=== PATIENT | female | born 1945 | race Caucasian/White ===

== ENCOUNTER 2019-12-21 13:35 | Outpatient (CLI) | payer MEDICARE, OTHER, SELFPAY ==
--- NOTE | 2019-12-21 13:47 | XR_ITS ---
WS: [id number] ANKLE LEFT TECHNIQUE: 3 views of the left ankle CLINICAL INFORMATION: LEFT ANKLE INJURY COMPARISON: None. FINDINGS: Diffuse soft tissue edema lower leg and ankle. Normal medial and lateral malleolus. Normal ankle mort ise. Normal talar dome. Plantar calcaneal spurring. XR/XR ankle LT min 3V* [id number] IMPRESSION: Marked diffuse soft tissue edema. No acute fractures.
== END 2019-12-21 13:36 | disposition home or self-care (01) ==
PROVIDERS: Family Provider Family Medicine; PCP Family Medicine; Visit Provider Nurse Practitioner Family
DX: S99.912A Unspecified injury of left ankle, initial encounter (principal); X58.XXXA Exposure to other specified factors, initial encounter; R60.9 Edema, unspecified
CPT/HCPCS: 73610

== ENCOUNTER 2020-03-09 14:23 | Outpatient (CLI) | payer MEDICARE, OTHER, SELFPAY ==
--- NOTE | 2020-03-09 | XR_ITS ---
WS: [id number] Bone mineral density performed on a [place], 03/09/2020 Clinical data: POST MENOPAUSAL Findings: The first 4 lumbar vertebral bodies demonstrated the bone mineral density of 1.198 g/cm2 for a young adult T score of 0.1. Measurement of the left hip reveals a bone mineral density of 0.929 g/cm2 with a young adult T score of -0.6. Measurement of the right hip reveals the bone mineral density of 0.919 g/cm2 for young adult T score of -0.7. XR/XR DEXA axial skeleton* [id number] Impression: Normal bone mineral density of the lumbar spine and both hips.
== END 2020-03-09 14:24 | disposition home or self-care (01) ==
LOC: RADWPI 14:27
PROVIDERS: Family Provider Family Medicine; PCP Family Medicine; Visit Provider Family Medicine
DX: Z78.0 Asymptomatic menopausal state (principal)
CPT/HCPCS: 77080

== ENCOUNTER 2020-07-23 11:39 | Emergency (ER) | payer MEDICARE, OTHER, SELFPAY ==
[2020-07-23 11:40] VITALS: BMI 25.0
[2020-07-23 11:51] VITALS: BP 168/112; PULSE 60; RESP 18; TEMP 36.4; O2SAT 97
--- NOTE | 2020-07-23 12:01 | XRR_ITS ---
PROCEDURE INFORMATION: Exam: XR Chest, 1 View Exam date and time: 07/23/2020 12:09 PM Age: 74 years old Clinical indication: Other: Weakness; Additional info: Stroke symptoms TECHNIQUE: Imaging protocol: XR of the chest Views: 1 view. COMPARISON: CR Chest 1 [place] [id number] 07/12/2015 11:44 AM FINDINGS: Lungs: Two granulomas are present in the lower left lung. There is a rounded retrocardiac opacity projecting over the right heart. This could represent a hiatal hernia, pleural mass, or paraspinous mass. Pleural space: Unremarkable. No pleural effusion. No pneumothorax. Heart/Mediastinum: No cardiomegaly. Bones/joints: Unremarkable. XR/XR chest 1V portable [id number] IMPRESSION: Rounded retrocardiac opacity projecting over the right heart. This could represent a hiatal hernia, pleural mass, or paraspinous mass. PA and lateral radiographs are recommended.
--- NOTE | 2020-07-23 12:01 | CTR_ITS ---
PROCEDURE INFORMATION: Exam: CT Head Without Contrast Exam date and time: 07/23/2020 12:09 PM Age: 74 years old Clinical indication: Other: Weakness; Additional info: Symptoms of acute stroke TECHNIQUE: Imaging protocol: Computed tomography of the head without contrast. Radiation optimization: All CT scans at this facility use at least one of these dose optimization techniques: automated exposure control; mA and/or kV adjustment per patient size (includes targeted exams where dose is matched to clinical indication); or iterative reconstruction. Other technique: STROKE PROTOCOL was implemented. COMPARISON: CT head wo con* [id number] 07/12/2015 11:49 AM RADIATION DOSE METRICS: Total DLP (mGy-cm): 788.95 FINDINGS: Brain: There is no acute intracranial hemorrhage, cerebral edema, or midline shift. Chronic microvascular ischemic changes are seen in the periventricular white matter. Age-related cerebral and cerebellar volume loss is present. Cerebral ventricles: No hydrocephalus. Bones/joints: No acute fracture. Paranasal sinuses: There is no acute sinusitis. Mastoid air cells: The mastoid air cells are clear. Orbital cavity: The included orbital structures are unremarkable. Vasculature: Atherosclerotic calcifications are seen involving the cavernous carotid arteries. Soft tissues: Unremarkable. CT/CT head wo con* [id number] IMPRESSION: 1. No acute intracranial abnormality. 2. Atrophy and chronic deep white matter ischemic changes. 3. [place] Stroke Program Early CT Score (ASPECTS) = 10 Radiation Dose CTDIVOL = (mGy): DLP = 788.95 (mGy-cm)
--- NOTE | 2020-07-23 12:01 | ECG_ITS ---
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1945 Requested By: Alyssa Luque I Order Number: [id number] Reading MD: ANISA MAHONEY Measurements Intervals [place] Rate: 61 P: 48 CO: 173 QRS: 19 QRSD: 97 T: 7 QT: 464 QTc: 469 Interpretive Statements SINUS RHYTHM NONSPECIFIC ST & T-WAVE ABNORMALITY PROLONGED QT INTERVAL Compared to ECG 07/12/2015 09:59:58 Prolonged QT interval now present Sinus bradycardia no longer present Sinus arrhythmia no longer present T-wave abnormality still present Electronically Signed On 07-23-2020 19:14:53 ETL 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
--- NOTE | 2020-07-23 12:04 | ED_ITS ---
HPI - Weakness General: Chief complaint: Neuro Symptoms/Deficit Stated complaint: WEAKNESS Time Seen by Provider: 07/23/20 11:40 Source: patient and EMS Mode of arrival: EMS Limitations: no limitations History of Present Illness: HPI Narrative: This is a 74-year-old female with a history of hypertension who presents to the emergency department with a 2-hour history of left-sided weakness. She originally said she has generalized weakness but on evaluation she is weak on the left side. She has significant difficulty walking. Because of all this she was brought in for evaluation. MD Complaint: focal weakness and difficulty walking Onset (ago): hour(s) (2) Duration: constant Location: E and [facility] Migration: none Severity: mild Exacerbating factors: none Associated symptoms: Denies chest pain, chills, confusion, melena, decreased appetite, diaphoresis, dysuria, easy bruising, fever(s), headache(s), myalgias, nausea, rash, short of breath, syncope or vomiting Review of Systems General: Reports: 10 or more systems reviewed and unremarkable except in HPI and below Const: Denies: fever(s), chills or diaphoresis Eyes: Denies: change in vision or blurry vision ENMT: Denies: throat pain, enlarged tonsils, odynophagia, hoarseness, mouth pain or swelling of lips/tongue Card: Denies: chest pain or syncope Resp: Denies: dyspnea, productive cough or non-productive cough GI: Denies: nausea, vomiting or melena : Denies: dysuria Musc: Denies: neck pain, back pain or extremity swelling Skin/Breast: Denies: rash, pruritus or erythema Neuro: Reports: weakness in extremities and difficulty walking; Denies: headache(s) or confusion Endo: Denies: polyuria, polydipsia or tired all the time Petey/Lymph: Denies: easy bruising Physical Exam Const: COMMON NORMALS: no acute distress, average body habitus, patient oriented x3, no limitations, healthy appearing, alert and well nourished HENMT: COMMON NORMALS: normocephalic, atraumatic and moist oral mucous membranes HEAD & SCALP: normocephalic and atraumatic Eye: COMMON NORMALS: Equal, round and reactive pupils present, EOMs intact bilaterally, conjunctivae normal and no scleral icterus CONJUNCTIVA: Yes conjunctivae normal PUPIL: Yes Equal, round and reactive pupils present Neck/C-Spine: COMMON NORMALS: no meningeal signs and no JVD Resp: COMMON NORMALS: normal respiratory effort, No retractions, No use of accessory muscles, clear to auscultation bilaterally and percussion normal AUSCULTATION: clear to auscultation bilaterally PERCUSSION: percussion normal Cardio: COMMON NORMALS: no JVD, regular rate, regular rhythm, S1 normal heart sound present, S2 normal heart sound present, No gallops present (Cardio), No clicks present (Cardio), No murmurs present (Cardio), No rub (Cardio) and Peripheral pulses 2+ throughout RATE: regular rate RHYTHM: regular rhythm HEART SOUNDS: S1 normal heart sound present and S2 normal heart sound present PERIPHERAL PULSES: Peripheral pulses 2+ throughout GI: COMMON NORMALS: Normal to inspection, nondistended, normoactive bowel soun ds present, Soft to palpation, non-tender, No hepatosplenomegaly present, no masses and no bruits PALPATION: Yes Soft to palpation and Yes No hepatosplenomegaly present Extremity: COMMON NORMALS: normal to inspection, full ROM, capillary refill normal, no calf tenderness and no pedal edema Neuro: COMMON NORMALS: patient oriented x3 SENSORIUM/ORIENTATION: Yes alert MENINGEAL SIGNS: Yes no meningeal signs OTHER: Patient with a left upper and lower extremity drift. 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 Her gait was disabling as she was unable to walk. 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 She therefore elected for thrombolysis as she met the criteria. She was transferred to [facility]. She had started to regain strength in her upper extremities after tPA and before she left the hospital. Consultations: Consultation #1: Discussed the patient with Dr. Gold, stroke neurologist at [facility] in [place]. It sounds like patient may have a CVA and she will conduct a telemedicine visit with the patient and call me back after. Time: 12:22 Consultation #2: Discussed with Dr. Gold again and she thinks it is a good i rip to administer TPA on this patient and transfer per our facility policy Time: 12:53 Consultation #3: Discussed the patient with Dr. Murrieta, neurologist at [facility] in [place]. He kindly accepted the patient to his service. Time: 14:54 Vital Signs: Vital signs: Vital Signs Temperature 98.1 F 07/23/20 16:19 Pulse Rate 78 07/23/20 16:19 Respiratory Rate 18 07/23/20 16:19 Blood Pressure 229/110 07/23/20 17:07 Pulse Oximetry 99 07/23/20 16:19 MDM - Weakness MDM Narrative: Medical decision making narrative: Patient with clinical features of a CVA and her symptoms were disabling, especially her gait. After consultation with neurology she was given tPA and already started showing sings of improvement before she left the ED. She is transferred to [facility]. She was hypertensive and her BP was too high for tPA so she was started on a nicardipine drip to get her SBP under 185 which we were successfully able to do. Medical Records: Attestation: I reviewed the patient's medical records. Lab Data: Attestation: I reviewed the patient's lab results. Labs: Lab Results 07/23/20 07/23/20 07/23/20 Range/Units 12:00 12:00 12:00 WBC 6.4 (4.0-10.0) 10^3/ uL RBC 4.28 (4.1-5.3) 10^6/u L Hgb 12.3 (11.5-15.3) g/dL Hct 37.1 (37.0-47.0) % MCV 86.7 (81-99) fL MCH 28.7 (28.0-34.0) pg MCHC 33.2 (30.0-36.0) g/dL RDW 13.0 (12.1-15.1) % Plt Count 234 (130-400) 10^3/c mm MPV 9.5 (7.4-10.4) fL Neut % (Auto) 61.7 % Lymph % (Auto) 27.4 % [place] % (Auto) 7.5 % Eos % (Auto) 2.6 % Baso % (Auto) 0.6 % Neut # (Auto) 3.96 (1.8-7.7) 10^3/u L Lymph # (Auto) 1.8 (0.8-4.8) 10^3/u L [place] # (Auto) 0.5 (0.2-0.9) 10^3/u L Eos # (Auto) 0.2 (0.0-0.8) 10^3/u L Baso # (Auto) 0.0 (0.0-0.1) 10^3/u L Nucleated RBC % (a uto) 0 % Nucleated RBCs # 0.0 /100WBC PT 13.80 (12.1-14.9) SECO NDS INR 1.03 (0.8-1.2) APTT 26.2 (23.9-36.7) SECO NDS Sodium 134 L (136-145) mmol/L Potassium 3.3 L (3.5-5.1) mmol/L Chloride 97 L (98-107) mmol/L Carbon Dioxide 26 (22-29) mmol/L Anion Gap 14.3 (5-19) BUN 10 (8-23) mg/dL Creatinine 0.6 (0.5-0.9) mg/dL GFR Calculation Not Reportable Glucose 105 (65-115) mg/dL POC Glucose (70-110) mg/dL Calculated Osmolal ity 277 L (285-295) mOsm/k g Calcium 9.0 (8.5-10.5) mg/dL Total Bilirubin 0.4 (0.15-1.2) mg/dL AST 13 (0-32) U/L ALT 11 (0-33) U/L Alkaline Phosphata se 80 (35-105) IU/L Total Protein 6.6 (6.6-8.7) g/dL Albumin 3.9 (3.5-5.2) g/dL Globulin 2.7 (1.3-4.6) g/dL Urine Color (Yellow) Urine Appearance (CLEAR) Urine pH (5-7) Ur Specific Gravit y (1.005-1.030) Urine Protein (Negative) Urine Glucose (UA) (Normal) Urine Ketones (Negative) Urine Blood (Negative) Urine Nitrate (Negative) Urine Bilirubin (Negative) Prot Sulfosalicyli c Acd (Negative) Urine Urobilinogen (Negative) mg/dL Ur Leukocyte [place] (Negative) Urine RBC (0-2) /hpf Urine WBC (0-5) /hpf Ur Squamous Epith Cells (0-5) /hpf Amorphous Sediment /hpf Urine Bacteria (NONE) /hpf Urine Opiates Scre en (Negative) ng/mL Ur Barbiturates Sc reen (Negative) ng/mL Ur Phencyclidine S crn (Negative) ng/mL Ur Amphetamines Sc reen (Negative) ng/mL U Benzodiazepines Scrn (Negative) ng/mL Urine Cocaine Scre en (Negative) ng/mL U Marijuana (THC) Screen (Negative) ng/mL SARS-CoV-2 Ag (Rap id) (Negative) 07/23/20 07/23/20 07/23/20 Range/Units 12:34 12:45 12:45 WBC (4.0-10.0) 10^3/ uL RBC (4.1-5.3) 10^6/u L Hgb (11.5-15.3) g/dL Hct (37.0-47.0) % MCV (81-99) fL MCH (28.0-34.0) pg MCHC (30.0-36.0) g/dL RDW (12.1-15.1) % Plt Count (130-400) 10^3/c mm MPV (7.4-10.4) fL Neut % (Auto) % Lymph % (Auto) % [place] % (Auto) % Eos % (Auto) % Baso % (Auto) % Neut # (Auto) (1.8-7.7) 10^3/u L Lymph # (Auto) (0.8-4.8) 10^3/u L [place] # (Auto) (0.2-0.9) 10^3/u L Eos # (Auto) (0.0-0.8) 10^3/u L Baso # (Auto) (0.0-0.1) 10^3/u L Nucleated RBC % (a uto) % Nucleated RBCs # /100WBC PT (12.1-14.9) SECO NDS INR (0.8-1.2) APTT (23.9-36.7) SECO NDS Sodium (136-145) mmol/L Potassium (3.5-5.1) mmol/L Chloride (98-107) mmol/L Carbon Dioxide (22-29) mmol/L Anion Gap (5-19) BUN (8-23) mg/dL Creatinine (0.5-0.9) mg/dL GFR Calculation Glucose (65-115) mg/dL POC Glucose 111 (70-110) mg/dL Calculated Osmolal ity (285-295) mOsm/k g Calcium (8.5-10.5) mg/dL Total Bilirubin (0.15-1.2) mg/dL AST (0-32) U/L ALT (0-33) U/L Alkaline Phosphata se (35-105) IU/L Total Protein (6.6-8.7) g/dL Albumin (3.5-5.2) g/dL Globulin (1.3-4.6) g/dL Urine Color Straw (Yellow) Urine Appearance Cloudy (CLEAR) Urine pH 8 H (5-7) Ur Specific Gravit y 1.010 (1.005-1.030) Urine Protein Neg (Negative) Urine Glucose (UA) Norm (Normal) Urine Ketones Negative (Negative) Urine Blood Neg (Negative) Urine Nitrate Negative (Negative) Urine Bilirubin Neg (Negative) Prot Sulfosalicyli c Acd Negative (Negative) Urine Urobilinogen Norm (Negative) mg/dL Ur Leukocyte [place] Negative (Negative) Urine RBC None (0-2) /hpf Urine WBC None (0-5) /hpf Ur Squamous Epith Cells 15-25 H (0-5) /hpf Amorphous Sediment 1+ /hpf Urine Bacteria 2+ H (NONE) /hpf Urine Opiates Scre en Negative (Negative) ng/mL Ur Barbiturates Sc reen Negative (Negative) ng/mL Ur Phencyclidine S crn Negative (Negative) ng/mL Ur Amphetamines Sc reen Negative (Negative) ng/mL U Benzodiazepines Scrn Negative (Negative) ng/mL Urine Cocaine Scre en Negative (Negative) ng/mL U Marijuana (THC) Screen Negative (Negative) ng/mL SARS-CoV-2 Ag (Rap id) (Negative) 07/23/20 Range/Units 14:36 WBC (4.0-10.0) 10^3/ uL RBC (4.1-5.3) 10^6/u L Hgb (11.5-15.3) g/dL Hct (37.0-47.0) % MCV (81-99) fL MCH (28.0-34.0) pg MCHC (30.0-36.0) g/dL RDW (12.1-15.1) % Plt Count (130-400) 10^3/c mm MPV (7.4-10.4) fL Neut % (Auto) % Lymph % (Auto) % [place] % (Auto) % Eos % (Auto) % Baso % (Auto) % Neut # (Auto) (1.8-7.7) 10^3/u L Lymph # (Auto) (0.8-4.8) 10^3/u L [place] # (Auto) (0.2-0.9) 10^3/u L Eos # (Auto) (0.0-0.8) 10^3/u L Baso # (Auto) (0.0-0.1) 10^3/u L Nucleated RBC % (a uto) % Nucleated RBCs # /100WBC PT (12.1-14.9) SECO NDS INR (0.8-1.2) APTT (23.9-36.7) SECO NDS Sodium (136-145) mmol/L Potassium (3.5-5.1) mmol/L Chloride (98-107) mmol/L Carbon Dioxide (22-29) mmol/L Anion Gap (5-19) BUN (8-23) mg/dL Creatinine (0.5-0.9) mg/dL GFR Calculation Glucose (65-115) mg/dL POC Glucose (70-110) mg/dL Calculated Osmolal ity (285-295) mOsm/k g Calcium (8.5-10.5) mg/dL Total Bilirubin (0.15-1.2) mg/dL AST (0-32) U/L ALT (0-33) U/L Alkaline Phosphata se (35-105) IU/L Total Protein (6.6-8.7) g/dL Albumin (3.5-5.2) g/dL Globulin (1.3-4.6) g/dL Urine Color (Yellow) Urine Appearance (CLEAR) Urine pH (5-7) Ur Specific Gravit y (1.005-1.030) Urine Protein (Negative) Urine Glucose (UA) (Normal) Urine Ketones (Negative) Urine Blood (Negative) Urine Nitrate (Negative) Urine Bilirubin (Negative) Prot Sulfosalicyli c Acd (Negative) Urine Urobilinogen (Negative) mg/dL Ur Leukocyte [place] (Negative) Urine RBC (0-2) /hpf Urine WBC (0-5) /hpf Ur Squamous Epith Cells (0-5) /hpf Amorphous Sediment /hpf Urine Bacteria (NONE) /hpf Urine Opiates Scre en (Negative) ng/mL Ur Barbiturates Sc reen (Negative) ng/mL Ur Phencyclidine S crn (Negative) ng/mL Ur Amphetamines Sc reen (Negative) ng/mL U Benzodiazepines Scrn (Negative) ng/mL Urine Cocaine Scre en (Negative) ng/mL U Marijuana (THC) Screen (Negative) ng/mL SARS-CoV-2 Ag (Rap id) Negative (Negative) Imaging Data^: CT Head: Radiologist's impression: [address] [address] [address] Scan Report Signed Patient: Cheyanne Fonseca #: [id number] : 3Acct#:[id number] Age/Sex: 74 / FADM Date: 07/23/20 Loc: [facility]/Bed: Attending Dr: Ordering Provider/Ordering MD: Alyssa Luque MD, [facility] Date of Service: 07/23/20 Procedure(s): CT head wo con* [id number] Accession Number(s): [id number] Report Number: [id number] PROCEDURE INFORMATION: Exam: CT Head Without Contrast Exam date and time: 07/23/2020 12:09 PM Age: 74 years old Clinical indication: Other: Weakness; Additional info: Symptoms of acute stroke TECHNIQUE: Imaging protocol: Computed tomography of the head without contrast. Radiation optimization: All CT scans at this facility use at least one of these dose optimization techniques: automated exposure control; mA and/or kV adjustment per patient size (includes targeted exams where dose is matched to clinical indication); or iterative reconstruction. Other technique: STROKE PROTOCOL was implemented. COMPARISON: CT head wo con* [id number] 07/12/2015 11:49 AM RADIATION DOSE METRICS: Total DLP (mGy-cm): 788.95 FINDINGS: Brain: There is no acute intracranial hemorrhage, cerebral edema, or midline shift. Chronic microvascular ischemic changes are seen in the periventricular white matter. Age-related cerebral and cerebellar volume loss is present. Cerebral ventricles: No hydrocephalus. Bones/joints: No acute fracture. Paranasal sinuses: There is no acute sinusitis. Mastoid air cells: The mastoid air cells are clear. Orbital cavity: The included orbital structures are unremarkable. Vasculature: Atherosclerotic calcifications are seen involving the cavernous carotid arteries. Soft tissues: Unremarkable. CT/CT head wo con* [id number] IMPRESSION: 1. No acute intracranial abnormality. 2. Atrophy and chronic deep white matter ischemic changes. 3. [place] Stroke Program Early CT Score (ASPECTS) = 10 Radiation Dose CTDIVOL = (mGy): DLP = 788.95 (mGy-cm) Dictated By:Aryan Hastings MD Signed By:Aryan Hastings MDSigned Date/Time:07/23/20 1231 DD/ 1230 CXR: Radiologist's impression: [address] [address] XRay Report Signed Patient: Cheyanne Fonseca #: [id number] : 3Acct#:[id number] Age/Sex: 74 / FADM Date: 07/23/20 Loc: [facility]/Bed: Attending Dr: Ordering Provider/Ordering MD: Alyssa Luque MD, [facility] Date of Service: 07/23/20 Procedure(s): XR chest 1V portable [id number] Accession Number(s): [id number] Report Number: [id number] PROCEDURE INFORMATION: Exam: XR Chest, 1 View Exam date and time: 07/23/2020 12:09 PM Age: 74 years old Clinical indication: Other: Weakness; Additional info: Stroke symptoms TECHNIQUE: Imaging protocol: XR of the chest Views: 1 view. COMPARISON: CR Chest 1 [place] [id number] 07/12/2015 11:44 AM FINDINGS: Lungs: Two granulomas are present in the lower left lung. There is a rounded retrocardiac opacity projecting over the right heart. This could represent a hiatal hernia, pleural mass, or paraspinous mass. Pleural space: Unremarkable. No pleural effusion. No pneumothorax. Heart/Mediastinum: No cardiomegaly. Bones/joints: Unremarkable. XR/XR chest 1V portable [id number] IMPRESSION: Rounded retrocardiac opacity projecting over the right heart. This could represent a hiatal hernia, pleural mass, or paraspinous mass. PA and lateral radiographs are recommended. Dictated By:Aryan Hastings MD Signed By:Aryan Hastings MDSigned Date/Time:07/23/201258 DD/ 57 EKG Data^: EKG 1: Attestation: I personally reviewed and interpreted this EKG as follows: EKG interpretation date: 07/23/20 EKG interpretation time: 11:52 Prior EKG tracings: not available for review Interpretation: NSR HR [address] changes prolonged QT interval Discharge Plan Discharge Patient Disposition: Xfer Short-Term Hosp Clinical Impression: Cerebrovascular accident Qualifiers: CVA mechanism: unspecified Qualified Code(s): I63.9 - Cerebral infarction, unspecified Discharge Orders: Transfer Out of Facility (Order); Ordered 07/27/20 Ordered By: Alyssa Luque Referrals: Migue Maher MD [Primary Care Provider] - Coding Level of Care Code ED Special Education Classroom Aide for Chg Fwd Exam Comprehensive
[2020-07-23 12:08] LABS: Basophils % 0.6 %; Eosinophils # 0.2 10^3/uL (0.0-0.8); Eosinophils % 2.6 %; Hematocrit 37.1 % (37.0-47.0); Hemoglobin 12.3 g/dL (11.5-15.3); Lymphocytes # 1.8 10^3/uL (0.8-4.8); Lymphocytes % 27.4 %; Mean Corpuscular HGB Conc 33.2 g/dL (30.0-36.0); Mean Corpuscular Hemoglobin 28.7 pg (28.0-34.0); Mean Corpuscular Volume 86.7 fL (81-99); Mean Platelet Volume 9.5 fL (7.4-10.4); Monocytes # 0.5 10^3/uL (0.2-0.9); Monocytes % 7.5 %; Neutrophils # 3.96 10^3/uL (1.8-7.7); Neutrophils % 61.7 %; Nucleated Red Blood Cells % 0 %; Platelet Count 234 10^3/cmm (130-400); Red Blood Count 4.28 10^6/uL (4.1-5.3); White Blood Count 6.4 10^3/uL (4.0-10.0)
[2020-07-23 12:25] LABS: INR 1.03 (0.8-1.2)
[2020-07-23 12:26] LABS: Partial Thromboplastin Time 26.2 SECONDS (23.9-36.7)
[2020-07-23 12:32] LABS: Alanine Aminotransferase 11 U/L (0-33); Albumin Level 3.9 g/dL (3.5-5.2); Alkaline Phosphatase 80 IU/L (35-105); Anion Gap 14.3 (5-19); Aspartate Amino Transferase 13 U/L (0-32); Blood Urea Nitrogen 10 mg/dL (8-23); Carbon Dioxide 26 mmol/L (22-29); Chloride 97 mmol/L (98-107); Globulin 2.7 g/dL (1.3-4.6); Glucose 105 mg/dL (65-115); Osmolality Calculated 277 mOsm/kg (285-295); Potassium 3.3 mmol/L (3.5-5.1); Sodium 134 mmol/L (136-145); Total Bilirubin 0.4 mg/dL (0.15-1.2); Total Protein 6.6 g/dL (6.6-8.7)
[2020-07-23 12:39] LABS: Glucose Point of Care 111 mg/dL (70-110)
[2020-07-23] MEDS: nicardipine 20 MG/200 ML PREMIX 5 MG IV ×2 (13:17→17:13)
[2020-07-23 14:09] LABS: Amphetamines Screen Urine Negative (Negative); Barbiturates Screen Urine Negative (Negative); Benzodiazepines Screen Urine Negative (Negative); Cocaine Screen Urine Negative (Negative); Opiate Screen Urine Negative (Negative); PCP Screen Urine Negative (Negative); THC Screen Urine Negative (Negative)
[2020-07-23 14:17] LABS: Add Urine Microscopic? YES; Bacteria Urine 2+ /hpf; Bilirubin Urine Neg (Negative); Blood Urine Neg (Negative); Glucose Urine UA Norm (Normal); Ketones Urine Negative (Negative); Leukocyte Esterase Urine Negative (Negative); Nitrate Urine Negative (Negative); Protein Urine Neg (Negative); Squamous Epithelial Cell Urine 15-25 /hpf (0-5); Sulfosalicylic Acid Urine Negative (Negative); Urine Appearance Cloudy (CLEAR); Urine Color Straw (Yellow); Urobilinogen Urine Norm (Negative); pH Urine 8 (5-7)
[2020-07-23 14:18] LABS: Add Urine Culture? No; Amorphous Sediment Urine 1+ /hpf
[2020-07-23 15:09] LABS: SARS Covid-2 Antigen Negative (Negative)
[2020-07-23] MEDS: ondansetron 2 mg/ML SDV 2 mL 4 MG IVP (15:36)
[2020-07-23 16:19] VITALS: BP 149/66; PULSE 78; RESP 18; TEMP 36.7; O2SAT 99
[2020-07-23 17:07] VITALS: BP 229/110
--- NOTE | 2020-07-23 17:09 | PC.NURSE ---
beginning bp was 229/110
--- NOTE | 2020-07-23 17:44 | PC.NURSE ---
patient sent to [facility] per ems
== END 2020-07-23 17:44 | disposition short-term general hospital (02) ==
PROVIDERS: Emergency Provider Family Medicine; PCP Family Medicine
DX: I63.9 Cerebral infarction, unspecified (principal)
CPT/HCPCS: 12345; 36416; 70450; 71045; 80053; 80306; 81001; 82962; 85025; 85610; 85730; 87426; 93005; 96365; 96366; 96375; 99282; 99285; J2405; J2997

== ENCOUNTER → 2020-08-01 14:55 | Outpatient (BNVA) | payer MEDICARE, SELFPAY | PROVIDERS: PCP Family Medicine; Visit Provider Internal Medicine Cardiovascular Disease | DX: I63.9 Cerebral infarction, unspecified (principal); I10 Essential (primary) hypertension | CPT/HCPCS: 80048; 83735 ==

== ENCOUNTER 2021-10-16 12:08 | Observation (INO) | payer MEDICARE, OTHER, SELFPAY ==
[2021-10-16] VITALS (24 sets, daily range): BP systolic 122–227; BP diastolic 55–102; PULSE 43–83; RESP 5–20; TEMP 36.3–36.7; O2SAT 95–98; BMI 30.4
--- NOTE | 2021-10-16 | USCV_ITS ---
Carotid Duplex Cheyanne Fonseca Age: 76 Gender: F : 1945 Exam Date: 10/16/2021 21:24 Ordering Phys: Juan Flower MD Technologist: [id number] Exam Location: [facility] [place] Indication: Syncope Risk Factors: Unknown Previous Vascular Surgery: Unknown Right Brachial BP: / Left Brachial BP: / Right Left Velocity (cm/s) Spectral Plaque Velocity (cm/s) Spectral Plaque Syst/Diast Broadening Syst/Diast Broadening 108.10/22.10 Prox CCA 114.70/ 19.80 99.20/ 14.30 Mid CCA 48.50 / 7.70 71.70/ 14.30 Distal CCA 62.80 / 7.70 100.30/24.30 Prox ICA 79.40 / 19.80 86.00/ 23.20 Mid ICA 101.40/ 24.30 66.20/ 15.40 Distal ICA 79.40 / 20.90 149.90 ECA 160.00 0.93 ICA/CCA 0.88 Antegrade Vertebral Antegrade 46.30/ 9.90 cm/s 42.20/ 8.50 cm/s Tri Subclavian Bi 122.4 211.1 0 0 CONCLUSIONS Right ICA stenosis <50%. Mild atheromatous plaque right carotid bulb/ICA. Left ICA stenosis <50%. Mild atheromatous plaque left carotid bulb/ICA. Normal antegrade Doppler flow noted in the right vertebral artery. Normal antegrade Doppler flow noted in the left vertebral artery. Angelo Ghotra MD (Electronically Signed) Final Date: 17 October 2021 09:00 S
--- NOTE | 2021-10-16 | USCV_ITS ---
LE Venous Duplex BILATERAL Cheyanne Fonseca Age: 76 Gender: F : 1945 Exam Date: 10/16/2021 21:48 Ordering Phys: Juan Flower MD Technologist: IRIS [place] [facility] [place]: LE Swelling HISTORY: Lower extremity swelling. Lower extremity pain. PROCEDURES: Venous duplex imaging was performed in bilateral lower extremities. The following venous structures were evaluated: common femoral vein, profunda vein, proximal portion of the greater saphenous vein, superficial femoral vein, and the popliteal vein. In addition, the posterior tibial and peroneal trunk were evaluated. Serial compression, augmentation maneuvers, and spectral Doppler flow evaluation were performed. FINDINGS: No evidence of DVT seen in any vessel visualized at this time. CONCLUSIONS No evidence of right lower extremity DVT. No evidence of left lower extremity DVT. Angelo Ghotra MD (Electronically Signed) Final Date: 17 October 2021 08:58 S
--- NOTE | 2021-10-16 12:22 | CT_ITS ---
WS: [id number] CT CERVICAL SPINE HISTORY: fall TECHNIQUE: Contiguous 2.5 mm axial imaging performed through the entire cervical spine. Sagittal and coronal reformats also performed. All CT scans at [facility] use at least one of these dose o ptimization techniques: automated exposure control; mA and/or kV adjustment per patient size (include s targeted exams where dose is matched to clinical indication); or iterative reconstruction. DLP: 594.28 mGy.cm COMPARISON: 10/24/2016 Mild curvature cervical spine. Posterior alignment is normal. No acute fractures are identified. Disc spaces are narrowed. Craniocervical junction is intact. Lateral masses are aligned and the odontoid process is normal. Bilateral facet joint arthritis throughout the cervical spine but greatest on the LEFT. Lung apices are clear. Visualized soft tissues of the neck are negative. There is moderate calcificat ion within the cervical portions of the carotid arteries. No adenopathy. CT/CT cervical spin wo con* [id number] IMPRESSION: 1. No acute cervical spine fracture. 2. Scoliosis and degenerative facet joint arthritis.
--- NOTE | 2021-10-16 12:22 | CT_ITS ---
WS: [id number] CT HEAD NONCONTRAST HISTORY: trauma TECHNIQUE: Contiguous axial imaging performed through the brain in 2.5 mm imaging. Bone and soft tiss ue windows. Sagittal and coronal reformats reviewed. All CT scans at [facility] use at least one of these dose optimization techniques: automated exposure control; mA and/or kV adjustment per pa tient size (includes targeted exams where dose is matched to clinical indication); or iterative recon struction. DLP: 919.58 mGy.cm COMPARISON: 07/12/2015 No acute intracranial hemorrhage, midline shift or mass effect. Mild atrophy and mild chronic microvascular ischemic disease. Ventricles: Normal size with no hydrocephalus. No inferior displacement of cerebellar tonsils. Paranasal sinuses: As visualized are clear. Mastoid air cells: Well pneumatized. Calvarium and scalp: Skull is intact with no soft tissue edema or swelling. Moderate soft tissue edema centered over the RIGHT zygomatic arch and RIGHT face. CT/CT head wo con* [id number] IMPRESSION: 1. No acute intracranial hemorrhage or edema. 2. Mild cerebral atrophy and chronic ischemic disease. 3. Soft tissue hematoma and contusion centered over the RIGHT zygomatic arch.
--- NOTE | 2021-10-16 12:22 | CT_ITS ---
WS: [id number] CT FACIAL BONES HISTORY: trauma TECHNIQUE: Images obtained from the supraorbital location through the mandible. Soft tissue and bone windows are reviewed. Coronal and sagittal reformats have also been submitted. DLP: 714.[address] scans at [facility] use at least one of these dose optimization techniques: automated e xposure control; mA and/or kV adjustment per patient size (includes targeted exams where dose is matc hed to clinical indication); or iterative reconstruction. COMPARISON: 11/09/2011 No nasal bone fracture. Nasal septum remains midline. No zygomatic arch fracture. No air-fluid levels within the sinuses. Pterygoid plates are intact. Mandibular condyles are normal. No mandible fractur e. Floor of the orbits is normal. No fracture through the roof of the orbits. There is a moderate amount of induration in the soft tissues centered over the RIGHT superior zygomat ic arch and a small laceration. The underlying bones are normal. Normal appearance of the orbits and globes. Tongue base is normal. Visualized parotid gland is normal. There are very few small subcentimeter cer vical chain lymph nodes. CT/CT facial bones wo con* [id number] IMPRESSION: 1. No facial bone fracture. 2. Soft tissue contusion centered over the RIGHT face and zygomatic arch. No u nderlying fracture.
--- NOTE | 2021-10-16 12:22 | ECG_ITS ---
[facility] Test Date: 2021-10-16 Pat Name: Cheyanne Fonseca Department: Room: Gender: Female Store Facility Technician: : 1945 Requested By: Steven Benitez Order Number: [id number] Hector MD: Basilia Hare M.D. Measurements Intervals [place] Rate: 66 P: 42 LA: 169 QRS: 14 QRSD: 89 T: 41 QT: 425 QTc: 447 Interpretive Statements SINUS RHYTHM NONSPECIFIC ST & T-WAVE ABNORMALITY Compared to ECG 07/23/2020 11:51:53 Prolonged QT interval no longer present T-wave abnormality still present Electronically Signed On 10-16-2021 17:42:27 RESIDENTIAL PROGRAM DIRECTOR by Basilia Hare M.D. [id number]
--- NOTE | 2021-10-16 12:23 | ED_ITS ---
HPI - Syncope General: Chief Complaint: Syncope Stated Complaint: STOKE LIKE SYMPTOMS, L SIDE WEAKNESS, HEADACHE Time Seen by Provider: 10/16/21 12:12 History of Present Illness: 68-year-old female presents to the emergency room with left-sided weakness and headache. She reports she was walking at [facility] and collapsed. She had no presyncopal symptoms. She denies any chest pain d izziness lightheadedness. She previously did have a stroke approximately 18 months ago. She is not have any weakness in any of her extremities at this time. Has no other focal neurologic deficits noted she does have some abrasion to the right side of her face no difficulty with speech or swallowing. She did have a brief loss of consciousness. She is on clopidogrel but she is not on any other anticoagulants. She does have a history of hypertension. MD complaint: loss of consciousness and collapsed Onset (ago): minute(s) Prodromal symptoms: none Witnessed: Yes - by Bystander Context: other (Walking) Associated symptoms: Reports weakness; Deny abdominal pain, chest pain, fever(s), headache(s), lightheadedness, nausea, short of breath or vertigo Treatments prior to arrival: none Review of Systems Const: Denies: fever(s) ENMT: Denies: throat pain, ear or mastoid pain, nasal discharge or nasal congestion Card: Denies: chest pain or lightheadedness Resp: Denies: dyspnea, productive cough or non-productive cough GI: Denies: abdominal pain or nausea : Denies: flank pain, difficulty voiding, dysuria, urinary frequency or urinary urgency Skin/Breast: Denies: rash or pruritus Neuro: Denies: headache(s) or vertigo [facility] ED PFSH: Medical History CVA (cerebral vascular accident) Depression Dyslipidemia Hypertension Family History Other CAD (coronary artery disease) Social History Smoking and tobacco status: former smoker Alcohol intake: never Physical Exam Const: GENERAL APPEARANCE: cooperative and comfortable ORIENTATION/CONSCIOUSNESS: Yes awake, Yes oriented to person, Yes oriented to place and Yes oriented to time HENMT: COMMON NORMALS: normocephalic and hearing grossly normal bilaterally HEAD & SCALP: normocephalic OTHER: Abrasions and slight swelling on the lateral right superior orbital ridge and over the right zygomatic arch Eye: COMMON NORMALS: Equal, round and reactive pupils present, EOMs intact bilaterally, conjunctivae normal and no scleral icterus CONJUNCTIVA: Yes conjunctivae normal PUPIL: Yes Equal, round and reactive pupils present Neck/C-Spine: COMMON NORMALS: no JVD Resp: COMMON NORMALS: normal respiratory effort, No retractions, No use of accessory muscles and clear to auscultation bilaterally AUSCULTATION: clear to auscultation bilaterally Cardio: COMMON NORMALS: no JVD, regular rate, regular rhythm and No murmurs present (Cardio) RATE: regular rate RHYTHM: regular rhythm GI: COMMON NORMALS: Soft to palpation and No hepatosplenomegaly present AUSCULTATION: Yes normoactive bowel sounds PALPATION: Yes Soft to palpation, No Tenderness to palpation present (GI), No Guarding due to palpation present ( GI) and Yes No hepatosplenomegaly present Extremity: COMMON NORMALS: normal to inspection, capillary refill normal, no clubbing, cyanosis or edema, no calf tenderness and no pedal edema Neuro: SENSORIUM/ORIENTATION: Yes oriented to person, Yes oriented to place and Yes oriented to time Skin: COMMON NORMALS: no rashes or lesions noted GENERAL SKIN EXAM: no rashes or lesions noted Course Vital Signs: Vital signs: Vital Signs Pulse Rate 61 10/16/21 14:45 Respiratory Rate 18 10/16/21 14:45 Blood Pressure 136/81 10/16/21 14:45 Pulse Oximetry 96 10/16/21 14:45 MDM - Syncope Medical Decision Making Patient has syncopal episode without any real prodromal symptoms. Echo done about 2 years ago did not show any significant abnormalities. She recently did have a stroke a few months ago was hospitalized here those records reviewed. No acute fractures she has an abrasion on the lateral supraorbital ridge not significant nor amenable to suturing at this time. Wearing Goeden put her on observation due to the syncope to rule out other potential causes and for further evaluation discussed with hospitalist orders written Lab Data : 10/16/21 12:00 10/16/21 12:00 Radiology Impressions Cervical Spine CT 10/16/21 12:22 IMPRESSION: 1. No acute cervical spine fracture. 2. Scoliosis and degenerative facet joint arthritis. Face CT 10/16/21 12:22 IMPRESSION: 1. No facial bone fracture. 2. Soft tissue contusion centered over the RIGHT face and zygomatic arch. No underlying fracture. Head CT 10/16/21 12:22 IMPRESSION: 1. No acute intracranial hemorrhage or edema. 2. Mild cerebral atrophy and chronic ischemic disease. 3. Soft tissue hematoma and contusion centered over the RIGHT zygomatic arch. Ribs X-Ray 10/16/21 13:11 IMPRESSION: 1. Probable nondisplaced fracture the posterior right 10th rib. Old right sixth rib fracture. 2. No pneumothorax. Shoulder X-Ray 10/16/21 13:11 IMPRESSION: 1. No fracture or dislocation. Other minor findings as above. Laboratory Results WBC 8.3 10^3/uL (4.0-10.0) 10/16/21 12:00 RBC 4.46 10^6/uL (4.1-5.3) 10/16/21 12:00 Hgb 12.4 g/dL (11.5-15.3) 10/16/21 12:00 Hct 38.0 % (37.0-47.0) 10/16/21 12:00 MCV 85.2 fl (81-99) 10/16/21 12:00 MCH 27.8 pg (28.0-34.0) L 10/16/21 12:00 MCHC 32.6 g/dL (30.0-36.0) 10/16/21 12:00 RDW 14.1 % (12.1-15.1) 10/16/21 12:00 Plt Count 305 10^3/cmm (130-400) 10/16/21 12:00 MPV 10.2 fL (7.4-10.4) 10/16/21 12:00 Neut % (Auto) 64.2 % 10/16/21 12:00 Lymph % (Auto) 25.9 % 10/16/21 12:00 [place] % (Auto) 6.7 % 10/16/21 12:00 Eos % (Auto) 2.2 % 10/16/21 12:00 Baso % (Auto) 0.5 % 10/16/21 12:00 Neut # (Auto) 5.35 10^3/uL (1.8-7.7) 10/16/21 12:00 Lymph # (Auto) 2.2 10^3/uL (0.8-4.8) 10/16/21 12:00 [place] # (Auto) 0.6 10^3/uL (0.2-0.9) 10/16/21 12:00 Eos # (Auto) 0.2 10^3/uL (0.0-0.8) 10/16/21 12:00 Baso # (Auto) 0.0 10^3/uL (0.0-0.1) 10/16/21 12:00 Nucleated RBC % (auto) 0 % 10/16/21 12:00 Nucleated RBCs # 0.0 /100WBC 10/16/21 12:00 D-Dimer 0.67 ug/mIFEU (0-0.59) H 10/16/21 12:00 Sodium 135 mmol/L (136-145) L 10/16/21 12:00 Potassium 4.2 mmol/L (3.5-5.1) 10/16/21 12:00 Chloride 98 mmol/L (98-107) 10/16/21 12:00 Carbon Dioxide 22 mmol/L (22-29) 10/16/21 12:00 Anion Gap 19.2 (5-19) H 10/16/21 12:00 BUN 17 mg/dL (8-23) 10/16/21 12:00 Creatinine 0.6 mg/dL (0.5-0.9) 10/16/21 12:00 GFR Calculation Not Reportable 10/16/21 12:00 Glucose 99 mg/dL (65-115) 10/16/21 12:00 Calculated Osmolality 282 mOsm/kg (285-295) L 10/16/21 12:00 Calcium 9.7 mg/dL (8.5-10.5) 10/16/21 12:00 Magnesium 2.0 mg/dL (1.7-2.3) 10/16/21 12:00 Total Bilirubin 0.7 mg/dL (0.15-1.2) 10/16/21 12:00 AST 16 U/L (0-32) 10/16/21 12:00 ALT 14 U/L (0-33) 10/16/21 12:00 Alkaline Phosphatase 97 IU/L (35-105) 10/16/21 12:00 Troponin T Baseline 7 ng/L (0-10) 10/16/21 12:00 Troponin T 120 Minute 6.00 ng/L (0-10) 10/16/21 14:00 Delta Troponin T -1.0 ABS# (0-10) L 10/16/21 14:00 NT-Pro-B Natriuret Pep 178 pg/mL (0-450) 10/16/21 12:00 Total Protein 7.3 g/dL (6.6-8.7) 10/16/21 12:00 Albumin 4.4 g/dL (3.5-5.2) 10/16/21 12:00 Globulin 2.9 g/dL (1.3-4.6) 10/16/21 12:00 TSH 1.20 uIU/mL (0.27-4.20) 10/16/21 12:00 Urine Color Yellow (Yellow) 10/16/21 13:42 Urine Appearance Cloudy (CLEAR) 10/16/21 13:42 Urine pH 7 (5-7) 10/16/21 13:42 Ur Specific [employer]on 1.010 (1.005-1.030) 10/16/21 13:42 Urine Protein Neg (Negative) 10/16/21 13:42 Urine Glucose (UA) Norm (Normal) 10/16/21 13:42 Urine Ketones 1+ (Negative) H 10/16/21 13:42 Urine Blood Neg (Negative) 10/16/21 13:42 Urine Nitrate Negative (Negative) 10/16/21 13:42 Urine Bilirubin Neg (Negative) 10/16/21 13:42 Urine Urobilinogen Norm mg/dL (Negative) 10/16/21 13:42 Ur Leukocyte Esterase 2+ (Negative) H 10/16/21 13:42 Urine RBC None /hpf (0-2) 10/16/21 13:42 Urine WBC 25-40 /hpf (0-5) H 10/16/21 13:42 Ur Squamous Epith Cells 80-100 /hpf (0-5) H 10/16/21 13:42 Amorphous Sediment Not Reportable 10/16/21 13:42 Urine Bacteria 1+ /hpf (NONE) H 10/16/21 13:42 Discharge Plan Discharge Patient Disposition: Placed in Observation Clinical Impression: Syncope and collapse, CVA (cerebral vascular accident), Hypertension, Rib fracture Condition: Stable Prescriptions: No Action magnesium oxide 400 mg magnesium tablet 400 mg PO DAILY 0RF bupropion HCl 150 mg tablet sustained-release 12 hr 150 mg PO BID 0RF lorazepam 0.5 mg tablet 0.5 mg PO BID PRN (Reason: Anxiety) 0RF clonidine HCl 0.1 mg tablet 0.1 mg PO QID PRN (Reason: hypertensive emergency) 0RF propranolol 40 mg tablet See Rx Instructions .ROUTE .COMPLEX 0RF Rx Instructions: 40mg po qam and 20mg po qpm Vitamin C 500 mg Tablet 500 mg PO DAILY 0RF Vitamin D3 50 mcg (2,000 unit) Tablet 50 mcg PO DAILY 0RF atorvastatin 40 mg tablet 40 mg PO BEDTIME 0RF potassium chloride 8 mEq capsule, extended release 8 meq PO QAM 0RF clopidogrel 75 mg tablet 75 mg PO QAM 0RF hydrochlorothiazide 25 mg tablet 50 mg PO QAM 0RF valsartan 160 mg tablet 160 mg PO QAM 0RF Referrals: Migue Maher MD [Primary Care Provider] - Coding Level of Care Code ED Broaching Machine Repairer for Chg Fwd Exam Comprehensive
[2021-10-16 12:33] LABS: Basophils % 0.5 %; Eosinophils # 0.2 10^3/uL (0.0-0.8); Eosinophils % 2.2 %; Hemoglobin 12.4 g/dL (11.5-15.3); Lymphocytes # 2.2 10^3/uL (0.8-4.8); Lymphocytes % 25.9 %; Mean Corpuscular HGB Conc 32.6 g/dL (30.0-36.0); Mean Corpuscular Hemoglobin 27.8 pg (28.0-34.0); Mean Corpuscular Volume 85.2 fl (81-99); Mean Platelet Volume 10.2 fL (7.4-10.4); Monocytes # 0.6 10^3/uL (0.2-0.9); Monocytes % 6.7 %; Neutrophils # 5.35 10^3/uL (1.8-7.7); Neutrophils % 64.2 %; Nucleated Red Blood Cells % 0 %; Platelet Count 305 10^3/cmm (130-400); Red Blood Count 4.46 10^6/uL (4.1-5.3); Red Cell Distribution Width 14.1 % (12.1-15.1); White Blood Count 8.3 10^3/uL (4.0-10.0)
[2021-10-16] MEDS: hyDRALAzine 20 mg/mL INJ 1 mL IVP (12:38)
[2021-10-16] MEDS: cloNIDine 0.1 mg Tablet PO (12:38)
[2021-10-16] MEDS: amlodipine 10 mg Tablet PO (12:38)
[2021-10-16 12:50] LABS: Troponin(5th) Baseline 7 ng/L (0-10)
[2021-10-16 12:57] LABS: Alanine Aminotransferase 14 U/L (0-33); Albumin Level 4.4 g/dL (3.5-5.2); Alkaline Phosphatase 97 IU/L (35-105); Anion Gap 19.2 (5-19); Aspartate Amino Transferase 16 U/L (0-32); Blood Urea Nitrogen 17 mg/dL (8-23); Calcium 9.7 mg/dL (8.5-10.5); Carbon Dioxide 22 mmol/L (22-29); Chloride 98 mmol/L (98-107); Globulin 2.9 g/dL (1.3-4.6); Glucose 99 mg/dL (65-115); Osmolality Calculated 282 mOsm/kg (285-295); Potassium 4.2 mmol/L (3.5-5.1); Sodium 135 mmol/L (136-145); Total Bilirubin 0.7 mg/dL (0.15-1.2); Total Protein 7.3 g/dL (6.6-8.7)
--- NOTE | 2021-10-16 13:11 | XR_ITS ---
WS: [id number] Exam: XR shoulder RT min 2V* [id number] Date/Time of Exam: 10/16/2021 1:34 PM Reason For Exam: pain No acute fracture or dislocation. Soft tissue calcification along the humeral head may indicate calci fic bursitis. Minimal degenerative change at the AC joint. XR/XR shoulder RT min 2V* [id number] IMPRESSION: 1. No fracture or dislocation. Other minor findings as above.
--- NOTE | 2021-10-16 13:11 | XR_ITS ---
WS: [email or web address] Exam: XR ribs RT mn 3V w CXR1V [id number] Date/Time of Exam: 10/16/2021 1:34 PM Reason For Exam: fall Compared to chest x-ray 07/23/2020. Probable nondisplaced fracture of the posterior right 10th rib. Old fracture of the lateral aspect of the right sixth rib. No pneumothorax. No pleural or pulmonary reactive changes. The lungs are clear and fully expanded. Cardiomediastinal structures are unremarkable for technique. No pleural effusions . XR/XR ribs RT mn 3V w CXR1V [id number] IMPRESSION: 1. Probable nondisplaced fracture the posterior right 10th rib. Old right sixth rib fracture. 2. No pneumothorax.
[2021-10-16 14:16] LABS: Urine Appearance Cloudy (CLEAR); Urine Color Yellow (Yellow); pH Urine 7 (5-7)
[2021-10-16 14:17] LABS: Add Urine Culture? No; Add Urine Microscopic? YES; Bacteria Urine 1+ /hpf; Bilirubin Urine Neg (Negative); Blood Urine Neg (Negative); Glucose Urine UA Norm (Normal); Ketones Urine 1+ (Negative); Leukocyte Esterase Urine 2+ (Negative); Nitrate Urine Negative (Negative); Protein Urine Neg (Negative); Squamous Epithelial Cell Urine 80-100 /hpf (0-5); Urobilinogen Urine Norm (Negative); WBC Urine 25-40 /hpf (0-5)
--- NOTE | 2021-10-16 14:22 | ECG_ITS ---
[facility] Test Date: 2021-10-16 Pat Name: Cheyanne Fonseca Department: Room: Gender: Female Freelance Data Entry: : 1945 Requested By: Steven Benitez Order Number: [id number] Hector MD: Basilia Hare M.D. Measurements Intervals [place] Rate: 72 P: 25 IL: 156 QRS: 36 QRSD: 102 T: -5 QT: 403 QTc: 444 Interpretive Statements SINUS RHYTHM ST DEVIATION AND MODERATE T-WAVE ABNORMALITY, CONSIDER ANTEROLATERAL ISCHEMIA [-0.1+ mV T-WAVE IN V3-V6] Compared to ECG 10/16/2021 12:33:02 Possible ischemia now present T-wave abnormality still present Electronically Signed On 10-16-2021 17:44:18 BREAKER MECHANIC by Basilia Hare M.D. [id number]
--- NOTE | 2021-10-16 14:31 | PC.NURSE ---
Called pt's son, Migue at her request to update him on her condition. Pt is home w her son. The has severe dementia & Mrs. Fonseca is concerned about his wellbeing w her being gone.
--- NOTE | 2021-10-16 15:09 | USCV_ITS ---
Cheyanne Fonseca Age: 76 Gender: F : 1945 Exam Date: 10/16/2021 16:13 Ordering Phys: Juan Flower MD Technologist: PAIGE Exam Location: [facility] [place] Indication: Syncope BP: 110 / 50 HR: 67 Rhythm: Sinus Technical Quality: Adequate MEASUREMENTS (Male / Female) Normal Values 2D ECHO LV Diastolic Diameter PLAX 5.1 cm 4.2 - 5.9 / 3.9 - 5.3 cm LV Systolic Diameter PLAX 3.1 cm IVS Diastolic Thickness 1.0 cm 0.6 - 1.0 / 0.6 - 0.9 cm IVS Systolic Thickness 1.5 cm LVPW Diastolic Thickness 0.8 cm 0.6 - 1.0 / 0.6 - 0.9 cm LVPW Systolic Thickness 1.4 cm LVOT Diameter 2.0 cm LV Ejection Fraction 2D Teich 68.9 % LV Ejection Fraction MOD 2C 78.7 % LV Ejection Fraction 2C AL 78.6 % LA Diameter 3.1 cm Aorta at Sinotubular Diameter 2.1 cm M-MODE Aortic Annulus Diameter 3.2 cm LA Ao Ratio MM 1.1 MV E Point Septal Separation 0.5 cm DOPPLER AV Peak Velocity 140.0 cm/s LVOT Peak Velocity 111.0 cm/s AV Area Cont Eq vti 2.7 cm squared AV Area Cont Eq pk 2.5 cm squared MV Area PHT 3.7 cm squared Mitral E to A Ratio 0.8 MV E' Velocity 51.0 cm/s Mitral E to MV E' Ratio 16.3 Mitral E to LV E' Lateral Ratio 14.3 Mitral E to LV E' Septal Ratio 19.3 TR Peak Velocity 392.7 cm/s TR Peak Gradient 61.7 mmHg TV Peak E Velocity 56.0 cm/s Right Atrial Pressure 3.0 mmHg Pulmonary Artery Systolic Pressu 64.7 mmHg PV Peak Velocity 87.0 cm/s RV Acceleration Time 0.1 s RV Ejection Time 0.3 s RV AcT/ET 0.4 FINDINGS Left Ventricle Normal left ventricular size, systolic function and wall thickness, with no diagnostic regional wall motion abnormalities. Left ventricular ejection fraction is estimated at 75 %. Grade II diastolic dysfunction, moderately elevated filling pressures. Right Ventricle Normal right ventricular size and systolic function. Pulmonary artery pressure estimated at 26 mmHg. Right Atrium Normal right atrial size. Left Atrium Mildly increased left atrial size. Mitral Valve Structurally normal mitral valve. No mitral valve stenosis. No significant mitral valve regurgitation. Aortic Valve Structurally normal trileaflet aortic valve. No aortic valve stenosis. No aortic valve regurgitation. Tricuspid Valve Structurally normal tricuspid valve. Trace tricuspid valve regurgitation. Pulmonic Valve Pulmonic valve not well visualized. No pulmonary valve stenosis. No pulmonary valve regurgitation. Pericardium No pericardial effusion. Aorta Normal size aortic root and proximal ascending aorta. CONCLUSIONS 1. Normal left ventricular size, systolic function and wall thickness, with no diagnostic regional wall motion abnormalities. Left ventricular ejection fraction is estimated at 75 %. Grade II diastolic dysfunction, moderately elevated filling pressures. 2. Normal right ventricular size and systolic function. 3. Normal pulmonary artery pressure. 4. No significant valvular abnormality. 5. When compared to previous echocardiogram dated 02/23/2019, there may not have been any significant change. Basilia Hare MD (Electronically Signed) Final Date: 17 October 2021 11:19 S
--- NOTE | 2021-10-16 15:12 | ECG_ITS ---
[facility] Test Date: 2021-10-17 Pat Name: Cheyanne Fonseca Department: Room: 105 Gender: Female Block Out Machine Operator: Sandra Cindy : 1945 Requested By: Juan Flower Order Number: [id number] Hector MD: Sophie Bales M.D. Interpretive Statements NAME OF STUDY: LEXISCAN SESTAMIBI STRESS TEST INDICATION: Syncope, PROCEDURE: At the baseline, the EKG revealed sinus bradycardia with an diffuse nonspecific ST-T changes.. The baseline blood pressure was 107/60 mm Hg with a heart rate of 49 beats/min. Lexiscan was infused over a period of 20 seconds. A total of 0.4 milligrams of Lexiscan was infused. The stress phase was continued for a total of 5 minutes. Heart rate at the end of the stress phase was 37 with a blood pressure 166/48. The EKG at the peak infusion revealed no significant changes. Sestamibi was injected 20 seconds after the Lexiscan infusion. Blood pressure at the end of the recovery phase was 124/55 with a heart rate of 54 per minute. CONCLUSION: 1. No significant EKG changes with the LexiScan infusion 2. No LexiScan induced chest pain or cardiac arrhythmia 3. Normal blood pressure and heart rate response 4. Sestamibi/sestamibi perfusion scan pending; see separate report. Electronically Signed On 10-19-2021 11:05:28 CAR WASH ATTENDANT by Sophie Bales M.D. [id number]
--- NOTE | 2021-10-16 15:19 | P.HP_ITS ---
Providers/Chief Complaint Primary Care Provider: Migue Maher MD Chief Complaint: STOKE LIKE SYMPTOMS, L SIDE WEAKNESS, HEADACHE History of Present Illness Cheyanne Fonseca is a 76 year old female with a past medical history of CVA, hypertension, hyperlipidemia, depression who presents [facility] for syncopal and collapse. According to patient, she has been doing well, no recent illness, recent hospitalization, no chest pain, no palpitations, no shortness of breath, no calf pain, no calf swelling, no hemoptysis, no recent surgery, recent immobility, she does have bilateral extremity edema which is chronic for her. Today at noon she was picking up her 's prescription, [employer], when she was walking down the first I will she suddenly collapsed. She passed out, was on the floor for roughly 2 minutes, no witnessed seizure-like episodes, is not clear if anybody checked her pulse, or checked her breathing. But she regained consciousness after about 2 minutes was a bit groggy, denies a prior history of passing out, no cardiovascular history, does report a history of a abnormal heart rhythm. Work-up in the emergency room she was found to have right 10th rib fracture. Soft tissue hematoma and contusion over the right zygomatic arch Review of Systems Const: Denies: fever(s), chills, fatigue or malaise Eyes: Denies: change in vision or blurry vision ENMT: Denies: nasal congestion Card: Reports: syncope; Denies: chest pain, palpitations, irregular heart rhythm or lightheadedness Resp: Denies: dyspnea, productive cough, non-productive cough or wheezing GI: Denies: abdominal pain, nausea, vomiting, hematemesis, diarrhea, constipation, hematochezia or melena : Denies: flank pain, dysuria or urinary frequency Musc: Denies: neck pain or back pain Skin/Breast: Denies: rash Neuro: Denies: headache(s), dizziness or vertigo Psych: Denies: anxiety or depression Endo: Denies: polyuria or polydipsia Medications/Allergies Home Medications Medication Instructions Recorded Confirmed Last Taken Type bupropion HCl 150 mg tablet,12 hr 150 mg PO BID 07/23/20 10/16/21 10/16/21 07:00 History sustained-release lorazepam 0.5 mg tablet 0.5 mg PO BID PRN 07/23/20 10/16/21 Unknown History clonidine HCl 0.1 mg tablet 0.1 mg PO QID PRN 08/01/20 10/16/21 Unknown History propranolol 40 mg tablet See Rx Instructions .ROUTE .COMPLEX 09/05/20 10/16/21 10/16/21 07:00 History magnesium oxide 400 mg PO DAILY tab 10/03/21 10/16/21 Unknown History ascorbic acid (vitamin C) 500 mg 500 mg PO DAILY 10/16/21 10/16/21 Unknown History tablet (Vitamin C) atorvastatin 40 mg tablet 40 mg PO BEDTIME 10/16/21 10/16/21 10/15/21 History cholecalciferol (vitamin D3) 50 50 mcg PO DAILY 10/16/21 10/16/21 Unknown Hist ory mcg (2,000 unit) tablet (Vitamin D3) clopidogrel 75 mg tablet 75 mg PO QAM 10/16/21 10/16/21 10/16/21 07:00 History hydrochlorothiazide 25 mg tablet 50 mg PO QAM 10/16/21 10/16/21 10/16/21 07:00 History potassium chloride 8 mEq 8 meq PO QAM 10/16/21 10/16/21 10/16/21 07:00 History capsule,extended release valsartan 160 mg tablet 160 mg PO QAM 10/16/21 10/16/21 10/16/21 07:00 History Allergies Allergy/AdvReac Type Severity Reaction Status Date / Time aspirin Allergy Unknown Unknown Verified 10/16/21 14:46 Sulfa (Sulfonamide Allergy Unknown Unknown Verified 10/16/21 14:46 Antibiotics) contrast dye Allergy Unknown Unknown Uncoded 10/03/21 10:25 PFSH Acute PFSH: Medical History CVA (cerebral vascular accident) Depression Dyslipidemia Hypertension Family History Other CAD (coronary artery disease) Social History Smoking and tobacco status: former smoker Alcohol intake: never Vitals/I&O/Wt Last Vital Signs Pulse 61 10/16/21 14:45 Resp 18 10/16/21 14:45 BP 136/81 10/16/21 14:45 Pulse Ox 96 10/16/21 14:45 Weight last 48 hrs Weight 83.007 kg Physical Exam Const: COMMON NORMALS: no acute distress and patient oriented x3 GENERAL APPEARANCE: cooperative, well kempt and well developed HENMT: COMMON NORMALS: normocephalic and Normal external nose present HEAD & SCALP: normocephalic FACE & SINUS: normal facial exam NOSE: Normal external nose present Eye: COMMON NORMALS: Equal, round and reactive pupils present, EOMs intact bi laterally, conjunctivae normal and no scleral icterus PUPIL: Yes Equal, round and reactive pupils present Neck/C-Spine: COMMON NORMALS: full ROM, no lymphadenopathy, no JVD and Thyroid normal THYROID: Thyroid normal Lymph: LYMPHATIC: no lymphadenopathy noted Chest: COMMONS NORMALS: normal inspection of the chest Resp: COMMON NORMALS: normal respiratory effort, No retractions, No use of accessory muscles and clear to auscultation bilaterally AUSCULTATION: clear to auscultation bilaterally Cardio: COMMON NORMALS: regular rate, regular rhythm, S1 normal heart sound present, S2 normal heart sound present, No murmurs present (Cardio) and Peripher al pulses 2+ throughout RATE: regular rate RHYTHM: regular rhythm HEART SOUNDS: S1 normal heart sound present and S2 normal heart sound present PERIPHERAL PULSES: Peripheral pulses 2+ throughout GI: COMMON NORMALS: Normal to inspection, nondistended, normoactive bowel sounds present, Soft to palpation, non-tender and No hepatosplenomegaly present PALPATION: Yes Soft to palpation and Yes No hepatosplenomegaly present : COMMON NORMALS: Yes no CVA tenderness Extremity: COMMON NORMALS: normal to inspection, full ROM, capillary refill normal and no pedal edema Neuro: COMMON NORMALS: patient oriented x3, CN's II-XII intact bilaterally, moves all extremities, no focal motor deficits and no sensory deficits noted Psych: COMMON NORMALS: mental status grossly normal, Normal thought process pr esent, cooperative and speech normal APPEARANCE: Yes well kempt SPEECH: Yes normal speech THOUGHT PROCESS: Normal thought process present Skin: COMMON NORMALS: turgor normal and no jaundice NARRATIVE SKIN EXAM: Multiple bruises, right orbit, right zygomatic arch, right shoulder, right hand GENERAL SKIN EXAM: turgor normal Data : 10/16/21 12:00 02/22/22 12:00 A&P Assessment and plan (1) Syncope and collapse: Status: Acute (2) Leg swelling: Status: Acute (3) Dyslipidemia: Status: Acute (4) Hypertension: Status: Acute (5) CVA (cerebral vascular accident): Status: Acute Qualifiers: CVA mechanism: unspecified Qualified Code(s): I63.9 - Cerebral infarction, unspecified (6) Rib fracture: Status: Acute Plan Syncope and collapse -History is highly concerning for cardiac arrhythmia, leading to syncope and collapse -Admit to CSU -Telemetry monitoring -Serial troponins, serial EKGs -Continue statin, Plavix, aspirin -We will do TSH, magnesium -Orthostatic vital signs -Cardiac echocardiogram -Cardiac stress test -Likely discharge on event monitor -Lovenox for DVT prophylaxis -Full code 10th rib fracture, pain control, PT OT Attestations Medical Necessity Statement*: Patient requires hospitalization, outpatient with observation, for syncope and collapse Coding Level of Care Code Acute Manager [employer] for g Fwd Diagnoses Syncope and collapse R55 Leg swelling M79.89 Dyslipidemia E78.5 Hypertension I10 CVA (cerebral vascular accident) I63.9 CVA mechanism: unspecified Rib fracture S22.39XA
[2021-10-16 15:55] LABS: NT Pro B Type Natriuretic Pept 178 pg/mL (0-450)
[2021-10-16 15:56] LABS: D Dimer 0.67 ug/mIFEU (0-0.59)
[2021-10-16] MEDS: enoxaparin 40 mg/0.4 mL Syringe SUBCUT (16:05)
[2021-10-16] MEDS: pantoprazole 40 mg SDV IVP (16:05)
[2021-10-16] MEDS: ondansetron 2 mg/ML SDV 2 mL 4 MG IVP (16:12)
[2021-10-16 18:00] LABS: Lactic Sepsis W/Reflex 0.8 mmol/L (0.5-2.2)
[2021-10-16] MEDS: propranolol 20 mg Tablet PO (18:15)
[2021-10-16] MEDS: D5-NS 0.45% + KCL 20 mEq 20 MEQ/1,000 ML BAG 100 MEQ IV (18:15)
--- NOTE | 2021-10-16 18:22 | ECG_ITS ---
[facility] Test Date: 2021-10-16 Pat Name: Cheyanne Fonseca Department: Room: 105 Gender: Female Back Stayer: : 1945 Requested By: Steven Benitez Order Number: [id number] Reading MD: Basilia Hare M.D. Measurements Intervals [place] Rate: 73 P: 41 PA: 182 QRS: 12 QRSD: 94 T: 2 QT: 397 QTc: 440 Interpretive Statements SINUS RHYTHM ST DEVIATION AND MODERATE T-WAVE ABNORMALITY, CONSIDER LATERAL ISCHEMIA [-0.1+ mV T-WAVE IN I/aVL/V5/V6] Compared to ECG 10/16/2021 14:48:28 No significant changes Electronically Signed On 10-16-2021 20:43:24 CLINICAL PARTNER by Basilia Hare M.D. [id number]
[2021-10-16 20:08] LABS: Troponin 5 6HR Delta 0 ng/L (0-12)
[2021-10-16] MEDS: acetaminophen 325 mg Tablet 650 MG PO (20:11)
[2021-10-16] MEDS: buPROPion SR (12 HR) 150 mg Tablet PO (20:11)
[2021-10-16] MEDS: atorvastatin 40 mg Tablet PO (20:11)
[2021-10-17] VITALS (18 sets, daily range): BP systolic 115–151; BP diastolic 50–75; PULSE 50–69; RESP 13–23; TEMP 36.4–36.6; O2SAT 94–99
[2021-10-17 04:33] LABS: Basophils # 0.1 10^3/uL (0.0-0.1); Basophils % 0.6 %; Eosinophils # 0.1 10^3/uL (0.0-0.8); Eosinophils % 1.4 %; Hematocrit 31.7 % (37.0-47.0); Hemoglobin 10.7 g/dL (11.5-15.3); Lymphocytes # 2.2 10^3/uL (0.8-4.8); Lymphocytes % 26.8 %; Mean Corpuscular HGB Conc 33.8 g/dL (30.0-36.0); Mean Corpuscular Hemoglobin 27.9 pg (28.0-34.0); Mean Corpuscular Volume 82.6 fl (81-99); Mean Platelet Volume 9.8 fL (7.4-10.4); Monocytes # 0.7 10^3/uL (0.2-0.9); Monocytes % 8.6 %; Neutrophils # 5.03 10^3/uL (1.8-7.7); Neutrophils % 62.4 %; Nucleated Red Blood Cells % 0 %; Platelet Count 235 10^3/cmm (130-400); Red Blood Count 3.84 10^6/uL (4.1-5.3); Red Cell Distribution Width 14.2 % (12.1-15.1); White Blood Count 8.1 10^3/uL (4.0-10.0)
[2021-10-17 04:55] LABS: Alanine Aminotransferase 12 U/L (0-33); Albumin Level 3.6 g/dL (3.5-5.2); Alkaline Phosphatase 79 IU/L (35-105); Anion Gap 12.1 (5-19); Aspartate Amino Transferase 13 U/L (0-32); Blood Urea Nitrogen 17 mg/dL (8-23); Calcium 8.9 mg/dL (8.5-10.5); Carbon Dioxide 26 mmol/L (22-29); Chloride 97 mmol/L (98-107); Globulin 2.7 g/dL (1.3-4.6); Glucose 93 mg/dL (65-115); Osmolality Calculated 275 mOsm/kg (285-295); Phosphorus 3.3 mg/dL (2.5-4.5); Potassium 3.1 mmol/L (3.5-5.1); Sodium 132 mmol/L (136-145); Total Bilirubin 0.8 mg/dL (0.15-1.2); Total Protein 6.3 g/dL (6.6-8.7)
--- NOTE | 2021-10-17 05:23 | PC.NURSE ---
Dr. Flower notified of 8 mEQ Potassium ordered on patient. Doctor Ching notified that we do not carry this dosage.
[2021-10-17] MEDS: hydroCHLOROthiazide 25 mg Tablet 50 MG PO (05:42)
[2021-10-17] MEDS: propranolol 40 mg Tablet PO (05:42)
[2021-10-17] MEDS: losartan 50 mg Tablet PO (05:42)
[2021-10-17] MEDS: clopidogrel 75 mg Tablet PO (05:42)
[2021-10-17] MEDS: acetaminophen 325 mg Tablet 650 MG PO ×2 (05:47→23:50)
--- NOTE | 2021-10-17 06:30 | NMCV_ITS ---
NM erik perf SPECT r/s* [id number] Cheyanne Fonseca Age: 76 Gender: F : 1945 Exam Date: 10/17/2021 07:37 Ordering Phys: Juan Flower MD Technologist: CHADWICK Hudson Exam Location: [facility] Indications: CHEST PAIN STRESS TEST Please see separate stress test report in [facility] for full findings IMAGE PROTOCOL Rest/Stress 1 Lexiscan Day Radiopharmaceutical Dose (mCi) Administration Site Administered by Rest: Tc-99m 10.8 IV CHADWICK Bright Sestamibi Stress:Tc-99m 33.0 IV CHADWICK Bright Sestamibi Rest: 17-Oct-2021 60 Discovery 630 Stress: 17-Oct-2021 30 Discovery 630 0.4mg Lexiscan. Supine position only as patient was unable to lay prone. SPECT RESULTS Technical Quality: Excellent Raw Data Analysis: Normal Image Corrections: No attenuation or motion correction applied Summed Stress Score: 2 Summed Rest Score: 1 Summed Difference Score: 1 PERFUSION FINDINGS A small area of slightly decreased tracer uptake was noted in the mid inferolateral region. No significant reversibility was noted in this region. FUNCTIONAL RESULTS (calculated via Gated SPECT) Stress Image LV EF (%): 83 Stress EDV (mL):69 TID: 1.03 Stress ESV (mL):12 FUNCTIONAL FINDINGS: Segmental wall motion analysis revealing no gross wall motion normalities. IMPRESSIONS 1. Myocardial perfusion imaging revealing a small area of slightly decreased tracer uptake in the mid inferolateral region, with no significant reversibility. 2. Normal LV ejection fraction of 83%. 3. LV wall motion analysis revealing no gross wall motion abnormalities. 4. Normal LV volume. No significant coronary ischemia, based on the above findings Dr Sophie Bales MD [facility] (Electronically Signed) Final Date: 17 October 2021 12:42 S
--- NOTE | 2021-10-17 07:02 | PC.NURSE ---
recieved report, reviewed plan of care. assumed care of patient. no needs identified at this time.
[2021-10-17] MEDS: regadenoson 0.4 Mg/5 ml Syringe IVP (08:18)
[2021-10-17] MEDS: aminophylline 25 mg/mL SDV 10 mL IVP (08:42)
--- NOTE | 2021-10-17 08:58 | PC.NURSE ---
pt heart rate dropped to 34 during stress test and passed out. pt given aminophylline after 3 mins of recovery. pt finished recovery stage with heart rate of 54 and bp of 124/55. pt still tired but able to communicate. pt returned to baseline vitals and will finish stress test in ut.
[2021-10-17] MEDS: buPROPion SR (12 HR) 150 mg Tablet PO ×2 (09:50→17:54)
[2021-10-17] MEDS: magnesium oxide 400 mg tablet PO (09:50)
[2021-10-17] MEDS: cholecalciferol (vitamin D3) 1,000 unit Tablet 2000 UNIT PO (09:50)
[2021-10-17] MEDS: ascorbic acid 500 mg Tablet PO (09:50)
[2021-10-17] MEDS: potassium chloride ER 20 mEq Tablet 40 MEQ PO (09:50)
--- NOTE | 2021-10-17 13:47 | PM.DCS ---
Discharge Providers Date of Admission: 10/16/21 15:16 Date of Discharge: October 17, 2021 Attending Provider at Admission: Juan Flower MD Attending Provider at Discharge: Juan Flower MD Primary Care Provider: Migue Maher MD Diagnoses at Discharge Discharge Diagnosis (1) Syncope and collapse: Status: Acute (2) Leg swelling: Status: Acute (3) Dyslipidemia: Status: Acute (4) Hypertension: Status: Acute (5) CVA (cerebral vascular accident): Status: Acute (6) Rib fracture: Status: Acute Reason for Visit Reason for Visit: STOKE LIKE SYMPTOMS, L SIDE WEAKNESS, HEADACHE Hospital Course Hospital Course Cheyanne Fonseca is a 76 year old female with a past medical history of CVA, hypertension, hyperlipidemia, depression who presents [facility] for syncopal and collapse.? Patient was admitted to [facility] syncope and collapse, UA with no significant evidence of UTI, no evidence of significant pneumonia, no evidence of significant electrolyte abnormalities, troponins no significant delta troponin, EKG no acute ST-T wave changes, no significant arrhythmia events, echocardiogram EF of 75%, grade 2 diastolic dysfunction, venous ultrasound negative for DVT, carotid artery ultrasound within normal limits, cardiac stress testing no significant evidence of obstructive CAD. Patient did develop sinus bradycardia with propranolol which possibly could be an etiology. Nonetheless patient symptomatology is concerning for cardiac arrhythmia. I have discharged her on her home statin, Plavix with a follow-up with cardiology as outpatient. She will be discharged on an event monitor for the next 30 days. If she were to have recurrent syncopal episodes go to the emergency room. Physical Exam Const: COMMON NORMALS: no acute distress and patient oriented x3 Resp: COMMON NORMALS: normal respiratory effort, No retractions, No use of accessory muscles and clear to auscultation bilaterally AUSCULTATION: clear to auscultation bilaterally Cardio: COMMON NORMALS: regular rate, regular rhythm, S1 normal heart sound present and S2 normal heart sound present RATE: regular rate RHYTHM: regular rhythm HEART SOUNDS: S1 normal heart sound present and S2 normal heart sound present GI: COMMON NORMALS: Normal to inspection, nondistended, normoactive bowel sounds present, Soft to palpation and non-tender PALPATION: Yes Soft to palpation Extremity: COMMON NORMALS: no pedal edema Neuro: COMMON NORMALS: patient oriented x3 Psych: COMMON NORMALS: mental status grossly normal Discharge Data Studies Completed and Pending Completed Studies During Hospitalization Category Date Time Status CT cervical spin wo con* [id number] Stat Cat Scan 10/16/21 12:[address] facial bones wo con* [id number] Stat Cat Scan 10/16/21 12:[address] head wo con* [id number] Stat Cat Scan 10/16/21 12:22 Completed Sestamibi Stress Test Request Routine Exams 10/16/21 15:12 Draft XR ribs RT mn 3V w CXR1V [id number] Stat Exams 10/16/21 13:11 Completed XR shoulder RT min 2V* [id number] Stat Exams 10/16/21 13:11 Completed NM erik perf SPECT r/s* [id number] Routine Nuc Med 10/17/21 06:30 Completed CV carotid duplex BI* [id number] Routine Ultrasound 10/16/21 Taken CV. echo complete* [id number] Routine Ultrasound 10/16/21 15:09 Completed Pending at discharge Category Date Time Status Complete Blood Count w/Auto AM LABS Lab 10/18/21 04:00 Ordered Complete Blood Count w/Auto AM LABS Lab 10/19/21 04:00 Ordered Comprehensive Metabolic Panel AM LABS Lab 10/18/21 04:00 Ordered Comprehensive Metabolic Panel AM LABS Lab 10/19/21 04:00 Ordered Magnesium AM LABS Lab 10/18/21 04:00 Ordered Magnesium AM LABS Lab 10/19/21 04:00 Ordered Phosphorus AM LABS Lab 10/18/21 04:00 Ordered Phosphorus AM LABS Lab 10/19/21 04:00 [place] [id number] Routine Ultrasound 10/16/21 Taken Radiology Impressions Cervical Spine CT 10/16/21 12:22 IMPRESSION: 1. No acute cervical spine fracture. 2. Scoliosis and degenerative facet joint arthritis. Face CT 10/16/21 12:22 IMPRESSION: 1. No facial bone fracture. 2. Soft tissue contusion centered over the RIGHT face and zygomatic arch. No underlying fracture. Head CT 10/16/21 12:22 IMPRESSION: 1. No acute intracranial hemorrhage or edema. 2. Mild cerebral atrophy and chronic ischemic disease. 3. Soft tissue hematoma and contusion centered over the RIGHT zygomatic arch. Ribs X-Ray 10/16/21 13:11 IMPRESSION: 1. Probable nondisplaced fracture the posterior right 10th rib. Old right sixth rib fracture. 2. No pneumothorax. Shoulder X-Ray 10/16/21 13:11 IMPRESSION: 1. No fracture or dislocation. Other minor findings as above. Laboratory Results WBC 8.1 10^3/uL (4.0-10.0) 10/17/21 04:06 RBC 3.84 10^6/uL (4.1-5.3) L 10/17/21 04:06 Hgb 10.7 g/dL (11.5-15.3) L 10/17/21 04:06 Hct 31.7 % (37.0-47.0) L 10/17/21 04:06 MCV 82.6 fl (81-99) 10/17/21 04:06 MCH 27.9 pg (28.0-34.0) L 10/17/21 04:06 MCHC 33.8 g/dL (30.0-36.0) 10/17/21 04:06 RDW 14.2 % (12.1-15.1) 10/17/21 04:06 Plt Count 235 10^3/cmm (130-400) 10/17/21 04:06 MPV 9.8 fL (7.4-10.4) 10/17/21 04:06 Neut % (Auto) 62.4 % 10/17/21 04:06 Lymph % (Auto) 26.8 % 10/17/21 04:06 Richardson % (Auto) 8.6 % 10/17/21 04:06 Eos % (Auto) 1.4 % 10/17/21 04:06 Baso % (Auto) 0.6 % 10/17/21 04:06 Neut # (Auto) 5.03 10^3/uL (1.8-7.7) 10/17/21 04:06 Lymph # (Auto) 2.2 10^3/uL (0.8-4.8) 10/17/21 04:06 Richardson # (Auto) 0.7 10^3/uL (0.2-0.9) 10/17/21 04:06 Eos # (Auto) 0.1 10^3/uL (0.0-0.8) 10/17/21 04:06 Baso # (Auto) 0.1 10^3/uL (0.0-0.1) 10/17/21 04:06 Nucleated RBC % (auto) 0 % 10/17/21 04:06 Nucleated RBCs # 0.0 /100WBC 10/17/21 04:06 D-Dimer 0.67 ug/mIFEU (0-0.59) H 10/16/21 12:00 Sodium 132 mmol/L (136-145) L 10/17/21 04:06 Potassium 3.1 mmol/L (3.5-5.1) L 10/17/21 04:06 Chloride 97 mmol/L (98-107) L 10/17/21 04:06 Carbon Dioxide 26 mmol/L (22-29) 10/17/21 04:06 Anion Gap 12.1 (5-19) 10/17/21 04:06 BUN 17 mg/dL (8-23) 10/17/21 04:06 Creatinine 0.6 mg/dL (0.5-0.9) 10/17/21 04:06 GFR Calculation Not Reportable 10/17/21 04:06 Glucose 93 mg/dL (65-115) 10/17/21 04:06 Calculated Osmolality 275 mOsm/kg (285-295) L 10/17/21 04:06 Lactic Acid 0.8 mmol/L (0.5-2.2) 10/16/21 Unknown Calcium 8.9 mg/dL (8.5-10.5) 10/17/21 04:06 Phosphorus 3.3 mg/dL (2.5-4.5) 10/17/21 04:06 Magnesium 2.0 mg/dL (1.7-2.3) 10/17/21 04:06 Total Bilirubin 0.8 mg/dL (0.15-1.2) 10/17/21 04:06 AST 13 U/L (0-32) 10/17/21 04:06 ALT 12 U/L (0-33) 10/17/21 04:06 Alkaline Phosphatase 79 IU/L (35-105) 10/17/21 04:06 Troponin T Baseline 7 ng/L (0-10) 10/16/21 12:00 Troponin T 120 Minute 6.00 ng/L (0-10) 10/16/21 14:00 Delta Troponin T -1.0 ABS# (0-10) L 10/16/21 14:00 Troponin T Hi Sens 6Hr 6.00 ng/L (0-10) 10/16/21 18:28 Troponin T Hi Sens 6Hr Delta 0 ng/L (0-12) 10/16/21 18:28 NT-Pro-B Natriuret Pep 178 pg/mL (0-450) 10/16/21 12:00 Total Protein 6.3 g/dL (6.6-8.7) L 10/17/21 04:06 Albumin 3.6 g/dL (3.5-5.2) 10/17/21 04:06 Globulin 2.7 g/dL (1.3-4.6) 10/17/21 04:06 TSH 1.20 uIU/mL (0.27-4.20) 10/16/21 12:00 Urine Color Yellow (Yellow) 10/16/21 13:42 Urine Appearance Cloudy (CLEAR) 10/16/21 13:42 Urine pH 7 (5-7) 10/16/21 13:42 Ur Specific Pettigrew 1.010 (1.005-1.030) 10/16/21 13:42 Urine Protein Neg (Negative) 10/16/21 13:42 Urine Glucose (UA) Norm (Normal) 10/16/21 13:42 Urine Ketones 1+ (Negative) H 10/16/21 13:42 Urine Blood Neg (Negative) 10/16/21 13:42 Urine Nitrate Negative (Negative) 10/16/21 13:42 Urine Bilirubin Neg (Negative) 10/16/21 13:42 Urine Urobilinogen Norm mg/dL (Negative) 10/16/21 13:42 Ur Leukocyte Esterase 2+ (Negative) H 10/16/21 13:42 Urine RBC None /hpf (0-2) 10/16/21 13:42 Urine WBC 25-40 /hpf (0-5) H 10/16/21 13:42 Ur Squamous Epith Cells 80-100 /hpf (0-5) H 10/16/21 13:42 Amorphous Sediment Not Reportable 10/16/21 13:42 Urine Bacteria 1+ /hpf (NONE) H 10/16/21 13:42 Vitals Last Vital Signs Temp 97.7 F 10/17/21 04:00 Pulse 60 10/17/21 10:00 Resp 17 10/17/21 10:00 BP 151/52 10/17/21 10:00 Pulse Ox 96 10/17/21 10:00 Discharge Plan Discharge Patient Disposition: Home Condition: Stable Prescriptions: New hydrocodone-acetaminophen 5-325 mg tablet 1 tab PO BID PRN (Reason: pain) 7 Days Qty: 14 0RF Continued magnesium oxide 400 mg magnesium tablet 400 mg PO DAILY 0RF bupropion HCl 150 mg tablet sustained-release 12 hr 150 mg PO BID 0RF lorazepam 0.5 mg tablet 0.5 mg PO BID PRN (Reason: Anxiety) 0RF Vitamin C 500 mg Tablet 500 mg PO DAILY 0RF Vitamin D3 50 mcg (2,000 unit) Tablet 50 mcg PO DAILY 0RF atorvastatin 40 mg tablet 40 mg PO BEDTIME 0RF potassium chloride 8 mEq capsule, extended release 8 meq PO QAM 0RF clopidogrel 75 mg tablet 75 mg PO QAM 0RF hydrochlorothiazide 25 mg tablet 50 mg PO QAM 0RF valsartan 160 mg tablet 160 mg PO QAM 0RF Discontinued clonidine HCl 0.1 mg tablet 0.1 mg PO QID PRN (Reason: hypertensive emergency) 0RF propranolol 40 mg tablet See Rx Instructions .ROUTE .COMPLEX 0RF Rx Instructions: 40mg po qam and 20mg po qpm Discharge Orders: Discharge Order (Routine); Ordered 10/17/21 Ordered By: Juan Flower Other Ambulatory Orders: MCT/Event Monitor 30 Days (Routine) Timeframe: 1 Day Facility: [facility] - Location: Radiology Ordered By: Juan Flower Referrals: Sophie Bales MD [Physician] - 1 month Migue Maher MD [Primary Care Provider] - Discharge Diet: Cardiac Discharge Activity: Resume usual activity Patient Instructions: Opioid Safety Activity Restrictions/Additional Instructions: -If you have recurrent syncopal-like episodes go to the emergency room -Please stop taking propanolol -Please follow-up with cardiology in 1 month -Please wear event monitor as prescribed -For your rib fractures please use hydrocodone sparingly -Monitor for fevers, cough, monitor for pneumonia symptoms Discharge Attestations Time Spent in Discharge Care*: less than 30 min Quality Metrics Clinical Quality Measures [ No reported AMI, CVA or VTE this stay] Coding Level of Care Code Acute Chg FW DC note Diagnoses Syncope and collapse R55 Leg swelling M79.89 Dyslipidemia E78.5 Hypertension I10 CVA (cerebral vascular accident) I63.9 Rib fracture S22.39XA
--- NOTE | 2021-10-17 15:32 | P.PN_ITS ---
Subjective Subjective: Patient was seen this morning, she was seen in the cardiac stress lab, denies any fevers, no chills, no nausea, no vomiting, she does report lightheadedness after taking propanolol this morning, nursing's staff report that her heart rates dropped in the 40s when her morning propanolol was given Vitals/I&O/Wt Last Vital Signs Temp 97.7 F 10/17/21 04:00 Pulse 57 L 10/17/21 15:01 Resp 14 10/17/21 15:01 BP 151/52 10/17/21 15:01 Pulse Ox 98 10/17/21 15:01 10/17/21 10/17/21 10/17/21 06:59 14:59 22:59 Intake Total 200 / 290 Balance 200 / 290 Weight last 48 hrs Weight 82.837 kg Weight 83.007 kg Physical Exam Const: COMMON NORMALS: no acute distress and patient oriented x3 Resp: COMMON NORMALS: normal respiratory effort, No retractions, No use of accessory muscles and clear to auscultation bilaterally AUSCULTATION: clear to auscultation bilaterally Cardio: COMMON NORMALS: regular rate, regular rhythm, S1 normal heart sound present and S2 normal heart sound present RATE: regular rate RHYTHM: regular rhythm HEART SOUNDS: S1 normal heart sound present and S2 normal heart sound present GI: COMMON NORMALS: Normal to inspection, nondistended, normoactive bowel sounds present, Soft to palpation, non-tender and No hepatosplenomegaly present PALPATION: Yes Soft to palpation and Yes No hepatosplenomegaly present Neuro: COMMON NORMALS: patient oriented x3 Psych: COMMON NORMALS: mental status grossly normal Skin: NARRATIVE SKIN EXAM: 1+ pitting edema bilateral extremities Data : 10/17/21 04:06 10/17/21 04:06 A&P Assessment and plan (1) Syncope and collapse: Status: Acute (2) Leg swelling: Status: Acute (3) Dyslipidemia: Status: Acute (4) Hypertension: Status: Acute (5) CVA (cerebral vascular accident): Status: Acute (6) Rib fracture: Status: Acute Plan Syncope and collapse -History is highly concerning for cardiac arrhythmia, leading to syncope and collapse -Admit to CSU -Telemetry monitoring -Serial troponins no significant delta troponin, serial EKG no acute ST-T wave changes -Telemetry within normal limits -Continue statin, Plavix, aspirin -We will do TSH 1.2, magnesium 2.0 -Orthostatic vital signs paradoxical -Cardiac echocardiogram ?1. Normal left ventricular size, systolic function and wall ?thickness, with no diagnostic regional wall motion ?abnormalities. Left ventricular ejection fraction is estimated ?at 75 %. Grade II diastolic dysfunction, moderately elevated ?filling pressures.? ?2. Normal right ventricular size and systolic function. ?3. Normal pulmonary artery pressure. ?4. No significant valvular abnormality. ?5. When compared to previous echocardiogram dated 02/23/2019, ?there may not have been any significant change. -Cardiac stress test -1. Myocardial perfusion imaging revealing a small area of slightly decreased ?tracer uptake in the mid inferolateral region, with no significant ?reversibility. ?2. Normal LV ejection fraction of 83%. ?3. LV wall motion analysis revealing no gross wall motion abnormalities. ?4. Normal LV volume. -Likely discharge on event monitor -Lovenox for DVT prophylaxis -Full code 10th rib fracture, pain control, PT OT Attestations Medical Necessity Statement*: Patient requires hospitalization for syncope and collapse Coding Level of Care Code Acute Manager [employer] for g Fwd Diagnoses Syncope and collapse R55 Leg swelling M79.89 Dyslipidemia E78.5 Hypertension I10 CVA (cerebral vascular accident) I63.9 Rib fracture S22.39XA
[2021-10-17] MEDS: enoxaparin 40 mg/0.4 mL Syringe SUBCUT (16:52)
[2021-10-17] MEDS: pantoprazole 40 mg SDV IVP (16:52)
[2021-10-17] MEDS: FUROsemide 10 mg/mL SDV 4mL 40 MG IVP (16:53)
[2021-10-17] MEDS: potassium chloride ER 20 mEq Tablet PO (16:53)
[2021-10-17] MEDS: atorvastatin 40 mg Tablet PO (20:31)
[2021-10-18] VITALS: BP 151/62; PULSE 58; RESP 11; TEMP 36.7; O2SAT 95
[2021-10-18 04:15] LABS: Basophils % 0.4 %; Eosinophils # 0.1 10^3/uL (0.0-0.8); Eosinophils % 1.4 %; Hematocrit 33.1 % (37.0-47.0); Hemoglobin 11.1 g/dL (11.5-15.3); Lymphocytes # 1.9 10^3/uL (0.8-4.8); Lymphocytes % 26.4 %; Mean Corpuscular HGB Conc 33.5 g/dL (30.0-36.0); Mean Corpuscular Hemoglobin 27.6 pg (28.0-34.0); Mean Corpuscular Volume 82.3 fl (81-99); Monocytes # 0.6 10^3/uL (0.2-0.9); Monocytes % 7.7 %; Neutrophils # 4.65 10^3/uL (1.8-7.7); Neutrophils % 63.8 %; Nucleated Red Blood Cells % 0 %; Platelet Count 239 10^3/cmm (130-400); Red Blood Count 4.02 10^6/uL (4.1-5.3); Red Cell Distribution Width 13.9 % (12.1-15.1); White Blood Count 7.3 10^3/uL (4.0-10.0)
[2021-10-18 04:34] LABS: Alanine Aminotransferase 11 U/L (0-33); Albumin Level 3.9 g/dL (3.5-5.2); Alkaline Phosphatase 81 IU/L (35-105); Anion Gap 11.4 (5-19); Aspartate Amino Transferase 14 U/L (0-32); Blood Urea Nitrogen 17 mg/dL (8-23); Calcium 8.9 mg/dL (8.5-10.5); Carbon Dioxide 26 mmol/L (22-29); Chloride 97 mmol/L (98-107); Globulin 2.7 g/dL (1.3-4.6); Glucose 119 mg/dL (65-115); Magnesium 1.9 mg/dL (1.7-2.3); Osmolality Calculated 275 mOsm/kg (285-295); Phosphorus 2.3 mg/dL (2.5-4.5); Potassium 3.4 mmol/L (3.5-5.1); Sodium 131 mmol/L (136-145); Total Bilirubin 0.6 mg/dL (0.15-1.2); Total Protein 6.6 g/dL (6.6-8.7)
[2021-10-18] MEDS: losartan 50 mg Tablet PO (05:32)
[2021-10-18] MEDS: hydroCHLOROthiazide 25 mg Tablet 50 MG PO (05:32)
[2021-10-18] MEDS: clopidogrel 75 mg Tablet PO (05:32)
[2021-10-18 06:00] VITALS: PULSE 58
[2021-10-18 06:24] VITALS: BP 150/62; PULSE 58; RESP 13; TEMP 36.8; O2SAT 95
[2021-10-18 08:00] VITALS: BP 174/74; PULSE 69; RESP 18; TEMP 36.7; O2SAT 94
[2021-10-18] MEDS: cholecalciferol (vitamin D3) 1,000 unit Tablet 2000 UNIT PO (09:36)
[2021-10-18] MEDS: hyDRALAzine 25 mg Tablet PO (09:37)
[2021-10-18] MEDS: magnesium oxide 400 mg tablet PO (09:37)
[2021-10-18] MEDS: ascorbic acid 500 mg Tablet PO (09:40)
[2021-10-18] MEDS: buPROPion SR (12 HR) 150 mg Tablet PO (09:43)
--- NOTE | 2021-10-18 10:41 | PM.PN ---
Subjective Subjective: Patient was seen this morning, denies any fevers,, denies chest pain, and no lightheadedness, she is worried about going home given the weather Vitals/I&O/Wt Last Vital Signs Temp 98.2 F 10/18/21 06:24 Pulse 58 L 10/18/21 06:24 Resp 13 10/18/21 06:24 BP 150/62 10/18/21 06:24 Pulse Ox 95 10/18/21 06:24 10/17/21 10/18/21 10/18/21 22:59 06:59 14:59 Intake Total 120 / 120 240 / 360 Output Total 600 / 1000 400 / 1400 Balance -480 / -880 -160 / -1040 Weight last 48 hrs Weight 82.837 kg Weight 83.007 kg Physical Exam Const: COMMON NORMALS: no acute distress and patient oriented x3 Resp: COMMON NORMALS: normal respiratory effort, No retractions, No use of accessory muscles and clear to auscultation bilaterally AUSCULTATION: clear to auscultation bilaterally Cardio: COMMON NORMALS: regular rate, regular rhythm, S1 normal heart sound present and S2 normal heart sound present RATE: regular rate RHYTHM: regular rhythm HEART SOUNDS: S1 normal heart sound present and S2 normal heart sound present GI: COMMON NORMALS: Normal to inspection, nondistended, normoactive bowel sounds present, Soft to palpation and non-tender PALPATION: Yes Soft to palpation Extremity: COMMON NORMALS: no pedal edema Neuro: COMMON NORMALS: patient oriented x3 Data : 10/18/21 03:42 10/18/21 03:42 A&P Assessment and plan (1) Syncope and collapse: Status: Acute (2) Leg swelling: Status: Acute (3) Dyslipidemia: Status: Acute (4) Hypertension: Status: Acute (5) CVA (cerebral vascular accident): Status: Acute (6) Rib fracture: Status: Acute Plan Syncope and collapse -History is highly concerning for cardiac arrhythmia, leading to syncope and collapse -Admit to CSU -Telemetry monitoring -Serial troponins no significant delta troponin, serial EKG no acute ST-T wave changes -Telemetry within normal limits -Continue statin, Plavix, aspirin -We will do TSH 1.2, magnesium 2.0 -Orthostatic vital signs paradoxical -Cardiac echocardiogram ?1. Normal left ventricular size, systolic function and wall ?thickness, with no diagnostic regional wall motion ?abnormalities. Left ventricular ejection fraction is estimated ?at 75 %. Grade II diastolic dysfunction, moderately elevated ?filling pressures.? ?2. Normal right ventricular size and systolic function. ?3. Normal pulmonary artery pressure. ?4. No significant valvular abnormality. ?5. When compared to previous echocardiogram dated 02/23/2019, ?there may not have been any significant change. -Cardiac stress test -1. Myocardial perfusion imaging revealing a small area of slightly decreased ?tracer uptake in the mid inferolateral region, with no significant ?reversibility. ?2. Normal LV ejection fraction of 83%. ?3. LV wall motion analysis revealing no gross wall motion abnormalities. ?4. Normal LV volume. 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
[2021-10-18 10:45] VITALS: BP 161/76; PULSE 81; RESP 18; TEMP 36.6; O2SAT 94
--- NOTE | 2021-10-18 11:34 | PC.NURSE ---
Discharge Note Patient discharged to home via private vehicle accompanied by family member. All lines removed. 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 Mobile pharmacy medications and/or prescriptions provided. Belongings/home medications returned.
== END 2021-10-18 11:00 | disposition home or self-care (01) ==
LOC: ER 16:20 → CSU 16:59
PROVIDERS: Admitting Provider Family Medicine; Emergency Provider Family Medicine; PCP Family Medicine; Visit Provider Family Medicine
DX: R55 Syncope and collapse (principal); M79.89 Other specified soft tissue disorders; E78.5 Hyperlipidemia, unspecified; I10 Essential (primary) hypertension; S22.39XA Fracture of one rib, unspecified side, initial encounter for closed fracture; X58.XXXA Exposure to other specified factors, initial encounter; Z86.73 Personal history of transient ischemic attack (TIA), and cerebral infarction without residual deficits; F32.9 Major depressive disorder, single episode, unspecified; Z87.891 Personal history of nicotine dependence; I65.23 Occlusion and stenosis of bilateral carotid arteries
CPT/HCPCS: 36415; 70450; 70486; 71101; 72125; 73030; 78452; 80053; 81001; 83605; 83735; 83880; 84100; 84443; 84484; 85025; 85378; 93005; 93017; 93306; 93880; 93970; 96365; 96372; 96375; 99285; A9500; C9113; G0378; J0280; J0360; J1650; J1940; J2405; J2785

== ENCOUNTER → 2021-10-30 12:56 | Outpatient (BNVA) | payer MEDICARE, OTHER, SELFPAY | PROVIDERS: PCP Family Medicine; Visit Provider Internal Medicine Cardiovascular Disease | DX: Z53.9 Procedure and treatment not carried out, unspecified reason (principal) | CPT/HCPCS: 93270 ==

== ENCOUNTER 2021-11-09 09:34 | Outpatient (CLI) | payer MEDICARE, OTHER, SELFPAY ==
[2021-11-09 10:14] LABS: Basophils % 0.5 %; Eosinophils # 0.1 10^3/uL (0.0-0.8); Eosinophils % 2.5 %; Hematocrit 33.5 % (37.0-47.0); Lymphocytes # 1.5 10^3/uL (0.8-4.8); Lymphocytes % 27.7 %; Mean Corpuscular HGB Conc 32.8 g/dL (30.0-36.0); Mean Corpuscular Hemoglobin 28.2 pg (28.0-34.0); Mean Corpuscular Volume 85.9 fl (81-99); Mean Platelet Volume 9.2 fL (7.4-10.4); Monocytes # 0.4 10^3/uL (0.2-0.9); Monocytes % 7.9 %; Neutrophils # 3.38 10^3/uL (1.8-7.7); Nucleated Red Blood Cells % 0 %; Platelet Count 264 10^3/cmm (130-400); Red Cell Distribution Width 14.2 % (12.1-15.1); White Blood Count 5.6 10^3/uL (4.0-10.0)
[2021-11-09 10:39] LABS: Anion Gap 14.9 (5-19); Blood Urea Nitrogen 14 mg/dL (8-23); Calcium 9.3 mg/dL (8.5-10.5); Carbon Dioxide 25 mmol/L (22-29); Chloride 99 mmol/L (98-107); Glucose 88 mg/dL (65-115); Osmolality Calculated 280 mOsm/kg (285-295); Potassium 3.9 mmol/L (3.5-5.1); Sodium 135 mmol/L (136-145)
== END 2021-11-09 09:35 | disposition home or self-care (01) ==
LOC: LAB 09:40
PROVIDERS: PCP Family Medicine; Visit Provider Internal Medicine Cardiovascular Disease
DX: E78.5 Hyperlipidemia, unspecified (principal); I48.91 Unspecified atrial fibrillation
CPT/HCPCS: 80048; 85025

== ENCOUNTER → 2021-11-29 14:51 | Outpatient (BNVA) | payer MEDICARE, OTHER, SELFPAY | PROVIDERS: PCP Family Medicine; Visit Provider Internal Medicine Cardiovascular Disease | DX: I48.20 Chronic atrial fibrillation, unspecified (principal); Z79.01 Long term (current) use of anticoagulants; I10 Essential (primary) hypertension; M79.89 Other specified soft tissue disorders; Z87.891 Personal history of nicotine dependence; F32.9 Major depressive disorder, single episode, unspecified; E78.5 Hyperlipidemia, unspecified; Z86.73 Personal history of transient ischemic attack (TIA), and cerebral infarction without residual deficits | CPT/HCPCS: 99214 ==

== ENCOUNTER → 2022-01-14 16:04 | Outpatient (BNVA) | payer MEDICARE, OTHER, SELFPAY | PROVIDERS: PCP Family Medicine; Visit Provider Family Medicine | DX: I48.91 Unspecified atrial fibrillation (principal); F41.9 Anxiety disorder, unspecified; I10 Essential (primary) hypertension | CPT/HCPCS: 80053; 85025 ==

== ENCOUNTER → 2022-02-27 13:01 | Outpatient (BNVA) | payer MEDICARE, OTHER, SELFPAY | PROVIDERS: PCP Family Medicine; Visit Provider Internal Medicine Cardiovascular Disease | DX: Z09 Encounter for follow-up examination after completed treatment for conditions other than malignant neoplasm (principal); I48.20 Chronic atrial fibrillation, unspecified; Z79.01 Long term (current) use of anticoagulants; E78.5 Hyperlipidemia, unspecified; I10 Essential (primary) hypertension; Z86.73 Personal history of transient ischemic attack (TIA), and cerebral infarction without residual deficits; Z87.891 Personal history of nicotine dependence; R42 Dizziness and giddiness | CPT/HCPCS: 99213 ==

== ENCOUNTER → 2022-04-11 10:19 | Outpatient (BNVA) | payer MEDICARE, OTHER, SELFPAY | PROVIDERS: PCP Family Medicine; Visit Provider Family Medicine | DX: M25.551 Pain in right hip (principal); I10 Essential (primary) hypertension; I48.91 Unspecified atrial fibrillation; F32.9 Major depressive disorder, single episode, unspecified | CPT/HCPCS: 80053; 85025 ==

== ENCOUNTER → 2022-05-01 09:18 | Outpatient (BNVA) | payer MEDICARE, OTHER, SELFPAY | PROVIDERS: PCP Family Medicine; Visit Provider Family Medicine | DX: D64.9 Anemia, unspecified (principal); M25.551 Pain in right hip; I10 Essential (primary) hypertension; I48.91 Unspecified atrial fibrillation; E78.5 Hyperlipidemia, unspecified | CPT/HCPCS: 82728; 83010; 83540; 83550; 85025; 85045 ==

== ENCOUNTER → 2022-05-07 13:54 | Outpatient (BNVA) | payer MEDICARE, OTHER, SELFPAY | PROVIDERS: PCP Family Medicine; Visit Provider Nurse Practitioner Family | DX: I48.91 Unspecified atrial fibrillation (principal); R55 Syncope and collapse; Z79.01 Long term (current) use of anticoagulants | CPT/HCPCS: 99214 ==

== ENCOUNTER → 2022-05-14 14:29 | Outpatient (BNVA) | payer MEDICARE, OTHER, SELFPAY | PROVIDERS: PCP Family Medicine; Visit Provider Family Medicine | DX: D64.9 Anemia, unspecified (principal); I10 Essential (primary) hypertension | CPT/HCPCS: 85025 ==

== ENCOUNTER → 2022-06-06 14:12 | Outpatient (BNVA) | payer MEDICARE, OTHER, SELFPAY | PROVIDERS: PCP Family Medicine; Visit Provider Family Medicine | DX: D64.9 Anemia, unspecified (principal); M79.89 Other specified soft tissue disorders; I10 Essential (primary) hypertension; I48.91 Unspecified atrial fibrillation | CPT/HCPCS: 80048; 83880; 85025 ==

== ENCOUNTER → 2022-07-30 12:08 | Outpatient (BNVA) | payer MEDICARE, OTHER, SELFPAY | PROVIDERS: PCP Family Medicine; Visit Provider Internal Medicine Cardiovascular Disease | DX: I10 Essential (primary) hypertension (principal); M25.551 Pain in right hip; I48.91 Unspecified atrial fibrillation; Z79.01 Long term (current) use of anticoagulants; E78.5 Hyperlipidemia, unspecified; F32.9 Major depressive disorder, single episode, unspecified; Z87.891 Personal history of nicotine dependence | CPT/HCPCS: 99213 ==

== ENCOUNTER → 2023-02-03 10:56 | Outpatient (BNVA) | payer MEDICARE, OTHER, SELFPAY | PROVIDERS: PCP Family Medicine; Visit Provider Internal Medicine Cardiovascular Disease | DX: I48.91 Unspecified atrial fibrillation (principal); M79.89 Other specified soft tissue disorders; I10 Essential (primary) hypertension; Z86.73 Personal history of transient ischemic attack (TIA), and cerebral infarction without residual deficits; Z87.891 Personal history of nicotine dependence; Z79.01 Long term (current) use of anticoagulants | CPT/HCPCS: 99214 ==

== ENCOUNTER → 2023-03-18 07:52 | Outpatient (BNVA) | payer MEDICARE, OTHER, SELFPAY | PROVIDERS: PCP Family Medicine; Visit Provider Podiatrist Foot & Ankle Surgery | DX: M76.822 Posterior tibial tendinitis, left leg (principal); M24.572 Contracture, left ankle; R60.9 Edema, unspecified; M19.072 Primary osteoarthritis, left ankle and foot | CPT/HCPCS: 73610; 73630; 99204 ==

== ENCOUNTER → 2023-04-15 08:40 | Outpatient (BNVA) | payer MEDICARE, OTHER, SELFPAY | PROVIDERS: PCP Family Medicine; Visit Provider Podiatrist Foot & Ankle Surgery | DX: M76.822 Posterior tibial tendinitis, left leg (principal); M24.572 Contracture, left ankle; R60.9 Edema, unspecified; M19.072 Primary osteoarthritis, left ankle and foot | CPT/HCPCS: 99213 ==

== ENCOUNTER → 2023-05-06 10:29 | Outpatient (BNVA) | payer MEDICARE, OTHER, SELFPAY | PROVIDERS: PCP Family Medicine; Visit Provider Family Medicine | DX: E78.5 Hyperlipidemia, unspecified (principal); I10 Essential (primary) hypertension; I48.91 Unspecified atrial fibrillation; I63.9 Cerebral infarction, unspecified | CPT/HCPCS: 80053; 80061; 85025 ==

== ENCOUNTER → 2023-06-10 08:43 | Outpatient (BNVA) | payer MEDICARE, OTHER, SELFPAY | PROVIDERS: PCP Family Medicine; Visit Provider Podiatrist Foot & Ankle Surgery | DX: M24.572 Contracture, left ankle; R60.9 Edema, unspecified; M19.072 Primary osteoarthritis, left ankle and foot | CPT/HCPCS: 99213 ==

== ENCOUNTER 2023-07-12 21:37 | Emergency (ER) | payer MEDICARE, OTHER, SELFPAY ==
[2023-07-12 21:41] VITALS: BP 173/80; PULSE 113; RESP 18; TEMP 36.5; O2SAT 98
--- NOTE | 2023-07-12 21:55 | CTR_ITS ---
PROCEDURE INFORMATION: Exam: CT Head Without Contrast Exam date and time: 07/12/2023 10:22 PM Age: 77 years old Clinical indication: Injury or trauma; Blunt trauma (contusions or hematomas); Patient HX: Fall from standing face first onto floor. Swollen upper lip. Currently on eliquis. ; Additional info: Fall, hit face, on thinners TECHNIQUE: Imaging protocol: Computed tomography of the head without contrast. Radiation optimization: All CT scans at this facility use at least one of these dose optimization techniques: automated exposure control; mA and/or kV adjustment per patient size (includes targeted exams where dose is matched to clinical indication); or iterative reconstruction. REPORTING DATA: Count of CT and Cardiac NM exams in prior 12 months: This patient has received 0 known CTs and 0 known cardiac nuclear medicine studies in the 12 months prior to the current study. COMPARISON: CT head wo con* [id number] 10/16/2021 1:06 PM RADIATION DOSE METRICS: Total DLP (mGy-cm): 1100.18 FINDINGS: Brain: No acute intracranial hemorrhage. No territorial region of tenorio-white dedifferentiation. No extra-axial collection. No mass effect or midline shift. Generalized parenchymal volume loss. Mild burden of nonspecific white matter hypoattenuation, likely chronic microvascular ischemic change. Cerebral ventricles: No acute hyrocephalus. Paranasal sinuses: Visualized sinuses are well-aearted. No fluid levels. Mastoid air cells: Visualized mastoid air cells are well aerated. Orbital cavities: No acute orbital abnormality. Bones/joints: No acute calvarial fracture. Soft tissues: No large scalp hematoma. See CT face report. CT/CT head wo con* [id number] IMPRESSION: No acute intracranial hemorrhage or acute calvarial fracture.
--- NOTE | 2023-07-12 21:55 | CTR_ITS ---
PROCEDURE INFORMATION: Exam: CT Maxillofacial Without Contrast Exam date and time: 07/12/2023 10:27 PM Age: 77 years old Clinical indication: Injury or trauma; Blunt trauma (contusions or hematomas); Lip/oral cavity; Patient HX: Fall from standing face first onto floor. Swollen upper lip. Currently on eliquis. ; Additional info: Fall, hit face, abrasions, on thinners TECHNIQUE: Imaging protocol: Computed tomography of the face without contrast. Radiation optimization: All CT scans at this facility use at least one of these dose optimization techniques: automated exposure control; mA and/or kV adjustment per patient size (includes targeted exams where dose is matched to clinical indication); or iterative reconstruction. REPORTING DATA: Count of CT and Cardiac NM exams in prior 12 months: This patient has received 0 known CTs and 0 known cardiac nuclear medicine studies in the 12 months prior to the current study. COMPARISON: CT head wo con* [id number] 07/12/2023 10:22 PM RADIATION DOSE METRICS: Total DLP (mGy-cm): 589.58 FINDINGS: Orbital cavities: Orbits are normal. Globes are unremarkable. Bones/joints: No acute fracture. Paranasal sinuses: Minimal nonobstructive left maxillary sinus mucosal thickening. No fluid levels. Soft tissues: Soft tissue swelling and hematoma overlying the right upper lip/malar soft tissues extending into the right nasomaxillary soft tissues. Dental: Maxillary edentulism. Multiple missing mandibular teeth. 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 CT/CT facial bones wo con* [id number] IMPRESSION: 1. Soft tissue swelling and hematoma overlying the right upper lip/malar soft tissues extending into the right nasomaxillary soft tissues. 2. No acute fracture.
--- NOTE | 2023-07-12 22:27 | XRR_ITS ---
PROCEDURE INFORMATION: Exam: XR Right Femur Exam date and time: 07/12/2023 10:32 PM Age: 77 years old Clinical indication: Injury or trauma; Blunt trauma; Thigh or upper leg; Right; Patient HX: Fall from standing. C/O RT upper leg pain. TECHNIQUE: Imaging protocol: Radiologic exam of the right femur. Views: 2 views. COMPARISON: No relevant prior studies available. FINDINGS: Bones/joints: No acute fracture or dislocation. Decreased osseous mineralization. Mild hip and knee degenerative change. Soft tissues: Unremarkable. XR/XR femur RT min 2V* [id number] IMPRESSION: No acute fracture.
[2023-07-12 22:33] LABS: Basophils % 0.4 %; Eosinophils # 0.2 10^3/uL (0.0-0.8); Eosinophils % 2.5 %; Hematocrit 38.2 % (36-47); Lymphocytes # 1.7 10^3/uL (0.8-4.8); Lymphocytes % 22.1 %; Mean Corpuscular HGB Conc 32.5 g/dL (30-55); Mean Corpuscular Hemoglobin 28.6 pg (27-33); Mean Corpuscular Volume 88.2 fl (85-98); Mean Platelet Volume 9.6 fL (7.4-10.4); Monocytes # 0.5 10^3/uL (0.2-0.9); Monocytes % 6.8 %; Neutrophils # 5.08 10^3/uL (1.8-7.7); Neutrophils % 67.9 %; Nucleated Red Blood Cells % 0 %; Platelet Count 245 10^3/cmm (157-399); Red Blood Count 4.33 10^6/uL (3.85-5.65); Red Cell Distribution Width 13.3 % (12.1-15.1); White Blood Count 7.48 10^3/uL (3.29-11.43)
[2023-07-12 22:50] LABS: INR 1.07 (0.8-1.2)
[2023-07-12 22:51] LABS: Partial Thromboplastin Time 32.9 SECONDS (23.9-36.7)
[2023-07-12 23:12] LABS: Alanine Aminotransferase 12 U/L (0-33); Albumin Level 4.2 g/dL (3.5-5.2); Alkaline Phosphatase 85 U/L (35-105); Anion Gap 13.4 (5-19); Aspartate Amino Transferase 15 U/L (0-32); Blood Urea Nitrogen 21 mg/dL (8-23); Calcium 9.4 mg/dL (8.5-10.5); Carbon Dioxide 24 mmol/L (22-29); Chloride 100 mmol/L (98-107); Globulin 2.9 g/dL (1.3-4.6); Glucose 151 mg/dL (65-115); Osmolality Calculated 284 mOsm/kg (285-295); Potassium 3.4 mmol/L (3.5-5.1); Sodium 134 mmol/L (136-145); Total Bilirubin 0.4 mg/dL (0.15-1.2); Total Protein 7.1 g/dL (6.6-8.7)
[2023-07-13 00:12] VITALS: BP 145/68; PULSE 59; RESP 16; O2SAT 95
--- NOTE | 2023-07-13 01:12 | ED_ITS ---
HPI - Fall General: Chief Complaint: Fall Stated Complaint: fall , facial injury, high bp Time Seen by Provider: 07/13/23 00:04 History of Present Illness: 77-year-old female presenting after fall from standing. She is anticoagulated. She struck her face head and right thigh on the ground. She complains of pain to these areas. Bleeding is controlled at this point. She was able to ambulate following. This was a mechanical fall. She did not lose consciousness. No vomiting. Associated symptoms-after fall: Reports headache(s); Denies abdominal pain, chest pain or neck pain Review of Systems Const: Denies: fever(s) ENMT: Denies: throat pain Card: Denies: chest pain Resp: Denies: dyspnea GI: Denies: abdominal pain or vomiting Musc: Denies: neck pain Neuro: Reports: headache(s) PFS ED PFSH: Medical History Atrial fibrillation with RVR CVA (cerebral vascular accident) Depression Dyslipidemia Hypertension Family History Other CAD (coronary artery disease) Social History Smoking and tobacco/nicotine status: former use of tobacco/nicotine () Alcohol intake: never Substance/Drug Use: never Physical Exam Const: COMMON NORMALS: no acute distress GENERAL APPEARANCE: cooperative an d comfortable HENMT: COMMON NORMALS: external ears normal FACE & SINUS: ecchymosis and edema (maxiallary swelling and erythema with ecchymosis); no laceration NOSE: Epistaxis present bilaterally (no septal hematoma) dried blood present EXTERNAL EAR: Yes external ears normal MOUTH: Normal oral and palatal mucosa present, lip normal and tongue normal Eye: COMMON NORMALS: Equal, round and reactive pupils present, EOMs intact bilaterally and conjunctivae normal CONJUNCTIVA: Yes conjunctivae normal PUPIL: Yes Equal, round and reactive pupils present Neck/C-Spine: GENERAL: Yes trachea midline Chest: COMMONS NORMALS: normal inspection of the chest CHEST: Yes Symmetrical chest wall rise and No tenderness Resp: COMMON NORMALS: normal respiratory effort, No retractions, No use of accessory muscles and clear to auscultation bilaterally AUSCULTATION: clear to auscultation bilaterally Cardio: COMMON NORMALS: regular rate RATE: regular rate GI: COMMON NORMALS: Normal to inspection, nondistended, normoactive bowel sounds present PALPATION: No Tenderness to palpation present (GI) Course Vital Signs: Vital signs: Vital Signs Temperature 97.7 F 07/13/23 01:30 Pulse Rate 59 L 07/13/23 01:30 Respiratory Rate 16 07/13/23 01:30 Blood Pressure 145/68 07/13/23 01:30 Pulse Oximetry 95 07/13/23 01:30 Oxygen Delivery Me thod Room Air 07/12/23 21:41 MDM - Fall Medical Decision Making CTs are negative for fracture. She does have soft tissue swelling and hematoma overlying the right upper lip and in the right nasal maxillary soft tissue. Head CT is negative otherwise. Femur x-ray shows no fracture. She declines pain medication. She will take Tylenol. Lab Data 07/12/23 22:19 07/12/23 22:[address] 07/12/23 21:55 IMPRESSION: 1. Soft tissue swelling and hematoma overlying the right upper lip/malar soft tissues extending into the right nasomaxillary soft tissues. 2. No acute fracture. Head CT 07/12/23 21:55 IMPRESSION: No acute intracranial hemorrhage or acute calvarial fracture. Femur X-Ray 07/12/23 22:27 IMPRESSION: No acute fracture. Laboratory Results WBC 7.48 10^3/uL (3.29-11.43) 07/12/23 22:19 RBC 4.33 10^6/uL (3.85-5.65) 07/12/23 22:19 Hgb 12.40 g/dL (11.27-16.99) 07/12/23 22:19 Hct 38.2 % (36-47) 07/12/23 22:19 MCV 88.2 fl (85-98) 07/12/23 22: MCH 28.6 pg (27-33) 07/12/23 22: MCHC 32.5 g/dL (30-55) 07/12/23 22:19 RDW 13.3 % (12.1-15.1) 07/12/23 22:19 Plt Count 245 10^3/cmm (157-399) 07/12/23 22: MPV 9.6 fL (7.4-10.4) 07/12/23 22:19 Neut % (Auto) 67.9 % 07/12/23 22:19 Lymph % (Auto) 22.1 % 07/12/23 22:19 [place] % (Auto) 6.8 % 07/12/23 22:19 Eos % (Auto) 2.5 % 07/12/23 22:19 Baso % (Auto) 0.4 % 07/12/23 22:19 Neut # (Auto) 5.08 10^3/uL (1.8-7.7) 07/12/23 22:19 Lymph # (Auto) 1.7 10^3/uL (0.8-4.8) 07/12/23 22:19 [place] # (Auto) 0.5 10^3/uL (0.2-0.9) 07/12/23 22:19 Eos # (Auto) 0.2 10^3/uL (0.0-0.8) 07/12/23 22:19 Baso # (Auto) 0.0 10^3/uL (0.0-0.1) 07/12/23 22:19 Nucleated RBC % (auto) 0 % 07/12/23 22: Nucleated RBCs # 0.0 /100WBC 07/12/23 22:19 PT 14.30 SECONDS (12.1-14.9) 07/12/23 22:19 INR 1.07 (0.8-1.2) 07/12/23 22:19 APTT 32.9 SECONDS (23.9-36.7) 07/12/23 22:19 Sodium 134 mmol/L (136-145) L 07/12/23 22:19 Potassium 3.4 mmol/L (3.5-5.1) L 07/12/23 22:19 Chloride 100 mmol/L (98-107) 07/12/23 22:19 Carbon Dioxide 24 mmol/L (22-29) 07/12/23 22:19 Anion Gap 13.4 (5-19) 07/12/23 22:19 BUN 21 mg/dL (8-23) 07/12/23 22:19 Creatinine 0.8 mg/dL (0.5-0.9) 07/12/23 22:19 GFR Calculation Not Reportable 07/12/23 22:19 Glucose 151 mg/dL (65-115) H 07/12/23 22:19 Calculated Osmolality 284 mOsm/kg (285-295) L 07/12/23 22:19 Calcium 9.4 mg/dL (8.5-10.5) 07/12/23 22:19 Total Bilirubin 0.4 mg/dL (0.15-1.2) 07/12/23 22:19 AST 15 U/L (0-32) 07/12/23 22:19 ALT 12 U/L (0-33) 07/12/23 22:19 Alkaline Phosphatase 85 U/L (35-105) 07/12/23 22:19 Total Protein 7.1 g/dL (6.6-8.7) 07/12/23 22:19 Albumin 4.2 g/dL (3.5-5.2) 07/12/23 22:19 Globulin 2.9 g/dL (1.3-4.6) 07/12/23 22:19 All radiology interpretation(s) finalized by discharge Discharge Plan Discharge Patient Disposition: Home Clinical Impression: Contusion of face, Contusion of hip, right Condition: Stable Prescriptions: No Action triamterene-hydrochlorothiazid [Maxzide-25mg] 37.5-25 mg tablet 1 tab PO DAILY Qty: 30 11RF (DME) Gauntlet Style AFO, no substitutions See Rx Instructions .Route .MEDSUPPLY Qty: 1 0RF Rx Instructions: As directed to [place] [facility] [place] acetaminophen 325 mg tablet 325 mg PO QID PRN lorazepam 0.5 mg tablet 0.5 mg PO TID PRN (Reason: Anxiety) Qty: 90 5RF atorvastatin 40 mg tablet 40 mg PO BEDTIME Qty: 90 3RF Eliquis 2.5 mg tablet 2.5 mg PO BID Qty: 180 3RF Hold Instructions: Adverse Reaction valsartan 160 mg tablet 80 mg PO QAM Qty: 45 3RF metoprolol tartrate 25 mg tablet 12.5 mg PO BID Qty: 180 3RF Discharge Orders: Discharge ED (Routine); Ordered 07/13/23 Ordered By: Andres Reaves Referrals: Migue Maher MD [Primary Care Provider] - 4-7 days Patient Instructions: Hip Contusion (ED), Facial Contusion (ED), Opioid Safety, Pain Management Activity Restrictions/Additional Instructions: Return for vomiting, mental status changes, worsening headache, worsening pain otherwise, other concerning symptoms. See your doctor this week. Coding Level of Care Code ED Classified Copy Control Clerk for Rossana Oliver
[2023-07-13] MEDS: acetaminophen 500 mg Tablet 1000 MG PO (01:26)
[2023-07-13 01:30] VITALS: BP 145/68; PULSE 59; RESP 16; TEMP 36.5; O2SAT 95
== END 2023-07-13 01:32 | disposition home or self-care (01) ==
PROVIDERS: Physician Assistant; Emergency Provider Emergency Medicine; PCP Family Medicine
DX: S00.531A Contusion of lip, initial encounter (principal); S70.01XA Contusion of right hip, initial encounter; Z79.01 Long term (current) use of anticoagulants; Z86.73 Personal history of transient ischemic attack (TIA), and cerebral infarction without residual deficits; E78.5 Hyperlipidemia, unspecified; I10 Essential (primary) hypertension; Z87.891 Personal history of nicotine dependence; W18.39XA Other fall on same level, initial encounter
CPT/HCPCS: 36415; 70450; 70486; 73552; 80053; 85025; 85610; 85730; 99284

== ENCOUNTER → 2023-08-04 11:23 | Outpatient (BNVA) | payer MEDICARE, OTHER, SELFPAY | PROVIDERS: PCP Family Medicine; Visit Provider Internal Medicine Cardiovascular Disease | DX: I48.91 Unspecified atrial fibrillation (principal); M79.89 Other specified soft tissue disorders; I10 Essential (primary) hypertension; Z86.73 Personal history of transient ischemic attack (TIA), and cerebral infarction without residual deficits; Z87.891 Personal history of nicotine dependence; Z79.01 Long term (current) use of anticoagulants | CPT/HCPCS: 99214 ==

== ENCOUNTER → 2023-09-03 13:16 | Outpatient (BNVA) | payer MEDICARE, OTHER, SELFPAY | PROVIDERS: PCP Family Medicine; Visit Provider Nurse Practitioner Family | DX: I48.91 Unspecified atrial fibrillation (principal); I10 Essential (primary) hypertension; Z87.891 Personal history of nicotine dependence; Z79.01 Long term (current) use of anticoagulants | CPT/HCPCS: 99214 ==

== ENCOUNTER → 2024-01-12 11:10 | Outpatient (BNVA) | payer MEDICARE, OTHER, SELFPAY | PROVIDERS: PCP Family Medicine; Referring Provider Family Medicine; Visit Provider Internal Medicine Cardiovascular Disease | DX: I48.91 Unspecified atrial fibrillation (principal); R00.2 Palpitations; I49.1 Atrial premature depolarization; I49.3 Ventricular premature depolarization; R00.1 Bradycardia, unspecified | CPT/HCPCS: 93242 ==

== ENCOUNTER → 2024-03-04 11:33 | Outpatient (BNVA) | payer MEDICARE, OTHER, SELFPAY | PROVIDERS: PCP Family Medicine; Visit Provider Internal Medicine Cardiovascular Disease | DX: R06.02 Shortness of breath (principal); R07.9 Chest pain, unspecified; R00.1 Bradycardia, unspecified; I48.91 Unspecified atrial fibrillation; I10 Essential (primary) hypertension; E78.5 Hyperlipidemia, unspecified; M79.89 Other specified soft tissue disorders | CPT/HCPCS: 36415; 80048; 83880; 93005; 99214 ==

== ENCOUNTER 2024-04-12 11:50 | Emergency (ER) | payer MEDICARE, OTHER, SELFPAY ==
[2024-04-12] VITALS (9 sets, daily range): BP systolic 129–217; BP diastolic 57–101; PULSE 62–77; RESP 12–18; TEMP 35.8–36.4; O2SAT 99–100
--- NOTE | 2024-04-12 11:58 | ECG_ITS ---
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 Measurements Intervals [place] Rate: 82 P: 53 VA: 163 QRS: 30 QRSD: 90 T: 47 QT: 386 QTc: 452 Interpretive Statements SINUS RHYTHM WITH OCCASIONAL SUPRAVENTRICULAR PREMATURE COMPLEXES Compared to ECG 03/04/2024 11:36:47 Sinus bradycardia no longer present T-wave abnormality no longer present Electronically Signed On 04-12-2024 14:09:19 CDT by Dennis Garcia M.D. [id number]
--- NOTE | 2024-04-12 12:11 | XRR_ITS ---
PROCEDURE INFORMATION: Exam: XR Chest Exam date and time: 04/12/2024 12:31 PM Age: 78 years old Clinical indication: Shortness of breath; Additional info: SOB TECHNIQUE: Imaging protocol: Radiologic exam of the chest. Views: 1 view. COMPARISON: CR XR ribs RT mn 3V w CXR1V [id number] 10/16/2021 1:18 PM FINDINGS: Lungs: Unremarkable. No consolidation. Pleural spaces: Unremarkable. No pleural effusion. No pneumothorax. Heart/Mediastinum: Unremarkable. No cardiomegaly. Bones/joints: Unremarkable. XR/XR chest 1V portable [id number] IMPRESSION: No acute findings.
--- NOTE | 2024-04-12 12:12 | ED_ITS ---
HPI - Arrhythmia/Palpitations 2 General: Chief Complaint: Shortness of Breath/Dyspnea Stated Complaint: Dr. Chappell sent heart issues Time Seen by Provider: 04/12/24 11:53 Source: patient Mode of arrival: ambulatory Limitations: no limitations History of Present Illness: This patient was referred to the emergency department after she called her primary care doctor this morning. She states for the past several days perhaps as many as 7 to 10 days she has had episodes where she is felt like her heart was skipping or racing and she was concomitantly short of short winded. However the short windedness seems to be more pronounced when she is active and attempts to do walk at a faster pace than normal. Not clear whether that is as recent as the other symptoms or if it has been more chronic in nature. She denies any concomitant chest pain although she states she feels a cramp in her back occasionally but not every time when she has on these episodes. She denies any fevers or chills or cough exposure to illness etc. She has been eating and drinking normally. She denies any concomitant diaphoresis or nausea. She has hypertension and denies any other heart issues although her chart lists atrial fibrillation as problem list item and she also takes a apixaban. MD complaint: palpitations Duration: intermittent Severity: mild Associated symptoms: Deny anxiety, nausea, pre-syncope, syncope or vomiting Related Data Home Medications Medication Instructions Recorded Confirmed acetaminophen 325 mg tablet 325 mg PO QID PRN Pain 02/03/23 04/12/24 metoprolol tartrate 25 mg tablet 12.5 mg PO BID 04/12/24 04/12/24 triamterene 37.5 1 tab PO DAILY 04/12/24 04/12/24 mg-hydrochlorothiazide 25 mg tablet valsartan 40 mg tablet 40 mg PO DAILY 04/12/24 04/12/24 Previous Rx's Medication Instructions Recorded lorazepam 0.5 mg tablet 0.5 mg PO TID PRN Anxiety #90 tabs 09/27/22 Gauntlet Style AFO, no #1 ea 04/15/23 substitutions apixaban 2.5 mg tablet 2.5 mg PO BID #180 tabs 02/03/24 Allergies Allergy/AdvReac Type Severity Reaction Status Date / Time codeine Allergy Severe throat Verified 04/12/24 12:02 swells shellfish derived Allergy Severe ALGY-Anaphy Verified 04/12/24 12:02 laxis alendronate sodium Allergy Intermediate diarrhea Verified 04/12/24 12:02 [From Fosamax] paroxetine [From Paxil] Allergy Intermediate Unknown Verified 04/12/24 12:02 temazepam Allergy Intermediate hives Verified 04/12/24 12:02 aspirin Allergy Unknown Unknown Verified 04/12/24 12:02 Sulfa (Sulfonamide Allergy Unknown Unknown Verified 04/12/24 12:02 Antibiotics) buspirone [From BuSpar] AdvReac Intermediate dizziness Verified 04/12/24 12:02 clonazepam [From Klonopin] AdvReac Intermediate dizziness Verified 04/12/24 12:02 diazepam [From Valium] AdvReac Intermediate hallucinati Verified 04/12/24 12:02 on risperidone [From Risperdal] AdvReac Intermediate unsteady Verified 04/12/24 12:02 tramadol [From Ultram] AdvReac Intermediate raises BP Verified 04/12/24 12:02 venlafaxine [From Effexor] AdvReac Intermediate felt drunk Verified 04/12/24 12:02 contrast dye Allergy Unknown Unknown Uncoded 04/12/24 12:02 Effexor AdvReac Severe [place] drunk Uncoded 04/12/24 12:02 Review of Systems 2 Const: Denies: fever(s) or chills ENMT: Denies: throat pain, nasal discharge or nasal congestion Card: Reports: palpitations, lightheadedness and dyspnea on exertion; Denies: chest pain, syncope or pre-syncope Resp: Denies: productive cough, non-productive cough, wheezing or stridor GI: Denies: nausea, vomiting or diarrhea : Denies: flank pain, difficulty voiding, dysuria, urinary frequency or oliguria Musc: Denies: neck pain, back pain, extremity pain or extremity swelling Skin/Breast: Denies: rash Neuro: Denies: headache(s), numbness in extremities, weakness in extremities or Slurred speech present Psych: Denies: anxiety, depression or mood swings PFSH ED 2 PFSH: Medical History Atrial fibrillation with RVR Dyslipidemia Depression Hypertension CVA (cerebral vascular accident) Family History Other CAD (coronary artery disease) Social History Smoking and tobacco/nicotine status: former use of tobacco/nicotine Alcohol intake: never Substance/Drug Use: never Physical Exam 2 Narrative: EXAM NARRATIVE: The patient is alert and cooperative and appears to be in no acute distress. She answers questions in a goal-directed fashion. Const: COMMON NORMALS: patient oriented x3 GENERAL APPEARANCE: cooperative and comfortable HENMT: COMMON NORMALS: normocephalic, Normal nasal mucous membranes and turbinates present, moist oral mucous membranes and oropharynx normal HEAD & SCALP: normocephalic NOSE: Normal nasal mucous membranes and turbinates present Eye: COMMON NORMALS: Equal, round and reactive pupils present, EOMs intact bilaterally and conjunctivae normal CONJUNCTIVA: Yes conjunctivae normal P UPIL: Yes Equal, round and reactive pupils present Neck/C-Spine: COMMON NORMALS: full ROM, no JVD and No carotid bruits Chest: COMMONS NORMALS: normal inspection of the chest Resp: COMMON NORMALS: normal respiratory effort, No retractions, No use of accessory muscles and clear to auscultation bilaterally AUSCULTATION: clear to auscultation bilaterally Cardio: COMMON NORMALS: no JVD, regular rate, regular rhythm, No murmurs present (Cardio) and Peripheral pulses 2+ throughout RATE: regular rate R HYTHM: regular rhythm PERIPHERAL PULSES: Peripheral pulses 2+ throughout GI: COMMON NORMALS: Normal to inspection, nondistended, normoactive bowel sounds present, Soft to palpation and non-tender PALPATION: Yes Soft to palpation : COMMON NORMALS: Yes no CVA tenderness BLADDER/KIDNEY EXAM: Yes no CVA tenderness Back/Pelvis: COMMON NORMALS: no CVA tenderness, thoracic and lumbar spine normal to inspection and no thoracic nor lumbar tenderness Extremity: COMMON NORMALS: normal to inspection, full ROM, capillary refill normal, no calf tenderness and no pedal edema Neuro: COMMON NORMALS: patient oriented x3, moves all extremities, no focal motor deficits and no sensory deficits noted Skin: COMMON NORMALS: no rashes or lesions noted, no wounds and turgor normal GENERAL SKIN EXAM: no rashes or lesions noted and turgor normal Course 2 Reevaluation(s): Reevaluation #1: The patient was ambulated about the emergency department with pulse oximetry monitoring and noted to have a pulse oximeter that stayed greater than 95% the entire duration of her ambulation during which she was asymptomatic for any symptoms of chest pain shortness of breath etc. Time: 14:16 Vital Signs: Vital signs: Vital Signs Temperature 97.5 F L 04/12/24 12:38 Pulse Rate 71 04/12/24 14:30 Respiratory Rate 12 04/12/24 14:30 Blood Pressure 129/101 04/12/24 14:30 Pulse Oximetry 99 04/12/24 14:30 Oxygen Delivery Me thod Room Air 04/12/24 14:30 MDM - Arrhythmia/Palpitations Medical Decision Making This patient presented to the Emergency Department as noted in the HPI. Unbeknownst to her is that she has an underlying diagnosis of atrial fibrillation. Holter monitor and other studies from the past were reviewed and she is having episodes of A-fib or other short duration arrhythmias which are sometimes symptomatic and sometimes asymptomatic. At this juncture in the emergency department she does not have any evidence of heart failure, uncontrolled atrial fibrillation, suggestion of ACS etc. at this time. Her D- dimer is age-adjusted below her age related cutoff and puts her at low risk for thromboembolic events and given her current antiplatelet agents and other clinical picture does not suggest thromboembolic events either. It would seem from her current presentation that likely she is experiencing episodes of rapid ventricular response which are short in duration and causing her to be symptomatic. She is on metoprolol 12 and half milligrams twice daily I think likely she may need more rate control. I will also broach the topic of electrophysiology evaluation for any other therapy such as ablation etc. with both she and family. She apparently has some short-term memory issues after her stroke which likely was that point in time that her atrial fibrillation was unmask. Will go ahead and increase her metoprolol a slight bit to 25 mg in the morning and 12 and half milligrams at night and also have her see her legal records manager for further evaluation of potential additional medication adjustment perhaps EP referral. This was all discussed with both she and her son who is present who voiced understanding the plan and were appreciative of care. Differential Diagnosis Likely palpitations and artial fibrillation Medical Records I reviewed the patient's medical records. Prior history of atrial fibrillation. Most recent cardiology visit in February of this year and at that time she was in normal sinus rhythm. Lab Data 04/12/24 12:23 04/12/24 12:23 Radiology Impressions Chest X-Ray 04/12/24 12:11 IMPRESSION: No acute findings. Laboratory Results WBC 6.68 10^3/uL (3.29-11.43) 04/12/24 12:23 RBC 4.18 10^6/uL (3.85-5.65) 04/12/24 12:23 Hgb 11.50 g/dL (11.27-16.99) 04/12/24 12:23 Hct 35.4 % (36-47) L 04/12/24 12:23 MCV 84.7 fl (85-98) L 04/12/24 12:23 MCH 27.5 pg (27-33) 04/12/24 12: MCHC 32.5 g/dL (30-55) 04/12/24 12:23 RDW 14.1 % (12.1-15.1) 04/12/24 12:23 Plt Count 254 10^3/cmm (157-399) 04/12/24 12:23 MPV 9.5 fL (7.4-10.4) 04/12/24 12:23 Neut % (Auto) 61.7 % 04/12/24 12:23 Lymph % (Auto) 27.8 % 04/12/24 12: Hart % (Auto) 7.0 % 04/12/24 12:23 Eos % (Auto) 2.5 % 04/12/24 12:23 Baso % (Auto) 0.7 % 04/12/24 12:23 Neut # (Auto) 4.11 10^3/uL (1.8-7.7) 04/12/24 12:23 Lymph # (Auto) 1.9 10^3/uL (0.8-4.8) 04/12/24 12:23 Hart # (Auto) 0.5 10^3/uL (0.2-0.9) 04/12/24 12:23 Eos # (Auto) 0.2 10^3/uL (0.0-0.8) 04/12/24 12:23 Baso # (Auto) 0.1 10^3/uL (0.0-0.1) 04/12/24 12:23 Nucleated RBC % (auto) 0 % 04/12/24 12:23 Nucleated RBCs # 0.0 /100WBC 04/12/24 12:23 D-Dimer 0.79 ug/mLFEU (0-0.59) H 04/12/24 12:23 Sodium 136 mmol/L (136-145) 04/12/24 12:23 Potassium 4.2 mmol/L (3.5-5.1) 04/12/24 12:23 Chloride 101 mmol/L (98-107) 04/12/24 12:23 Carbon Dioxide 22 mmol/L (22-29) 04/12/24 12:23 Anion Gap 17.2 (5-19) 04/12/24 12:23 BUN 16 mg/dL (8-23) 04/12/24 12:23 Creatinine 1.2 mg/dL (0.5-0.9) H 04/12/24 12:23 GFR Calculation Not Reportable 04/12/24 12:23 Glucose 107 mg/dL (65-115) 04/12/24 12:23 Calculated Osmolality 284 mOsm/kg (285-295) L 04/12/24 12:23 Calcium 9.0 mg/dL (8.5-10.5) 04/12/24 12:23 Magnesium 1.9 mg/dL (1.7-2.3) 04/12/24 12:23 Total Bilirubin 0.4 mg/dL (0.15-1.2) 04/12/24 12:23 AST 15 U/L (0-32) 04/12/24 12:23 ALT 8 U/L (0-33) 04/12/24 12:23 Alkaline Phosphatase 80 U/L (35-105) 04/12/24 12:23 Troponin T Baseline 8 ng/L (0-10) 04/12/24 12:23 Troponin T 120 Minute 7.54 ng/L (0-10) 04/12/24 14:07 Delta Troponin T -0.46 ABS# (0-10) L 04/12/24 14:07 NT-Pro-B Natriuret Pep 198 pg/mL (0-450) 04/12/24 12:23 Total Protein 6.8 g/dL (6.6-8.7) 04/12/24 12:23 Albumin 4.1 g/dL (3.5-5.2) 04/12/24 12:23 Globulin 2.7 g/dL (1.3-4.6) 04/12/24 12:23 TSH 1.11 uIU/mL (0.27-4.20) 04/12/24 12:23 All radiology interpretation(s) finalized by discharge EKG Data EKG 1: I personally reviewed and interpreted this EKG as follows: Interpretation: Contemporaneous review of resting EKG reveals ventricular rate of 82 bpm consistent with sinus rhythm. She has normal IA interval, QRS duration, corrected QT interval. Normal axis. Compared with prior tracings there is no interval change. Other EKG comments: Chest X-Ray 04/12/24 12:11 IMPRESSION: No acute findings. Discharge Plan Discharge Patient Disposition: Home Clinical Impression: Chronic atrial fibrillation Condition: Stable Prescriptions: No Action (DME) Gauntlet Style AFO, no substitutions See Rx Instructions .Route .MEDSUPPLY Qty: 1 0RF Rx Instructions: As directed to [facility] acetaminophen 325 mg tablet 325 mg PO QID PRN (Reason: Pain) lorazepam 0.5 mg tablet 0.5 mg PO TID PRN (Reason: Anxiety) Qty: 90 5RF apixaban 2.5 mg tablet 2.5 mg PO BID Qty: 180 3RF Hold Instructions: Adverse Reaction valsartan 40 mg tablet 40 mg PO DAILY triamterene-hydrochlorothiazid 37.5-25 mg tablet 1 tab PO DAILY metoprolol tartrate 25 mg tablet 12.5 mg PO BID Discharge Orders: Discharge ED (Routine); Ordered 04/12/24 Ordered By: Maxime Gusman Referrals: Migue Maher MD [Primary Care Provider] - Discharge Diet: Usual diet Discharge Activity: Increase activity as tolerated Patient Instructions: Opioid Safety, Pain Management Activity Restrictions/Additional Instructions: As we discussed you have no evidence today that suggest you have heart failure heart attack or other concerning condition today. We think that your atrial fibrillation is likely a primary cause of your symptoms. We have recommending in the short-term you take a 25 mg tablet of your metoprolol during the day and continue with your 12-1/2 mg metoprolol at bedtime. We will place a consultation into see Dr. Bales within the next couple weeks to review and discuss the need for additional medications and/or other referrals. If anytime he develops sustained chest pain shortness of breath or other concerning symptoms you are welcome to return to the emergency department. Otherwise continue all your usual medications as previously prescribed. Coding Level of Care Code ED Classification Control Clerk for Rossana Oliver
[2024-04-12 12:39] LABS: Basophils # 0.1 10^3/uL (0.0-0.1); Basophils % 0.7 %; Eosinophils # 0.2 10^3/uL (0.0-0.8); Eosinophils % 2.5 %; Hematocrit 35.4 % (36-47); Lymphocytes # 1.9 10^3/uL (0.8-4.8); Lymphocytes % 27.8 %; Mean Corpuscular HGB Conc 32.5 g/dL (30-55); Mean Corpuscular Hemoglobin 27.5 pg (27-33); Mean Corpuscular Volume 84.7 fl (85-98); Mean Platelet Volume 9.5 fL (7.4-10.4); Monocytes # 0.5 10^3/uL (0.2-0.9); Neutrophils # 4.11 10^3/uL (1.8-7.7); Neutrophils % 61.7 %; Nucleated Red Blood Cells % 0 %; Platelet Count 254 10^3/cmm (157-399); Red Blood Count 4.18 10^6/uL (3.85-5.65); Red Cell Distribution Width 14.1 % (12.1-15.1); White Blood Count 6.68 10^3/uL (3.29-11.43)
[2024-04-12 12:53] LABS: D Dimer 0.79 ug/mLFEU (0-0.59)
[2024-04-12 12:56] LABS: Troponin(5th) Baseline 8 ng/L (0-10)
[2024-04-12 13:08] LABS: Alanine Aminotransferase 8 U/L (0-33); Albumin Level 4.1 g/dL (3.5-5.2); Alkaline Phosphatase 80 U/L (35-105); Anion Gap 17.2 (5-19); Aspartate Amino Transferase 15 U/L (0-32); Blood Urea Nitrogen 16 mg/dL (8-23); Carbon Dioxide 22 mmol/L (22-29); Chloride 101 mmol/L (98-107); Globulin 2.7 g/dL (1.3-4.6); Glucose 107 mg/dL (65-115); Magnesium 1.9 mg/dL (1.7-2.3); NT Pro B Type Natriuretic Pept 198 pg/mL (0-450); Osmolality Calculated 284 mOsm/kg (285-295); Potassium 4.2 mmol/L (3.5-5.1); Sodium 136 mmol/L (136-145); Thyroid Stimulating Hormone 1.11 uIU/mL (0.27-4.20); Total Bilirubin 0.4 mg/dL (0.15-1.2); Total Protein 6.8 g/dL (6.6-8.7)
--- NOTE | 2024-04-12 14:00 | PC.NURSE ---
ambulated pt in hallway, pt walked with steady gait once out of er room. pt O2 stayed averaged 96% RA and Pt HR varied in the 90-98 hr range.
[2024-04-12 14:33] LABS: Troponin 5 2HR 7.54 ng/L (0-10); Troponin 5 2HR Delta -0.46 ABS# (0-10)
--- NOTE | 2024-04-13 08:30 | DCPLANNER ---
Message sent to Cardiology for a follow up appointment -Addison
== END 2024-04-12 14:49 | disposition home or self-care (01) ==
PROVIDERS: Emergency Provider Emergency Medicine; PCP Family Medicine
DX: I48.20 Chronic atrial fibrillation, unspecified (principal); Z87.891 Personal history of nicotine dependence; E78.5 Hyperlipidemia, unspecified; I10 Essential (primary) hypertension; Z86.73 Personal history of transient ischemic attack (TIA), and cerebral infarction without residual deficits
CPT/HCPCS: 36415; 71045; 80053; 83735; 83880; 84443; 84484; 85025; 85378; 93005; 99285

== ENCOUNTER → 2024-04-20 13:38 | Outpatient (BNVA) | payer MEDICARE, OTHER, SELFPAY | PROVIDERS: PCP Family Medicine; Visit Provider Nurse Practitioner Family | DX: I48.20 Chronic atrial fibrillation, unspecified (principal); Z87.891 Personal history of nicotine dependence; Z79.01 Long term (current) use of anticoagulants | CPT/HCPCS: 99214 ==

== ENCOUNTER → 2024-10-08 08:13 | Outpatient (BNVA) | payer MEDICARE, OTHER, SELFPAY | PROVIDERS: PCP Family Medicine; Visit Provider Nurse Practitioner Family | DX: I10 Essential (primary) hypertension (principal); E78.5 Hyperlipidemia, unspecified; I48.20 Chronic atrial fibrillation, unspecified; Z86.73 Personal history of transient ischemic attack (TIA), and cerebral infarction without residual deficits; Z87.891 Personal history of nicotine dependence; Z79.01 Long term (current) use of anticoagulants | CPT/HCPCS: 99214 ==

== ENCOUNTER 2025-03-28 08:51 | Inpatient (IN) | payer MEDICARE, OTHER, SELFPAY ==
[2025-03-28] VITALS (7 sets, daily range): BP systolic 155–200; BP diastolic 74–91; PULSE 71–80; RESP 16–18; TEMP 36.4; O2SAT 95–100
--- NOTE | 2025-03-28 08:57 | CT_ITS ---
WS: [id number] CT HEAD NONCONTRAST HISTORY: SYMPTOMS OF ACUTE STROKE TECHNIQUE: Contiguous axial imaging performed through the brain. Bone and soft tissue windows. Sagittal and coronal reformats reviewed. All CT scans at [facility] use at least one of these dose optimization techniques: automated exposure control; mA and/or kV adjustment per patient size (includes targeted exams where dose is matched to clinical indication); or iterative reconstruction. DLP: 1121.19 mGy COMPARISON: 07/12/2023 No acute intracranial hemorrhage, midline shift or mass effect. Mild diffuse volume loss and small vessel disease. No prior infarct. Ventricles: Ventricles and extra-axial spaces are mildly prominent on the basis of atrophy. Paranasal sinuses: As visualized are clear. Mastoid air cells: Well pneumatized. Calvarium and scalp: Skull is intact with no soft tissue edema or swelling. Moderate atherosclerotic plaque in the distal carotid arteries. Mild plaque in the distal vertebral arteries. CT/CT head thrombolytic 77350 IMPRESSION: 1. No acute intracranial hemorrhage or edema. 2. Mild volume loss and small vessel disease. Notified Steven Ellis DO at 03/28/2025 9:05 AM.
--- OUTSIDE RECORDS SUMMARY | 2025-03-28 08:59 | XMS_ITS | Patient Health Record ---
Author Organization [facility] Address [address] [place], [place] [id number] Care Team Providers Care Knife Glazer Name Role Phone Migue Maher MD Primary Care Provider Unavail nia Jorge MD, Feliciano Lo [phone] Allergies Allergen (clinical drug ingredient) Drug/Non Drug Allergy documented on EMR Reaction Allergy Type Onset Date Status Shellfish shellfish (uncoded) Unknown Allergy Active sulfa (uncoded) Unknown Allergy Acti ve alendronate Fosamax Unknown Drug Allergy Activ e BuSpar Unknown Drug Allergy Active paroxetine Paxil Unknown Drug Allergy Active tramadol Ultram Unknown Drug Allergy Active codeine codeine Unknown Drug Allergy Active aspirin aspirin Unknown Drug Allergy Active temazepam temazepam Unknown Drug Allergy Active duloxetine Cymbalta Unknown Drug Allergy Active Reason For Referral No Information Medications Medication SIG (Take, Route, Frequency, Duration) Notes Start Date End Date Status LORazepam 0.5 mg 1 tab orally Q6H, DC N anxiety Active Vitamin D3 1000 intl units 1 cap orally once a day Active carvedilol 6.25 mg 1 tab orally 2 times a day Active Aleve sodium 220 mg 1 tab orally as directed/needed Active Calcium 600+D 600 mg-200 units 1 tab orally 2 times a day, as directed Active Vitamin C 500 mg 1 tab orally as directed Active Social History Tobacco Use: Social History Observation Description Date Details (start date - stop date) Never Smoker NA - NA Tobacco use: Question Answer Notes : nonsmoker quit in 1980 Problems Problem Type SNOMED Code ICD Code Onset Dates Problem Status W/U Status Risk Notes Problem Sleep dysfunction with sleep stage disturbance (327715054) Dysfunctions associated with sleep stages or arousal from sleep (780.56) Active confirmed Problem Limb pain (28502754) Limb pain (729.5) Active confirmed Problem Low back pain (319643107) Low back pain (724.2) Active confirmed Problem 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) Lumbar (w/out myelopathy) intervertebral disc disorder (722.10) Active confirmed Problem Long-term drug therapy (959467734) LONG-TERM USE MEDS NEC (V58.69) Active confirmed r/o substance abuse Problem Lumbosacral spondylosis without myelopathy (84656524) Lumbosacral spondylosis without myelopathy (721.3) Active confirmed Problem Sacroiliitis (25880621) Sacroiliitis (720.2) Active confirmed Plan Of Treatment No Information Insurance Providers Payer Name Payer Address Payer Phone Subscriber Number Group Number Insured Name Patient Relationship to Insured Coverage Start Date Coverage End Date [employer] Part B Claims Department [address] [address] [place] [address] [id number] Wei orrCheyanne Self - patient is the insured [facility] Claims Dept [address] [place] [address] [id number] Wei orrCheyanne Self - patient is the insured Medical (General) History Medical History History ICD Code Hypertension Back pain Pneumonia (2003) Depression Shingles Osteoporosis Hiatal hernia Eptopic Sciatica Anxiety Surgical History Surgery Date(Month/Year) Cholecystectomy Appendectomy Angiogram Hospitalization History Reason Date(Month/Year) Pneumonia 2003
--- NOTE | 2025-03-28 09:01 | CT_ITS ---
WS: [id number] CT ANGIOGRAM CEREBRAL AND CAROTID ARTERIES HISTORY: Acute CVA TECHNIQUE: CT angiogram is performed of the carotid and cerebral arteries. During arterial injection imaging is obtained from the skull vertex to the aortic arch in 1.25 mm imaging. Coronal and sagittal reformats are submitted. Additional multi planar reformats of the carotid and cerebral arteries are submitted, MIP imaging also reviewed. NASCET criteria utilized. All CT scans at [facility] use at least one of these dose optimization techniques: automated exposure control; mA and/or kV adjustment per patient size (includes targeted exams where dose is matched to clinical indication); or iterative reconstruction. CONTRAST: Omnipaque 350; 100 mL IV. DLP: 384.52 mGy.cm COMPARISON: Noncontrast CT head 03/28/2025 Carotid Angiogram: Right carotid: Common carotid artery: Arises normally from the innominate artery. No significant plaque or stenosis. Internal carotid artery: Focal plaque cervical bifurcation. No high-grade stenosis. Plaque continues into the proximal ICA with stenosis estimated near 50%. External carotid artery: Patent. Left carotid: Common carotid artery: Arises normally from the aorta. No significant plaque or stenosis. Internal carotid artery: Calcified plaque and intimal thickening at the bifurcation. 50% stenosis proximal LEFT ICA. External carotid artery: Patent. Right vertebral artery: Unremarkable. Left vertebral artery: Mildly dominant. No stenosis. Subclavian arteries: Mild atherosclerotic plaque in the subclavian arteries. No high-grade stenosis. Upper thorax: 2 mm noncalcified nodule RIGHT upper lobe. Moderate atherosclerosis aorta. LEFT thyroid nodule. Thyroid gland: LEFT thyroid nodule. Osseous structures: Increase in cervical lordosis. CEREBRAL ANGIOGRAM: Intracranial vertebral arteries: Normal with no significant atherosclerosis. Basilar artery: No significant stenosis or occlusion. No aneurysm. Intracranial Internal carotid arteries: Mild plaque through the carotid bifurcations. No significant stenosis or occlusion. Middle cerebral arteries: Normal. Anterior cerebral arteries and ACOM: Normal. Posterior cerebral arteries and PCOM's: Small caliber RIGHT posterior cerebral artery. Dominant LEFT posterior cerebral artery. Posterior communicating arteries are both identified. Dural venous sinuses are normally enhancing. CT/CT angio headneck* [id number] IMPRESSION: 1. LEFT cervical ICA stenosis 50%. 2. RIGHT cervical ICA stenosis, less than 50%. 3. Moderate calcified plaque in the intracranial carotid arteries but no occlu sions or stenosis. 4. No high-grade stenosis in the [place] or occlusion identified. 5. 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 6. No aneurysms.
[2025-03-28] MEDS: methylPREDNISolone sod succ 40 mg/mL INJ IVP (09:09)
[2025-03-28] MEDS: diphenhydrAMINE 50 mg/mL SDV 1mL IVP (09:09)
[2025-03-28 09:14] LABS: Hematocrit 35.8 % (36-47); Hemoglobin 12.10 g/dL (11.27-16.99); Mean Corpuscular HGB Conc 33.8 g/dL (30-55); Mean Corpuscular Hemoglobin 28.0 pg (27-33); Mean Corpuscular Volume 82.9 fl (85-98); Nucleated Red Blood Cells % 0 %; Platelet Count 145 10^3/cmm (157-399); Red Blood Count 4.32 10^6/uL (3.85-5.65); White Blood Count 3.40 10^3/uL (3.29-11.43)
--- NOTE | 2025-03-28 09:15 | PM.CONSULT ---
Providers/Reason For Consult Consulting Physician/Specialty*: Louis Yuan MD neurology and epilepsy Reason for Consult*: Stroke alert/acute care emergency department room #10 Primary Care Provider: Victorino Chappell MD History of Present Illness History of Present Illness Cheyanne Fonseca is a 79 year old female with a history of atrial fibrillation treated with Eliquis and history of previous CVA. The patient was reported to experience her last known well around 7:30 AM or 8 AM on 03/28/2025. Stroke alert was initiated at 8:46 AM with ETA 10 minutes from [facility] emergency department. NIH stroke score =2 (mild dysarthria =1 and mild left lower facial weakness =1) Point of contact glucose Accu-Chek pending at the time of this dictation Stat noncontrast head CT 03/28/2025 revealed no acute findings and no hemorrhage CT angiogram of the head and neck 03/28/2025 results pending at the time of this dictation Drug allergies: Codeine which resulted in throat swelling Shellfish derivatives which resulted in anaphylaxis Fosamax which resulted in diarrhea Paxil type reaction unknown Temazepam which resulted in hives Aspirin type reaction unknown Sulfonamide antibiotics type reaction unknown Iodinated contrast medium type reaction unknown BuSpar which resulted in dizziness Klonopin which resulted in dizziness Valium which resulted in hallucinations Risperdal which resulted in gait unsteadiness Tramadol which resulted in elevated blood pressure Effexor which made the patient feel drunk Past medical history: Atrial fibrillation treated with Eliquis Hypertension Dyslipidemia Remote stroke Depression Leg swelling Habits: Unknown Family history: Unknown Review of Systems General: Reports: 10 or more systems reviewed and unremarkable except in HPI and below Resp: Reports: dyspnea Medications/Allergies Home Medications ?Medication ?Instructions ?Recorded ?Confirmed ?Last Taken ?Type lorazepam 0.5 mg tablet 0.5 mg PO TID PRN Anxiety #90 tabs 09/27/22 10/08/24 Unknown Rx acetaminophen 325 mg tablet 325 mg PO QID PRN Pain 02/03/23 10/08/24 Unknown History Gauntlet Style AFO, no #1 ea 04/15/23 10/08/24 Unknown Rx substitutions metoprolol tartrate 25 mg tablet 12.5 mg PO BID 04/12/24 10/08/24 04/11/24 History triamterene 37.5 1 tab PO DAILY 04/12/24 10/08/24 04/12/24 History mg-hydrochlorothiazide 25 mg tablet apixaban 2.5 mg tablet 2.5 mg PO BID #180 tabs 02/04/25 Unknown Rx Allergies Allergy/AdvReac Type Severity Reaction Status Date / Time codeine Allergy Severe throat Verified 10/08/24 08:35 swells shellfish derived Allergy Severe ALGY-Anaphy Verified 10/08/24 08:35 laxis alendronate sodium (From Allergy Intermediate diarrhea Verified 10/08/24 08:35 Fosamax) paroxetine (From Paxil) Allergy Intermediate Unknown Verified 10/08/24 08:35 temazepam Allergy Intermediate hives Verified 10/08/24 08:35 aspirin Allergy Unknown Unknown Verified 10/08/24 08:35 Sulfa (Sulfonamide Allergy Unknown Unknown Verified 10/08/24 08:35 Antibiotics) Iodinated Contrast Media Allergy Unknown Unverified 03/28/25 09:17 buspirone (From BuSpar) AdvReac Intermediate dizziness Verified 10/08/24 08:35 clonazepam (From Klonopin) AdvReac Intermediate dizziness Verified 10/08/24 08:35 diazepam (From Valium) AdvReac Intermediate hallucinati Verified 10/08/24 08:35 on risperidone (From Risperdal) AdvReac Intermediate unsteady Verified 10/08/24 08:35 tramadol (From Ultram) AdvReac Intermediate raises BP Verified 10/08/24 08:35 venlafaxine (From Effexor) AdvReac Intermediate felt drunk Verified 10/08/24 08:35 contrast dye Allergy Unknown Unknown Uncoded 10/08/24 08:35 PFSH Acute PFSH: Medical History Atrial fibrillation Atrial fibrillation with RVR Dyslipidemia Depression Hypertension CVA (cerebral vascular accident) Family History Other CAD (coronary artery disease) Social History Smoking and tobacco/nicotine status: former use of tobacco/nicotine Alcohol intake: never Substance/Drug Use: never Physical Exam Narrative: NIH stroke score =2 (mild dysarthria =1 and mild left lower facial weakness =1) Point of contact glucose Accu-Chek pending at the time of this dictation Stat noncontrast head CT 03/28/2025 revealed no acute findings and no hemorrhage CT angiogram of the head and neck 03/28/2025 results pending at the time of this dictation The patient is alert she is still in the CT scanner awaiting premedication for CT angiogram of the head and neck. Patient follows commands. Speech mildly dysarthric. Pupils 3 mm round reactive to light and accommodation. Extraocular movements intact. Visual michel appear to be full via confrontation. Cranial nerves II through XII revealed left lower facial weakness. Other cranial nerves appear to be intact. Motor testing grossly nonfocal. Patient able to lift all extremities against gravity and against resistance. Deep tendon reflex revealed plantar responses bilaterally. Sensory examination was intact to touch. There was no extinction on double sensory stimulation. Throat clear. Lungs clear. Heart regular rhythm and rate. Extremities were negative for cyanosis Data 03/28/25 09:00 03/28/25 09:00 A&P Assessment and plan 1. CVA (cerebral vascular accident): Impression: 1. Right subcortical versus cortical infarction versus transient ischemic attack 03/28/2025 manifested as dysarthria and left lower facial weakness. NIH stroke score =2 Note: Since the patient has a history of atrial fibrillation treated with Eliquis, patient not a candidate for intravenous thrombolytics and no intravenous thrombolytics were administered. Plan: 1. Follow-up point of contact glucose Accu-Chek 2. Agree with CT angiogram of the head and neck to assess for large vessel occlusion as well as to assist in determining if patient is a candidate for thrombectomy 3. Note: Patient reports allergy to aspirin 4. Continue neurochecks and vital signs per NIH stroke protocol 5. Recommend obtaining fasting lipid profile 6. Recommend starting lipid-lowering agent per NIH stroke protocol if no contraindications 7. Recommend obtaining physical therapy, speech therapy and Occupational Therapy consults 8. Stroke education for patient and family members PDMP PDMP Reviewed: Not Reviewed Consult Attestations Medical Necessity Statement: The patient was evaluated by neurology for stroke alert emergency department room #10 Coding Level of Care Code 06231 Diagnoses CVA (cerebral vascular accident) I63.9
[2025-03-28] MEDS: iohexol 350 mg/mL 500 mL Btl (per mL) IV (09:17)
[2025-03-28 09:22] LABS: INR 1.21 (0.8-1.2); Prothrombin Time 16.20 SECONDS (12.1-14.9)
[2025-03-28 09:23] LABS: Partial Thromboplastin Time 29.5 SECONDS (23.9-36.7)
--- NOTE | 2025-03-28 09:24 | W.ED.NEUROSD ---
HPI - Neuro Symptoms/Deficit General: Chief Complaint: ER Hold Stated Complaint: stroke alert Time Seen by Provider: 03/28/25 09:01 History of Present Illness: 79-year-old female presents emergency room from home last known well between 730 and 8:00. She has little bit of a left-sided facial droop as have difficulty with word finding. She is on Eliquis. When she arrived here she is approximately 1-1/2 hours out from onset of symptoms. Associated symptoms: Deny chest pain Related Data Home Medications ?Medication ?Instructions ?Recorded ?Confirmed acetaminophen 325 mg tablet 325 mg PO QID PRN Pain 02/03/23 03/28/25 metoprolol tartrate 25 mg tablet 12.5 mg PO BID 04/12/24 03/28/25 triamterene 37.5 1 tab PO DAILY 04/12/24 03/28/25 mg-hydrochlorothiazide 25 mg tablet cetirizine 10 mg tablet 10 mg PO DAILY PRN allergies 03/28/25 03/28/25 ropinirole 0.25 mg tablet 0.25 mg PO BEDTIME 03/28/25 03/28/25 rosuvastatin 5 mg tablet 5 mg PO DAILY 03/28/25 03/28/25 Previous Rx's ?Medication ?Instructions ?Recorded lorazepam 0.5 mg tablet 0.5 mg PO TID PRN Anxiety #90 tabs 09/27/22 Gauntlet Style AFO, no #1 ea 04/15/23 substitutions apixaban 2.5 mg tablet 2.5 mg PO BID #180 tabs 02/04/25 Allergies Allergy/AdvReac Type Severity Reaction Status Date / Time codeine Allergy Severe throat Verified 03/28/25 11:43 swells shellfish derived Allergy Severe ALGY-Anaphy Verified 03/28/25 11:43 laxis alendronate sodium (From Allergy Intermediate diarrhea Verified 03/28/25 11:43 Fosamax) paroxetine (From Paxil) Allergy Intermediate Unknown Verified 03/28/25 11:43 temazepam Allergy Intermediate hives Verified 03/28/25 11:43 aspirin Allergy Unknown Unknown Verified 03/28/25 11:43 Sulfa (Sulfonamide Allergy Unknown Unknown Verified 03/28/25 11:43 Antibiotics) Iodinated Contrast Media Allergy Unknown Verified 03/28/25 11:43 buspirone (From BuSpar) AdvReac Intermediate dizziness Verified 03/28/25 11:43 clonazepam (From Klonopin) AdvReac Intermediate dizziness Verified 03/28/25 11:43 diazepam (From Valium) AdvReac Intermediate hallucinati Verified 03/28/25 11:43 on risperidone (From Risperdal) AdvReac Intermediate unsteady Verified 03/28/25 11:43 tramadol (From Ultram) AdvReac Intermediate raises BP Verified 03/28/25 11:43 venlafaxine (From Effexor) AdvReac Intermediate felt drunk Verified 03/28/25 11:43 contrast dye Allergy Unknown Unknown Uncoded 03/28/25 10:33 Review of Systems Const: Denies: fever(s) or chills Card: Denies: chest pain Resp: Denies: dyspnea GI: Denies: abdominal pain : Denies: dysuria, urinary frequency or urinary urgency Musc: Denies: neck pain or back pain Skin/Breast: Denies: rash PFSH ED PFSH: Medical History Atrial fibrillation Atrial fibrillation with RVR Dyslipidemia Depression Hypertension CVA (cerebral vascular accident) Family History Other CAD (coronary artery disease) Social History Smoking and tobacco/nicotine status: former use of tobacco/nicotine Alcohol intake: never Substance/Drug Use: never NIH stroke score NIHSS: Level Of Consciousness - 1a: 0 Level Of Consciousness Questions - 1b: Both Correct Level Of Consciousness Commands - 1c: Both Correct Best Gaze - 2: Normal Visual Rodriguez - 3: No Visual Loss Facial Palsy - 4: Minor Paralysis Motor Arm Right - 5: No Drift Motor Arm Left - 5: No Drift Motor Leg Right - 6: No Drift Motor Leg Left - 6: No Drift Limb Ataxia - 7: Absent Sensory - 8: Normal Best Language - 9: No Aphasia Dysarthia - 10: Mild/Moderate Dysarthia Extinction And Inattention - 11: 0 Score: Total Score: 2 Physical Exam Const: GENERAL APPEARANCE: cooperative ORIENTATION/CONSCIOUSNESS: Yes awake, Yes oriented to person, Yes oriented to place and Yes oriented to time HENMT: COMMON NORMALS: normocephalic, atraumatic and hearing grossly normal bilaterally HEAD & SCALP: normocephalic and atraumatic Resp: COMMON NORMALS: normal respiratory effort, No retractions, No use of accessory muscles and clear to auscultation bilaterally AUSCULTATION: clear to auscultation bilaterally Cardio: COMMON NORMALS: regular rate, regular rhythm and No murmurs present (Cardio) RATE: regular rate RHYTHM: regular rhythm GI: COMMON NORMALS: Soft to palpation and No hepatosplenomegaly present AUSCULTATION: Yes normoactive bowel sounds PALPATION: Yes Soft to palpation, No Tenderness to palpation present (GI), No Guarding due to palpation present (GI) and Yes No hepatosplenomegaly present Extremity: COMMON NORMALS: normal to inspection, capillary refill normal, no clubbing, cyanosis or edema, no calf tenderness and no pedal edema Neuro: SENSORIUM/ORIENTATION: Yes oriented to person, Yes oriented to place and Yes oriented to time Skin: COMMON NORMALS: no rashes or lesions noted GENERAL SKIN EXAM: no rashes or lesions noted Course Vital Signs: Vital signs: Vital Signs Temperature 97.5 F L 03/28/25 10:01 Pulse Rate 74 03/28/25 11:53 Respiratory Rate 16 03/28/25 11:53 Blood Pressure 155/86 03/28/25 11:53 Pulse Oximetry 96 03/28/25 11:53 Oxygen Delivery Me thod Room Air 03/28/25 11:53 MDM - Neuro Symptoms/Deficit Medical Decision Making Patient has a stroke score 2 in talking with the EMS crew believe her stroke score is actually 3 in or out but her left arm drift has resolved. Dr. Yuan seen the patient in the ER as well. CTA head and neck are unremarkable. She does not score high enough for thrombolytics additionally she is on oral anticoagulants. Placed on ops for blood pressure control and further evaluation initiated antiplatelet therapy. Patient still has mild facial droop and dysarthria Medical Records I reviewed the patient's medical records. Lab Data I reviewed the patient's lab results. 03/28/25 09:00 03/28/25 09:[address] 03/28/25 08:57 IMPRESSION: 1. No acute intracranial hemorrhage or edema. 2. Mild volume loss and small vessel disease. Notified Steven Ellis DO at 03/28/2025 9:05 AM. Head/Neck CTA 03/28/25 09:01 IMPRESSION: 1. LEFT cervical ICA stenosis 50%. 2. RIGHT cervical ICA stenosis, less than 50%. 3. Moderate calcified plaque in the intracranial carotid arteries but no occlusions or stenosis. 4. No high-grade stenosis in the [place] or occlusion identified. 5. 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 6. No aneurysms. Laboratory Results WBC 3.40 10^3/uL (3.29-11.43) 03/28/25 09:00 RBC 4.32 10^6/uL (3.85-5.65) 03/28/25 09:00 Hgb 12.10 g/dL (11.27-16.99) 03/28/25 09:00 Hct 35.8 % (36-47) L 03/28/25 09:00 MCV 82.9 fl (85-98) L 03/28/25 09:00 MCH 28.0 pg (27-33) 03/28/25 09:00 MCHC 33.8 g/dL (30-55) 03/28/25 09:00 RDW 13.3 % (12.1-15.1) 03/28/25 09:00 Plt Count 145 10^3/cmm (157-399) L 03/28/25 09:00 MPV 9.5 fL (7.4-10.4) 03/28/25 09:00 Neut % (Auto) 59.1 % 03/28/25 09:00 Lymph % (Auto) 27.9 % 03/28/25 09:00 [place] % (Auto) 11.8 % 03/28/25 09:00 Eos % (Auto) 0.3 % 03/28/25 09:00 Baso % (Auto) 0.3 % 03/28/25 09:00 Neut # (Auto) 2.01 10^3/uL (1.8-7.7) 03/28/25 09:00 Lymph # (Auto) 1.0 10^3/uL (0.8-4.8) 03/28/25 09:00 [place] # (Auto) 0.4 10^3/uL (0.2-0.9) 03/28/25 09:00 Eos # (Auto) 0.0 10^3/uL (0.0-0.8) 03/28/25 09:00 Baso # (Auto) 0.0 10^3/uL (0.0-0.1) 03/28/25 09:00 Nucleated RBC % (auto) 0 % 03/28/25 09:00 Nucleated RBCs # 0.0 /100WBC 03/28/25 09:00 PT 16.20 SECONDS (12.1-14.9) H 03/28/25 09:00 INR 1.21 (0.8-1.2) H 03/28/25 09:00 APTT 29.5 SECONDS (23.9-36.7) 03/28/25 09:00 Sodium 131 mmol/L (136-145) L 03/28/25 09:00 Potassium 3.4 mmol/L (3.5-5.1) L 03/28/25 09:00 Chloride 96 mmol/L (98-107) L 03/28/25 09:00 Carbon Dioxide 24 mmol/L (22-29) 03/28/25 09:00 Anion Gap 14.4 (5-19) 03/28/25 09:00 BUN 10 mg/dL (8-23) 03/28/25 09:00 Creatinine 1.0 mg/dL (0.5-0.9) H 03/28/25 09:00 GFR Calculation Not Reportable 03/28/25 09:00 Glucose 122 mg/dL (65-115) H 03/28/25 09:00 POC Glucose 114 mg/dL (70-110) H 03/28/25 09:26 Calculated Osmolality 272 mOsm/kg (285-295) L 03/28/25 09:00 Calcium 8.8 mg/dL (8.5-10.5) 03/28/25 09:00 Total Bilirubin 0.6 mg/dL (0.15-1.2) 03/28/25 09:00 AST 27 U/L (0-32) 03/28/25 09:00 ALT 16 U/L (0-33) 03/28/25 09:00 Alkaline Phosphatase 77 U/L (35-105) 03/28/25 09:00 Troponin T Baseline 8 ng/L (0-10) 03/28/25 09:00 Troponin T 120 Minute 8.06 ng/L (0-10) 03/28/25 11:00 Delta Troponin T 0.06 ABS# (0-10) 03/28/25 11:00 Total Protein 6.8 g/dL (6.6-8.7) 03/28/25 09:00 Albumin 3.8 g/dL (3.5-5.2) 03/28/25 09:00 Globulin 3.0 g/dL (1.3-4.6) 03/28/25 09:00 Urine Color Yellow (Yellow) 03/28/25 09:27 Urine Appearance Cloudy (CLEAR) A 03/28/25 09: Urine pH 6.5 (5-7) 03/28/25 09: Ur Specific [place] 1.029 (1.005-1.030) 03/28/25 09:27 Urine Protein Negative (Negative) 03/28/25 09: Urine Glucose (UA) Negative (Normal) 03/28/25 09: Urine Ketones Trace (Negative) 03/28/25 09: Urine Blood 2+ (Negative) A 03/28/25 09: Urine Nitrate Negative (Negative) 03/28/25 09: Urine Bilirubin Negative (Negative) 03/28/25 09: Urine Urobilinogen 1.0 mg/dL (Negative) 03/28/25 09:27 Ur Leukocyte Esterase Negative (Negative) 03/28/25 09:27 Urine RBC 6-10 /hpf (0-2) 03/28/25 09:27 Urine WBC 0-5 /hpf (0-5) 03/28/25 09:27 Ur Squamous Epith Cells 11-20 /hpf (0-5) H 03/28/25 09:27 Amorphous Sediment Not Reportable 03/28/25 09: Urine Bacteria 1+ /hpf (NONE) H 03/28/25 09: Hyaline Casts 6.17 /lpf 03/28/25 09:27 Urine Opiates Screen Negative ng/mL (Negative) 03/28/25 09:27 Ur Barbiturates Screen Negative ng/mL (Negative) 03/28/25 09:27 Ur Phencyclidine Scrn Negative ng/mL (Negative) 03/28/25 09:27 Ur Amphetamines Screen Negative ng/mL (Negative) 03/28/25 09:27 U Benzodiazepines Scrn Positive ng/mL (Negative) H 03/28/25 09:27 Urine Cocaine Screen Negative ng/mL (Negative) 03/28/25 09:27 U Marijuana (THC) Screen Negative ng/mL (Negative) 03/28/25 09:27 All radiology interpretation(s) finalized by discharge Discharge Plan Discharge Patient Disposition: Admitted As Inpatient Admit Provider: Yossi Small Clinical Impression: CVA (cerebral vascular accident), Atrial fibrillation Condition: Stable Coding Level of Care Code ED [employer] for Rossana Oliver
[2025-03-28 09:26] LABS: Alanine Aminotransferase 16 U/L (0-33); Albumin Level 3.8 g/dL (3.5-5.2); Alkaline Phosphatase 77 U/L (35-105); Anion Gap 14.4 (5-19); Aspartate Amino Transferase 27 U/L (0-32); Blood Urea Nitrogen 10 mg/dL (8-23); Calcium 8.8 mg/dL (8.5-10.5); Carbon Dioxide 24 mmol/L (22-29); Chloride 96 mmol/L (98-107); Globulin 3.0 g/dL (1.3-4.6); Glucose 122 mg/dL (65-115); Osmolality Calculated 272 mOsm/kg (285-295); Potassium 3.4 mmol/L (3.5-5.1); Sodium 131 mmol/L (136-145); Total Protein 6.8 g/dL (6.6-8.7)
--- NOTE | 2025-03-28 09:35 | ECG_ITS ---
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
[2025-03-28 09:57] LABS: Glucose Urine UA Negative (Normal); Nitrate Urine Negative (Negative); Specific Gravity, Urine 1.029 (1.005-1.030)
[2025-03-28 09:59] LABS: Add Urine Microscopic? YES
[2025-03-28 10:04] LABS: PCP Screen Urine Negative (Negative)
[2025-03-28 10:19] LABS: UA Slide Review UA Slide Review Perf
[2025-03-28 10:58] LABS: Troponin(5th) Baseline 8 ng/L (0-10)
[2025-03-28 11:21] LABS: Troponin 5 2HR 8.06 ng/L (0-10); Troponin 5 2HR Delta 0.06 ABS# (0-10)
--- NOTE | 2025-03-28 12:25 | PM.HP ---
Providers/Chief Complaint Admitting Physician: Yossi Small Primary Care Provider: Victorino Chappell MD Chief Complaint: stroke alert History of Present Illness Cheyanne Fonseca is a 79 year old woman with a history of atrial fibrillation, hyperlipidemia, hypertension, cerebrovascular accident in 2020, and major depressive disorder who presents after onset of left-sided weakness and trouble speaking noted between 07:30?08:00 this morning. A family member found her slumped over with foot shaking; emergency medical services transported her to the hospital. She reports feeling tired recently but denies preceding illness. Symptoms improved en route and continue to improve, with residual dysarthria. She recalls a prior stroke in 2020 that caused left-sided weakness requiring therapy. She denies chest pain, dyspnea, cough, fever (except a low-grade fever Friday night), diarrhea, or recent trauma. She notes easy bruising and prolonged bleeding with cuts but no hematuria or melena. Chronic leg swelling is longstanding; currently legs are not swollen. No tobacco, alcohol, or illicit drug use. Review of Systems Const: Denies: fever(s), chills, body aches or malaise ENMT: Denies: throat pain Card: Denies: chest pain, edema, pre-syncope or dyspnea on exertion Resp: Denies: dyspnea, productive cough, change in phlegm color or hemoptysis GI: Denies: abdominal pain, nausea, vomiting, diarrhea, constipation, hematochezia or melena : Denies: flank pain, urinary frequency or hematuria Musc: Denies: back pain, joint swelling or joint redness Skin/Breast: Denies: rash or new lesions Neuro: Reports: weakness in extremities (L) and Slurred speech present; Denies: headache(s) or confusion Medications/Allergies Home Medications ?Medication ?Instructions ?Recorded ?Confirmed ?Last Taken ?Type lorazepam 0.5 mg tablet 0.5 mg PO TID PRN Anxiety #90 tabs 09/27/22 03/28/25 Unknown Rx acetaminophen 325 mg tablet 325 mg PO QID PRN Pain 02/03/23 03/28/25 Unknown History Gauntlet Style AFO, no #1 ea 04/15/23 03/28/25 Unknown Rx substitutions metoprolol tartrate 25 mg tablet 12.5 mg PO BID 04/12/24 03/28/2525 History triamterene 37.5 1 tab PO DAILY 04/12/24 03/28/25 03/27/25 History mg-hydrochlorothiazide 25 mg tablet apixaban 2.5 mg tablet 2.5 mg PO BID #180 tabs 02/04/25 03/28/25 03/27/25 Rx cetirizine 10 mg tablet 10 mg PO DAILY PRN allergies 03/28/25 03/28/25 03/27/25 History ropinirole 0.25 mg tablet 0.25 mg PO BEDTIME 03/28/25 03/28/25 Unknown History rosuvastatin 5 mg tablet 5 mg PO DAILY 03/28/25 03/28/25 Unknown History Allergies Allergy/AdvReac Type Severity Reaction Status Date / Time codeine Allergy Severe throat Verified 03/28/25 11:43 swells shellfish derived Allergy Severe ALGY-Anaphy Verified 03/28/25 11:43 laxis alendronate sodium (From Allergy Intermediate diarrhea Verified 03/28/25 11:43 Fosamax) paroxetine (From Paxil) Allergy Intermediate Unknown Verified 03/28/25 11:43 temazepam Allergy Intermediate hives Verified 03/28/25 11:43 aspirin Allergy Unknown Unknown Verified 03/28/25 11:43 Sulfa (Sulfonamide Allergy Unknown Unknown Verified 03/28/25 11:43 Antibiotics) Iodinated Contrast Media Allergy Unknown Verified 03/28/25 11:43 buspirone (From BuSpar) AdvReac Intermediate dizziness Verified 03/28/25 11:43 clonazepam (From Klonopin) AdvReac Intermediate dizziness Verified 03/28/25 11:43 diazepam (From Valium) AdvReac Intermediate hallucinati Verified 03/28/25 11:43 on risperidone (From Risperdal) AdvReac Intermediate unsteady Verified 03/28/25 11:43 tramadol (From Ultram) AdvReac Intermediate raises BP Verified 03/28/25 11:43 venlafaxine (From Effexor) AdvReac Intermediate felt drunk Verified 03/28/25 11:43 contrast dye Allergy Unknown Unknown Uncoded 03/28/25 10:33 PFSH Acute PFSH: Medical History Atrial fibrillation Atrial fibrillation with RVR Dyslipidemia Depression Hypertension CVA (cerebral vascular accident) Family History Other CAD (coronary artery disease) Social History Smoking and tobacco/nicotine status: former use of tobacco/nicotine Alcohol intake: never Substance/Drug Use: never Vitals/I&O/Wt Last Vital Signs Temp 97.5 F L 03/28/25 10:01 Pulse 74 03/28/25 11:53 Resp 16 03/28/25 11:53 BP 155/86 03/28/25 11:53 Pulse Ox 96 03/28/25 11:53 O2 Del Method Room Air 03/28/25 11:53 Weight last 48 hrs Weight 80.739 kg Physical Exam Const: COMMON NORMALS: patient oriented x3 and alert GENERAL APPEARANCE: cooperative ORIENTATION/CONSCIOUSNESS: Yes awake HENMT: COMMON NORMALS: oropharynx normal Neck/C-Spine: COMMON NORMALS: no JVD Resp: COMMON NORMALS: normal respiratory effort and clear to auscultation bilaterally AUSCULTATION: clear to auscultation bilaterally Cardio: COMMON NORMALS: no JVD, regular rhythm, S1 normal heart sound present, S2 normal heart sound present and No murmurs present (Cardio) RHYTHM: regular rhythm HEART SOUNDS: S1 normal heart sound present and S2 normal heart sound present GI: COMMON NORMALS: Normal to inspection, nondistended, normoactive bowel sounds present, Soft to palpation and non-tender PALPATION: Yes Soft to palpation Extremity: COMMON NORMALS: no joint enlargement and no pedal edema Neuro: COMMON NORMALS: patient oriented x3 and moves all extremities SENSORIUM/ORIENTATION: Yes alert OTHER: She is awake and alert, following directions, no difficulties with horizontal tracking. No facial droop. Dysarthria appears to have resolved. No aphasia. Slightly slow on FNF but performing well. Visual michel full to confrontation. No upper or lower extremity drift. Sensory exam asymmetry with slightly stronger sensation on the right as opposed to the left. No sensory extinction. NIHSS of 1. Skin: COMMON NORMALS: no rashes or lesions noted GENERAL SKIN EXAM: no rashes or lesions noted Data 03/28/25 09:03/28/25 09:00 A&P Assessment and plan 1. CVA (cerebral vascular accident): CVA vs transient ischemic attack (TIA) : Acute onset left-sided weakness and dysarthria this morning with rapid improvement; NIH Stroke Scale 2; imaging without acute large-vessel occlusion suggests TIA over completed stroke; high short-term recurrence risk. Reviewed vitals, CBC, INR, CMP, UA, UDS, CT head, head and neck CTA, ED provider note, discussed with ED provider, neurology note. Carotid artery disease noted 50% or less on CTA. - Start Plavix (clopidogrel) as alternate antiplatelet because aspirin allergy. - Increase Eliquis from 2.5 mg to 5 mg BID because low current dose and continued stroke risk. Discussed risk of bleeding. - Begin high-intensity statin trial (atorvastatin) tonight; monitor tolerance. - Order transthoracic echocardiogram to evaluate cardiac source of emboli. - Requested physical therapy, occupational therapy, and speech-language evaluation per neurology recommendation. - Obtain viral swab to rule out concurrent infection (because low-grade fever Friday). She otherwise denies any shortness of breath, cough, other symptoms of upper or lower respiratory tract infection. Urinalysis reviewed, unremarkable. - Check fasting glucose and lipid profile per neurology. Check A1c due to hyperglycemia noted glucose 122. - Neuro clinic follow-up after discharge. 2. Hypertension: Long-standing; BP 181/74 today?tolerated to support cerebral perfusion post-TIA; permissive hypertension for now. Discussed with her and family long-term goal <120/80. - Continue current antihypertensives in hospital; avoid acute lowering today. - Counseled to target home readings around 120/80 correction using home cuff. 3. Atrial fibrillation: Atrial fibrillation : Chronic AF on oral anticoagulation; currently on subtherapeutic Eliquis dose. - Increase Eliquis to 5 mg BID (see above) with bleeding precautions. - Continue metoprolol 12.5 mg twice daily - Telemetric rhythm monitoring during hospitalization. Plan: Hyperlipidemia : Untreated due to prior intolerance to unspecified statin. - Trial atorvastatin during hospitalization; if intolerance recurs, pursue PCSK9 inhibitor with prior authorization. Leg edema (possible venous insufficiency) : Intermittent bilateral leg swelling, currently resolved; history of weeping edema after minor scratch sometime ago. No current edema. - Encourage leg elevation and ambulation long-term. - Recommend knee-high compression stockings. - Obtain echocardiogram (above) to assess for heart failure; consider venous studies outpatient if swelling recurs. - Follow-up with primary provider, as discussed to further consider additional venous studies with possible venous insufficiency of the longstanding problem which has been going on for over a year Obstructive sleep apnea : Remote diagnosis by prior sleep study; no current CPAP use. - Recommend repeat sleep study to reassess severity and need for CPAP therapy. PDMP PDMP Reviewed: Not Reviewed Attestations Medical Necessity Statement*: Place in observation for additional assessment management after CVA in a lady with underlying hypertension, A-fib, additional comorbidities as above. and High MDM includes amount and/or complexity of data reviewed/ordered [ previous or external records, resulted lab(s)/test(s), ordered lab(s)/test(s) and other healthcare professional discussion] and described risk of complication, morbidity or mortality of management as documented Diagnoses CVA (cerebral vascular accident) I63.9 Hypertension I10 Atrial fibrillation I48.91
--- NOTE | 2025-03-28 12:30 | USCV_ITS ---
Cheyanne Fonseca Age: 79 Gender: F : 1945 Exam Date: 03/28/2025 14:30 Ordering Phys: Yossi Small MD Technologist: Exam Location: [facility] [place] Indication: tia BP: / HR: 79 Rhythm: Sinus Technical Quality: Adequate MEASUREMENTS (Male / Female) Normal Values 2D ECHO LVOT Diameter 2.0 cm LV Ejection Fraction MOD 4C 57.6 % LV Ejection Fraction MOD 2C 68.4 % LV Ejection Fraction 2C AL 69.1 % LA Diameter 4.4 cm Aorta at Sinotubular Diameter 2.8 cm M-MODE LA Ao Ratio MM 1.4 AV Cusp Separation MM 2.3 cm DOPPLER AV Peak Velocity 133.7 cm/s LVOT Peak Velocity 109.0 cm/s AV Area Cont Eq vti 3.8 cm squared AV Area Cont Eq pk 2.6 cm squared MV Peak Velocity 101.0 cm/s MV Area PHT 3.3 cm squared Mitral E to A Ratio 0.7 TV Peak Velocity 123.0 cm/s TR Peak Velocity 130.0 cm/s TR Peak Gradient 6.8 mmHg TV Peak E Velocity 83.0 cm/s PV Peak Velocity 117.0 cm/s FINDINGS Left Ventricle Normal left ventricular size, systolic function and wall thickness, with no regional wall motion abnormalities. Left ventricular ejection fraction is estimated at 60 %. Grade I/IV diastolic dysfunction (abnormal relaxation filling pattern), normal to mildly elevated filling pressures. Right Ventricle The right ventricle is normal in size and function. Right Atrium The right atrium is normal in size. There appeared to be a bubble study which is relatively weak however there was no crossing of contrast across the interatrial septum, overall bubble study is negative there is no evidence of PFO Left Atrium The left atrium is normal in size. Mitral Valve Structurally normal mitral valve without significant stenosis or prolapse. There is no mitral regurgitation. Aortic Valve Mild aortic valve calcification. No aortic valve stenosis. Mild aortic valve regurgitation. Tricuspid Valve Structurally normal tricuspid valve without significant stenosis or regurgitation. Pulmonary artery systolic pressure is normal. Pulmonic Valve Structurally normal pulmonic valve without significant stenosis. There is no pulmonic regurgitation. Pericardium Normal pericardium without effusion. Aorta Normal ascending aorta dimension. IVC The inferior vena cava appears normal. CONCLUSIONS Normal left ventricular size, systolic function and wall thickness, with no regional wall motion abnormalities. Left ventricular ejection fraction is estimated at 60 %. Grade I/IV diastolic dysfunction (abnormal relaxation filling pattern), normal to mildly elevated filling pressures. The right atrium is normal in size. There appeared to be a bubble study which is relatively weak however there was no crossing of contrast across the interatrial septum, overall bubble study is negative there is no evidence of PFO Mild aortic valve calcification. No aortic valve stenosis. Mild aortic valve regurgitation. There is no pericardial effusion. Right atrial pressure is around 5 mm of mercury. Cristóbal Kinney MD (Electronically Signed) Final Date: 30 March 2025 12:00 S
--- NOTE | 2025-03-28 14:20 | ECG_ITS ---
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
[2025-03-28 15:18] LABS: Troponin 5 6HR 6.95 ng/L (0-10)
[2025-03-28 15:19] LABS: Troponin 5 6HR Delta -1.05 ng/L (0-12)
[2025-03-28 16:07] LABS: Coronavirus 229E,HKU1,NL63,OC4 Not Detected (NOT DETECT); Parainfluenza Virus Type 1 Not Detected (NOT DETECT); Parainfluenza Virus Type 2 Not Detected (NOT DETECT); Parainfluenza Virus Type 3 Not Detected (NOT DETECT); Parainfluenza Virus Type 4 Not Detected (NOT DETECT); SARS-COV-2 Not Detected (NOT DETECT)
--- NOTE | 2025-03-28 16:28 | ECG_ITS ---
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 Measurements Intervals [place] Rate: 71 P: 51 LA: 170 QRS: 18 QRSD: 87 T: 207 QT: 387 QTc: 423 Interpretive Statements SINUS RHYTHM MODERATE T-WAVE ABNORMALITY, CONSIDER INFERIOR ISCHEMIA [-0.1+ mV T-WAVE IN II/aVF] Compared to ECG 03/28/2025 14:20:55 No significant changes Electronically Signed On 03-30-2025 09:29:07 CDT by Sophie Bales M.D. [id number] [id number]
[2025-03-29] VITALS (13 sets, daily range): BP systolic 130–163; BP diastolic 63–89; PULSE 60–73; RESP 16–19; TEMP 36.5–37.1; O2SAT 95–96
[2025-03-29 05:23] LABS: Cholesterol 178 mg/dL (0-200); HDL Cholesterol 51 mg/dL (60-100); Triglycerides 98 mg/dL (0-150)
[2025-03-29 06:16] LABS: Estmated Average Glucose 103; Hemoglobin A1C 5.2 % (4.0-6.0)
[2025-03-29 10:19] LABS: Hematocrit 40.5 % (36-47); Hemoglobin 13.80 g/dL (11.27-16.99); Mean Corpuscular HGB Conc 34.1 g/dL (30-55); Mean Corpuscular Hemoglobin 27.7 pg (27-33); Mean Corpuscular Volume 81.3 fl (85-98); Nucleated Red Blood Cells % 0 %; Platelet Count 216 10^3/cmm (157-399); Red Blood Count 4.98 10^6/uL (3.85-5.65); White Blood Count 6.09 10^3/uL (3.29-11.43)
--- NOTE | 2025-03-29 10:30 | PC.NURSE ---
Approximately 1005 family got patient up to bathroom. Family reported patient started shaking and hit head on the wall behind toilet. This nurse went to room at 1010 while patient on stool. Patient would not talk when asking name. Patient wheeled back to bed. Dr. Small called at and in room by 1013. Patient was responsive with physician. BP 130/89, HR 60, O2 96, Temp 96.8 and Blood sugar 138. Troponin and EKG series ordered, Cardiac monitoring started, cardiac diet placed and orthostatics orderd.
--- NOTE | 2025-03-29 10:58 | ECG_ITS ---
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 Measurements Intervals [place] Rate: 57 P: -17 [place]: 176 QRS: 7 QRSD: 93 T: 146 QT: 458 QTc: 447 Interpretive Statements SINUS BRADYCARDIA MODERATE T-WAVE ABNORMALITY, CONSIDER ANTEROLATERAL ISCHEMIA [-0.1+ mV T-WAVE IN V3-V6] Compared to ECG 03/28/2025 17:08:17 Sinus rhythm no longer present T-wave abnormality still present Possible ischemia still present Electronically Signed On 03-29-2025 23:01:09 CDT by Sophie Bales M.D. [id number] [id number]
[2025-03-29 12:07] LABS: Troponin(5th) Baseline 11 ng/L (0-10)
[2025-03-29 13:43] LABS: Troponin 5 2HR 10.70 ng/L (0-10)
[2025-03-29 13:47] LABS: Troponin 5 2HR Delta -0.30 ABS# (0-10)
--- NOTE | 2025-03-29 14:04 | ECG_ITS ---
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 Measurements Intervals [place] Rate: 65 P: 51 [place]: 172 QRS: 20 QRSD: 93 T: 204 QT: 438 QTc: 458 Interpretive Statements SINUS RHYTHM MODERATE T-WAVE ABNORMALITY, CONSIDER ANTEROLATERAL ISCHEMIA [-0.1+ mV T-WAVE IN V3-V6] MODERATE T-WAVE ABNORMALITY, CONSIDER INFERIOR ISCHEMIA [-0.1+ mV T-WAVE IN II/aVF] Compared to ECG 03/29/2025 10:58:52 Sinus bradycardia no longer present T-wave abnormality still present Possible ischemia still present Electronically Signed On 03-29-2025 23:09:24 CDT by Sophie Bales M.D. [email or web address] [id number]
[2025-03-29 17:27] LABS: Troponin 5 6HR 11.50 ng/L (0-10); Troponin 5 6HR Delta 0.50 ng/L (0-12)
--- NOTE | 2025-03-29 18:06 | P.PN_ITS ---
Subjective 2 Subjective: Syncopal episode this morning while using the toilet was heard to have fallen over and then was noted to have some brief convulsions which were self-limited. She was confused afterwards. She states she remembers the onset like water was pouring over her. Denies chest pain or pressure. Denies palpitations. Does not have history of seizure. Orthostatics requested. Subsequently on try to get up to the restroom again additional presyncopal episode. No convulsions at that time. With the monitor showing bradycardia heart rate down as low as 37. Vitals/I&O/Wt Last Vital Signs Temp 97.7 F 03/29/25 17:00 Pulse 64 03/29/25 17:00 Resp 19 H 03/29/25 17:00 BP 138/63 03/29/25 17:00 Pulse Ox 96 03/29/25 16:27 O2 Del Method Room Air 03/29/25 16:27 03/29/25 03/29/25 03/29/25 06:59 14:59 22:59 Intake Total 120 / 120 Balance 120 / 120 Weight last 48 hrs Weight 79.889 kg Weight 79.424 kg Weight 80.739 kg Physical Exam 2 Narrative: Awake and alert Const: COMMON NORMALS: patient oriented x3 and alert GENERAL APPEARANCE: c ooperative ORIENTATION/CONSCIOUSNESS: Yes awake HENMT: COMMON NORMALS: oropharynx normal Neck/C-Spine: COMMON NORMALS: no JVD Resp: COMMON NORMALS: normal respiratory effort and clear to auscultation bilaterally AUSCULTATION: clear to auscultation bilaterally Cardio: COMMON NORMALS: no JVD, regular rhythm, S1 normal heart sound present, S2 normal heart sound present and No murmurs present (Cardio) RHYTHM: regular rhythm HEART SOUNDS: S1 normal heart sound present and S2 normal heart sound present GI: COMMON NORMALS: Normal to inspection, nondistended, normoactive bowel sounds present, Soft to palpation and non-tender PALPATION: Yes Soft to palpation Extremity: COMMON NORMALS: no joint enlargement and no pedal edema Neuro: COMMON NORMALS: patient oriented x3 and moves all extremities S ENSORIUM/ORIENTATION: Yes alert OTHER: She is awake and alert, following directions, no difficulties with horizontal tracking. No facial droop. Dysarthria appears to have resolved. No aphasia. Slightly slow on FNF but performing well. Visual michel full to confrontation. No upper or lower extremity drift. Sensory exam asymmetry with slightly stronger sensation on the right as opposed to the left. No sensory extinction. NIHSS of 1. Skin: COMMON NORMALS: no rashes or lesions noted GENERAL SKIN EXAM: no rashes or lesions noted Data 03/29/25 09:48 03/28/25 09:00 A&P Assessment and plan 1. Syncope: Syncopal episode this morning, some convulsions noted with concern initially for possible seizure. Somewhat confused afterwards, but only brief if any postictal period. No history of prior seizure. Did just have a head CT yesterday. As well as head CTA. Requested troponin EKG series. Orthostatics. 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 Additional episode of presyncope shortly after that with noted bradycardia down as low as 37 on the monitor. Sinus bradycardia. Glucose was checked and no hypoglycemia. Discussed with her and her family. Echocardiogram is ordered and pending. Stopped metoprolol entirely. Monitor on telemetry. Monitor for recurrent bradycardia. Bedrest for now, may attempt to get up again tomorrow morning. Recheck orthostatics. Will check TSH, magnesium, repeat BMP with mild hypokalemia yesterday. 2. Cerebrovascular accident (CVA), unspecified mechanism: Symptoms unchanged. For the most part resolved except for mildly diminished sensation on the right side minimal left lower extremity drift. NIHSS of 2. Reviewed blood counts, no decrease in hemoglobin. Reviewed vitals. Blood pressure close to goal. Follow-up pending echocardiogram. Will benefit from continued optimization of blood pressure control as outpatient. 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 Continue Plavix, Eliquis. Reassess blood counts. Monitor for risk of bleeding. Reviewed A1c, no sign of diabetes with A1c 5.2. Discussed with nursing, manager of case management, PT. - Physical therapy, occupational therapy, and speech-language evaluation per neurology recommendation. -Reviewed viral swab which is unremarkable - Neuro clinic follow-up after discharge. 3. Primary hypertension: Reviewed blood pressure, with improvement. Metoprolol discontinued due to episodes of bradycardia as above. Long-standing; BP 181/74 today?tolerated to support cerebral perfusion post-TIA; permissive hypertension for now. Discussed with her and family long-term goal <120/80. - Continue current antihypertensives in hospital; avoid acute lowering today. - Counseled to target home readings around 120/80 longterm using home cuff. 4. Chronic atrial fibrillation: Atrial fibrillation : Chronic AF on oral anticoagulation; currently on subtherapeutic Eliquis dose. - Increased Eliquis to 5 mg BID (see above) with bleeding precautions. - Stop metoprolol 12.5 mg twice daily - Telemetric rhythm monitoring during hospitalization. Plan: Hyperlipidemia : Untreated due to prior intolerance to unspecified statin. - Trial atorvastatin during hospitalization; if intolerance recurs, pursue PCSK9 inhibitor with prior authorization. Leg edema (possible venous insufficiency) : Intermittent bilateral leg swelling, currently resolved; history of weeping edema after minor scratch sometime ago. No current edema. - Encourage leg elevation and ambulation long-term. - Recommend knee-high compression stockings. - Obtain echocardiogram (above) to assess for heart failure; consider venous studies outpatient if swelling recurs. - Follow-up with primary provider, as discussed to further consider additional venous studies with possible venous insufficiency of the longstanding problem which has been going on for over a year Obstructive sleep apnea : Remote diagnosis by prior sleep study; no current CPAP use. - Recommend repeat sleep study to reassess severity and need for CPAP therapy. PDMP PDMP Reviewed: Not Reviewed Attestations 2 Medical Necessity Statement*: Admission over 2 midnights needed for assessment and management of recurrent syncopal episode, severe bradycardia, status post CVA in an elderly lady. and High MDM includes amount and/or complexity of data reviewed/ordered [ resulted lab(s)/test(s), ordered lab(s)/test(s) and other healthcare professional discussion] and described risk of complication, morbidity or mortality of management as documented Diagnoses Syncope R55 Cerebrovascular accident (CVA), unspecified mechanism I63.9 Primary hypertension I10 Hypertension type: primary hypertension Chronic atrial fibrillation I48.20 Atrial fibrillation type: unspecified chronic
[2025-03-29 20:03] LABS: Anion Gap 18.3 (5-19); Blood Urea Nitrogen 25 mg/dL (8-23); Calcium 8.9 mg/dL (8.5-10.5); Carbon Dioxide 23 mmol/L (22-29); Chloride 97 mmol/L (98-107); Creatinine Clr Calc Pharmacy 35.4455; Glucose 139 mg/dL (65-115); Magnesium 2.0 mg/dL (1.7-2.3); Osmolality Calculated 287 mOsm/kg (285-295); Potassium 3.3 mmol/L (3.5-5.1); Sodium 135 mmol/L (136-145)
[2025-03-29 22:00] LABS: Thyroid Stimulating Hormone 1.09 uIU/mL (0.27-4.20)
[2025-03-30] VITALS (7 sets, daily range): BP systolic 121–164; BP diastolic 63–84; PULSE 73–104; RESP 16–20; TEMP 36.5–37.1; O2SAT 95–96
[2025-03-30 05:19] LABS: Hematocrit 34.7 % (36-47); Hemoglobin 11.60 g/dL (11.27-16.99); Mean Corpuscular HGB Conc 33.4 g/dL (30-55); Mean Corpuscular Hemoglobin 27.7 pg (27-33); Mean Corpuscular Volume 82.8 fl (85-98); Nucleated Red Blood Cells % 0 %; Platelet Count 152 10^3/cmm (157-399); Red Blood Count 4.19 10^6/uL (3.85-5.65); White Blood Count 3.60 10^3/uL (3.29-11.43)
[2025-03-30 05:43] LABS: Anion Gap 15.2 (5-19); Blood Urea Nitrogen 27 mg/dL (8-23); Calcium 8.6 mg/dL (8.5-10.5); Carbon Dioxide 23 mmol/L (22-29); Chloride 99 mmol/L (98-107); Creatinine Clr Calc Pharmacy 41.8902; Glucose 105 mg/dL (65-115); Magnesium 2.0 mg/dL (1.7-2.3); Osmolality Calculated 283 mOsm/kg (285-295); Potassium 3.2 mmol/L (3.5-5.1); Sodium 134 mmol/L (136-145)
--- NOTE | 2025-03-30 15:48 | P.DS_ITS ---
Discharge Providers Date of Admission: 03/29/25 10:32 Date of Discharge: March 30, 2025 Attending Provider at Admission: Yossi Small Attending Provider at Discharge: Yossi Small Primary Care Provider: Victorino Chappell MD Diagnoses at Discharge Discharge Diagnosis 1. Syncope: 2. Cerebrovascular accident (CVA), unspecified mechanism: 3. Primary hypertension: 4. Chronic atrial fibrillation: Reason for Visit Reason for Visit: stroke alert Brief History: Cheyanne Fonseca is a 79 year old woman with a history of atrial fibrillation, hyperlipidemia, hypertension, cerebrovascular accident in 2020, and major depressive disorder who presents after onset of left-sided weakness and trouble speaking noted between 07:30?08:00 this morning. A family member found her slumped over with foot shaking; emergency medical services transported her to the hospital. She reports feeling tired recently but denies preceding illness. Symptoms improved en route and continue to improve, with residual dysarthria. She recalls a prior stroke in 2020 that caused left-sided weakness requiring therapy. She denies chest pain, dyspnea, cough, fever (except a low-grade fever Friday night), diarrhea, or recent trauma. She notes easy bruising and prolonged bleeding with cuts but no hematuria or melena. Chronic leg swelling is longstanding; currently legs are not swollen. No tobacco, alcohol, or illicit drug use. Hospital Course Hospital Course She was admitted for further assessment and management echocardiogram was obtained with including bubble study which did not show findings of septal defect. Blood pressures were monitored and gradually subsided. A1c was checked and not elevated. She had previously stopped taking her rosuvastatin after 1 dose. She is willing to try atorvastatin to see if she may be tolerating statins, but otherwise consideration may be given to PCSK9 inhibitor. As she is over 78 years old blood creatinine has been below 1.5 and weight is over 60 kg with risk of recurrent stroke with atrial fibrillation as per discussion with her and family of bleeding risk she was resumed on Eliquis dose of 5 mg twice daily. She was also started on Plavix with suspected CVA with residual mild left side lower extremity drift mild asymmetrical. The symptoms have been improving/resolving. During hospitalization she had a syncopal episode and another presyncopal episode during which she was found to be bradycardic. Heart rate noted decreasing down as low as 37 bpm. Metoprolol was discontinued with improvement and she is asked not to continue metoprolol and avoid any other bradycardia arrhythmics. She was counseled to continue to monitor blood pressures and pursue long-term blood pressure control goal of less than 120/80. She is continued on triamterene hydrochlorothiazide. Received potassium supplementation during hospitalization. Please reassess after suspected CVA, continue to optimize control of hypertension, reassess and avoid bradycardia. She is set up with a wiping rag washer at discharge. TSH and magnesium are normal. Please reassess for any recurrent bradycardia, pauses, etc. No pauses were noted during hospitalization. She is asked to follow-up with neurology after discharge. Due to concern for possible sleep apnea pressed by patient and family she is referred for sleep study. Echocardiogram result was awaited returns today with normal ejection fraction, grade 1 diastolic dysfunction, bubble study relatively weak but without noted contrast crossing interatrial septum, overall negative for PFO. Noted mild AVR. Physical Exam Const: COMMON NORMALS: patient oriented x3 and alert GENERAL APPEARANCE: cooperative ORIENTATION/CONSCIOUSNESS: Yes awake HENMT: COMMON NORMALS: oropharynx normal Neck/C-Spine: COMMON NORMALS: no JVD Resp: COMMON NORMALS: normal respiratory effort and clear to auscultation bilaterally AUSCULTATION: clear to auscultation bilaterally Cardio: COMMON NORMALS: no JVD, regular rhythm, S1 normal heart sound present, S2 normal heart sound present and No murmurs present (Cardio) RHYTHM: regular rhythm HEART SOUNDS: S1 normal heart sound present and S2 normal heart sound present GI: COMMON NORMALS: Normal to inspection, nondistended, normoactive bowel sounds present, Soft to palpation and non-tender PALPATION: Yes Soft to palpation Extremity: COMMON NORMALS: no joint enlargement and no pedal edema Neuro: COMMON NORMALS: patient oriented x3 and moves all extremities SENSORIUM/ORIENTATION: Yes alert Skin: COMMON NORMALS: no rashes or lesions noted GENERAL SKIN EXAM: no rashes or lesions noted Discharge Data Studies Completed and Pending Completed Studies During Hospitalization Category Date Time Status CT angio headneck* [id number] Stat Cat Scan 03/28/25 09:[address] head thrombolytic [id number] Stat Cat Scan 03/28/25 08:57 Completed CV. echo w/w bubble cont [id number] Routine Ultrasound 03/28/25 12:30 Completed Pending at discharge Category Date Time Status Basic Metabolic Panel AM LABS Lab 03/31/25 04:00 Ordered Basic Metabolic Panel AM LABS Lab 04/01/25 04:00 Ordered Complete Blood Count w/Auto AM LABS Lab 03/31/25 04:00 Ordered Complete Blood Count w/Auto AM LABS Lab 04/01/25 04:00 Ordered Radiology Impressions Head CT 03/28/25 08:57 IMPRESSION: 1. No acute intracranial hemorrhage or edema. 2. Mild volume loss and small vessel disease. Notified Steven Ellis DO at 03/28/2025 9:05 AM. Head/Neck CTA 03/28/25 09:01 IMPRESSION: 1. LEFT cervical ICA stenosis 50%. 2. RIGHT cervical ICA stenosis, less than 50%. 3. Moderate calcified plaque in the intracranial carotid arteries but no occlusions or stenosis. 4. No high-grade stenosis in the [place] or occlusion identified. 5. 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 6. No aneurysms. Laboratory Results WBC 3.60 10^3/uL (3.29-11.43) 03/30/25 04:33 RBC 4.19 10^6/uL (3.85-5.65) 03/30/25 04:33 Hgb 11.60 g/dL (11.27-16.99) 03/30/25 04:33 Hct 34.7 % (36-47) L 03/30/25 04:33 MCV 82.8 fl (85-98) L 03/30/25 04:33 MCH 27.7 pg (27-33) 03/30/25 04:33 MCHC 33.4 g/dL (30-55) 03/30/25 04:33 RDW 13.7 % (12.1-15.1) 03/30/25 04:33 Plt Count 152 10^3/cmm (157-399) L 03/30/25 04:33 MPV 10.0 fL (7.4-10.4) 03/30/25 04:33 Neut % (Auto) 62.2 % 03/30/25 04:33 Lymph % (Auto) 26.1 % 03/30/25 04:33 [place] % (Auto) 10.0 % 03/30/25 04:33 Eos % (Auto) 0.6 % 03/30/25 04:33 Baso % (Auto) 0.8 % 03/30/25 04:33 Neut # (Auto) 2.24 10^3/uL (1.8-7.7) 03/30/25 04:33 Lymph # (Auto) 0.9 10^3/uL (0.8-4.8) 03/30/25 04:33 [place] # (Auto) 0.4 10^3/uL (0.2-0.9) 03/30/25 04:33 Eos # (Auto) 0.0 10^3/uL (0.0-0.8) 03/30/25 04:33 Baso # (Auto) 0.0 10^3/uL (0.0-0.1) 03/30/25 04:33 Nucleated RBC % (auto) 0 % 03/30/25 04:33 Nucleated RBCs # 0.0 /100WBC 03/30/25 04:33 PT 16.20 SECONDS (12.1-14.9) H 03/28/25 09:00 INR 1.21 (0.8-1.2) H 03/28/25 09:00 APTT 29.5 SECONDS (23.9-36.7) 03/28/25 09:00 Sodium 134 mmol/L (136-145) L 03/30/25 04:20 Potassium 3.2 mmol/L (3.5-5.1) L 03/30/25 04:20 Chloride 99 mmol/L (98-107) 03/30/25 04:20 Carbon Dioxide 23 mmol/L (22-29) 03/30/25 04:20 Anion Gap 15.2 (5-19) 03/30/25 04:20 BUN 27 mg/dL (8-23) H 03/30/25 04:20 Creatinine 1.1 mg/dL (0.5-0.9) H 03/30/25 04:20 GFR Calculation Not Reportable 03/30/25 04:20 Glucose 105 mg/dL (65-115) 03/30/25 04:20 POC Glucose 138 mg/dL (70-110) H 03/29/25 10:12 Estimat Average Glucose 103 03/28/25 09:00 Hemoglobin A1c 5.2 % (4.0-6.0) 03/28/25 09:00 Calculated Osmolality 283 mOsm/kg (285-295) L 03/30/25 04:20 Calcium 8.6 mg/dL (8.5-10.5) 03/30/25 04:20 Magnesium 2.0 mg/dL (1.7-2.3) 03/30/25 04:20 Total Bilirubin 0.6 mg/dL (0.15-1.2) 03/28/25 09:00 AST 27 U/L (0-32) 03/28/25 09:00 ALT 16 U/L (0-33) 03/28/25 09:00 Alkaline Phosphatase 77 U/L (35-105) 03/28/25 09:00 Troponin T Baseline 11 ng/L (0-10) H 03/29/25 11:36 Troponin T 120 Minute 10.70 ng/L (0-10) H 03/29/25 13:11 Delta Troponin T -0.30 ABS# (0-10) L 03/29/25 13:11 Troponin T Hi Sens 6Hr 11.50 ng/L (0-10) H 03/29/25 16:48 Troponin T Hi Sens 6Hr Delta 0.50 ng/L (0-12) 03/29/25 16:48 Total Protein 6.8 g/dL (6.6-8.7) 03/28/25 09:00 Albumin 3.8 g/dL (3.5-5.2) 03/28/25 09:00 Globulin 3.0 g/dL (1.3-4.6) 03/28/25 09:00 Triglycerides 98 mg/dL (0-150) 03/28/25 14:58 Cholesterol 178 mg/dL (0-200) 03/28/25 14:58 LDL Cholesterol, Calc 107 mg/dL (50-129) 03/28/25 14:58 HDL Cholesterol 51 mg/dL (60-100) L 03/28/25 14:58 LDL/HDL Ratio 2.10 RATIO (0.00-3.22) 03/28/25 14:58 Cholesterol/HDL Ratio 3.49 mg/dL (0.0-4.40) 03/28/25 14:58 TSH 1.09 uIU/mL (0.27-4.20) 03/29/25 18:22 Urine Color Yellow (Yellow) 03/28/25 09:27 Urine Appearance Cloudy (CLEAR) A 03/28/25 09: Urine pH 6.5 (5-7) 03/28/25 09:27 Ur Specific [place] 1.029 (1.005-1.030) 03/28/25 09:27 Urine Protein Negative (Negative) 03/28/25 09: Urine Glucose (UA) Negative (Normal) 03/28/25 09: Urine Ketones Trace (Negative) 03/28/25 09: Urine Blood 2+ (Negative) A 03/28/25 09: Urine Nitrate Negative (Negative) 03/28/25 09: Urine Bilirubin Negative (Negative) 03/28/25 09: Urine Urobilinogen 1.0 mg/dL (Negative) 03/28/25 09: Ur Leukocyte Esterase Negative (Negative) 03/28/25 09:27 Urine RBC 6-10 /hpf (0-2) 03/28/25 09: Urine WBC 0-5 /hpf (0-5) 03/28/25 09:27 Ur Squamous Epith Cells 11-20 /hpf (0-5) H 03/28/25 09:27 Amorphous Sediment Not Reportable 03/28/25 09: Urine Bacteria 1+ /hpf (NONE) H 03/28/25 09:27 Hyaline Casts 6.17 /lpf 03/28/25 09:27 Urine Opiates Screen Negative ng/mL (Negative) 03/28/25 09:27 Ur Barbiturates Screen Negative ng/mL (Negative) 03/28/25 09:27 Ur Phencyclidine Scrn Negative ng/mL (Negative) 03/28/25 09:27 Ur Amphetamines Screen Negative ng/mL (Negative) 03/28/25 09:27 U Benzodiazepines Scrn Positive ng/mL (Negative) H 03/28/25 09:27 Urine Cocaine Screen Negative ng/mL (Negative) 03/28/25 09:27 U Marijuana (THC) Screen Negative ng/mL (Negative) 03/28/25 09:27 Adenovirus (PCR) Not detected (NOT DETECT) 03/28/25 13:55 C. pneumoniae DNA (PCR) Not detected (NOT DETECT) 03/28/25 13:55 Coronavirus 229E (PCR) Not detected (NOT DETECT) 03/28/25 13:55 Human Metapneumovir PCR Not detected (NOT DETECT) 03/28/25 13:55 Influenza A (H1) PCR Not detected (NOT DETECT) 03/28/25 13:55 Influ A (H1/09) PCR Not detected (NOT DETECT) 03/28/25 13:55 Influenza A (H3) PCR Not detected (NOT DETECT) 03/28/25 13:55 Influenza Type A (PCR) Not detected (NOT DETECT) 03/28/25 13:55 Influenza Type B (PCR) Not detected (NOT DETECT) 03/28/25 13:55 M. pneumoniae (PCR) Not detected (NOT DETECT) 03/28/25 13:55 Parainfluenza 1 (PCR) Not detected (NOT DETECT) 03/28/25 13:55 Parainfluenza 2 (PCR) Not detected (NOT DETECT) 03/28/25 13:55 Parainfluenza 3 (PCR) Not detected (NOT DETECT) 03/28/25 13:55 Parainfluenza 4 (PCR) Not detected (NOT DETECT) 03/28/25 13:55 RSV Type A (PCR) Not detected (NOT DETECT) 03/28/25 13:55 RSV Type B (PCR) Not detected (NOT DETECT) 03/28/25 13:55 Entero/Rhino (PCR) Not detected (NOT DETECT) 03/28/25 13:55 SARS-CoV-2 (PCR) Not detected (NOT DETECT) 03/28/25 13:55 Vitals Last Vital Signs Temp 97.7 F 03/30/25 11:14 Pulse 88 03/30/25 11:14 Resp 20 H 03/30/25 11:14 BP 121/82 03/30/25 11:14 Pulse Ox 96 03/30/25 11:14 O2 Del Method Room Air 03/30/25 11:14 Discharge Plan Discharge Patient Disposition: Home Health Service Condition: Stable Prescriptions: New Eliquis 5 mg Tablet 5 mg PO BID@0900,2100 Qty: 180 0RF clopidogrel 75 mg Tablet 75 mg PO DAILY Qty: 90 0RF atorvastatin 40 mg Tablet 40 mg PO BEDTIME Qty: 90 0RF potassium chloride 10 mEq capsule, extended release 10 meq PO DAILY Qty: 30 0RF Continued acetaminophen 325 mg tablet 325 mg PO QID PRN (Reason: Pain) lorazepam 0.5 mg tablet 0.5 mg PO TID PRN (Reason: Anxiety) Qty: 90 5RF cetirizine 10 mg tablet 10 mg PO DAILY PRN (Reason: allergies) ropinirole 0.25 mg tablet 0.25 mg PO BEDTIME triamterene-hydrochlorothiazid 37.5-25 mg tablet 1 tab PO DAILY Discontinued apixaban 2.5 mg tablet 2.5 mg PO BID Qty: 180 3RF rosuvastatin 5 mg tablet 5 mg PO DAILY metoprolol tartrate 25 mg tablet 12.5 mg PO BID No Action (DME) Gauntlet Style AFO, no substitutions See Rx Instructions .Route .MEDSUPPLY Qty: 1 0RF Rx Instructions: As directed to [place] and [place] Discharge Order = DC NOW: Discharge Order (Routine); Ordered 03/30/25 Ordered By: Yossi Small Other Ambulatory Orders: MCT/Event Monitor 21 Days (Routine) Timeframe: 1 Day Facility: [facility] - Location: Radiology Ordered By: Yossi Small Sleep Study/Titration (Routine) Timeframe: 1 Week Facility: [facility] - Location: [facility] Ordered By: Yossi Small Referrals: [facility] [Outside] Victorino Chappell MD [Primary Care Provider, Family Practice] - 04/05/25 1:30 pm Louis Yuan MD [Physician, Neurology] - 05/12/25 11:00 am Referral Note: CVA Discharge Diet: Cardiac Patient Instructions: Atorvastatin (By mouth) (Lipitor, Atorvaliq), Clopidogrel (By mouth), Apixaban (By mouth), Potassium Content of Foods List (GEN), Syncope (GEN), Ischemic Stroke (GEN), Bradycardia (GEN), Stroke Stoplight, Patient Portal & Yanci Instructions Activity Restrictions/Additional Instructions: Please discontinue metoprolol. Follow-up with your primary doctor for reassessment after noted slow heart rate during episodes of feeling faint and fainting. Please complete heart monitor and follow-up with your primary doctor to discuss the results. Follow-up with your primary doctor and with neurology after suspected small stroke. With history of atrial fibrillation you are at risk of recurrent stroke and would benefit from anticoagulation as discussed. Your age is greater than 80 but serum creatinine is less than 1.5 and weight is greater than 60 kg due to this as discussed Eliquis dose is increased back up to 5 mg twice daily. Please be mindful to avoid any injury, seek medical attention in case of bleeding that is not resolving or concerning bleeding like gastrointestinal or urinary or other. You are also started on Plavix to help reduce risk of recurrent stroke which may also contribute to risk of bleeding. You are also started on cholesterol medication with atorvastatin, please follow- up with your primary doctor to reassess how you are tolerating this medication. If you are unable to tolerate statins please discuss with your primary doctor consideration of obtaining primary authorization for PCSK9 inhibitor. Your potassium was mildly low and you were given potassium replacement. One of the medications in your diuretic combination helps you retain potassium, but include potassium rich foods have your primary doctor recheck potassium level. Please seek medical attention in case of any worsening or new concerning symptoms. Discharge Attestations Time Spent in Discharge Care*: greater than 30 min Quality Metrics Clinical Quality Measures [ Cerebrovascular Accident { Contraindication to Antithrombotic: None; antithrom botic prescribed; Contraindication to Anticoagulation: None; anticoagulation prescribed; Contraindication to Statin: None; Statin prescribed;}] Coding Level of Care Code 26492 Total time (in minutes) for Discharge: 50 Diagnoses Syncope R55 Cerebrovascular accident (CVA), unspecified mechanism I63.9 Primary hypertension I10 Hypertension type: primary hypertension Chronic atrial fibrillation I48.20 Atrial fibrillation type: unspecified chronic
--- NOTE | 2025-03-30 17:36 | PC.NURSE ---
Discussed discharge with patient and family. Went over follow up appointments, new medications as well as stopped or changed medications. Patient went home with a panel monitor on. All questions answered and verbalized understanding.
== END 2025-03-30 13:50 | disposition home health service (06) | DRG 65 ==
LOC: ER 09:44 → ER IP 11:25 → MEDSURG 17:05
PROVIDERS: Admitting Provider Internal Medicine; Emergency Provider Family Medicine; PCP Family Medicine; Visit Provider Internal Medicine
DX: I63.9 Cerebral infarction, unspecified (principal); G81.94 Hemiplegia, unspecified affecting left nondominant side; I48.20 Chronic atrial fibrillation, unspecified; I10 Essential (primary) hypertension; R29.702 NIHSS score 2; M79.89 Other specified soft tissue disorders; E78.5 Hyperlipidemia, unspecified; F32.9 Major depressive disorder, single episode, unspecified; R00.1 Bradycardia, unspecified; R55 Syncope and collapse; G47.33 Obstructive sleep apnea (adult) (pediatric); Z79.01 Long term (current) use of anticoagulants; Z79.899 Other long term (current) drug therapy; Z86.73 Personal history of transient ischemic attack (TIA), and cerebral infarction without residual deficits; Z88.2 Allergy status to sulfonamides; Z88.8 Allergy status to other drugs, medicaments and biological substances; Z88.6 Allergy status to analgesic agent; Z91.041 Radiographic dye allergy status; Z88.5 Allergy status to narcotic agent; Z91.013 Allergy to seafood; Z82.49 Family history of ischemic heart disease and other diseases of the circulatory system; Z91.148 Patient's other noncompliance with medication regimen for other reason
CPT/HCPCS: 36415; 36416; 70450; 70496; 70498; 80048; 80053; 80061; 80306; 81001; 82962; 83036; 83735; 84443; 84484; 85025; 85610; 85730; 87486; 87581; 87633; 92507; 92523; 92526; 92610; 93005; 96374; 96375; 97110; 97161; 97165; 97530; 97535; 99285; C8929; G0378; J1200; J1885; J2919; J9999

== ENCOUNTER → 2025-04-26 11:34 | Outpatient (BNVA) | payer MEDICARE, OTHER, SELFPAY | PROVIDERS: PCP Family Medicine; Visit Provider Internal Medicine Cardiovascular Disease | DX: I48.0 Paroxysmal atrial fibrillation (principal); I10 Essential (primary) hypertension; E78.5 Hyperlipidemia, unspecified; M79.89 Other specified soft tissue disorders; Z86.73 Personal history of transient ischemic attack (TIA), and cerebral infarction without residual deficits | CPT/HCPCS: 99214 ==

== ENCOUNTER → 2025-05-05 15:12 | Outpatient (BNVA) | payer MEDICARE, OTHER, SELFPAY | PROVIDERS: PCP Family Medicine; Visit Provider Family Medicine | DX: E87.6 Hypokalemia (principal); N18.31 Chronic kidney disease, stage 3a | CPT/HCPCS: 80048 ==

== ENCOUNTER → 2025-06-03 12:13 | Outpatient (BNVA) | payer MEDICARE, OTHER, SELFPAY | PROVIDERS: PCP Family Medicine; Visit Provider Family Medicine | DX: M79.10 Myalgia, unspecified site (principal); R53.83 Other fatigue | CPT/HCPCS: 82306; 82607; 85025 ==

== ENCOUNTER 2025-06-16 09:10 | Outpatient (CLI) | payer MEDICARE, OTHER, SELFPAY ==
--- NOTE | 2025-06-16 08:15 | US_ITS ---
WS: [id number] US pelvic complete* [id number] HISTORY: postmenopausal vag bleeding COMPARISON: None available. Uterus: 7.7 cm x 2.4 cm x 1.8 cm. Atrophic anteverted uterus. Endometrium: incompletely and poorly visualized endometrium. Measurement cannot be obtained. The endometrium is not very well visualized. Neither ovary is identified. No free fluid in the cul-de-sac. US/US pelvic complete* [id number] IMPRESSION: 1. Incomplete evaluation of the endometrium. This is an incomplete evaluation of the endometrium for postmenopausal bleeding. Only transabdominal imaging per formed. If the patient is unable to perform transvaginal pelvic ultrasound cons ider DIVISION DIRECTOR MRI protocol to evaluate the endometrium. 2. Neither ovary identified. 3. Atrophic anteverted uterus.
== END 2025-06-16 09:11 | disposition home or self-care (01) ==
LOC: RAD 09:10
PROVIDERS: PCP Family Medicine; Visit Provider Family Medicine
DX: N95.0 Postmenopausal bleeding (principal); Z90.722 Acquired absence of ovaries, bilateral; N85.4 Malposition of uterus
CPT/HCPCS: 76856

== ENCOUNTER → 2025-08-23 10:53 | Outpatient (BNVA) | payer MEDICARE, OTHER, SELFPAY | PROVIDERS: PCP Family Medicine; Visit Provider Family Medicine | DX: I48.91 Unspecified atrial fibrillation (principal); I10 Essential (primary) hypertension; D64.9 Anemia, unspecified | CPT/HCPCS: 80048; 84439; 84443; 85025 ==

== ENCOUNTER → 2025-08-24 08:44 | Outpatient (BNVA) | payer MEDICARE, OTHER, SELFPAY | PROVIDERS: PCP Family Medicine; Visit Provider Family Medicine | DX: D64.9 Anemia, unspecified (principal) | CPT/HCPCS: 82270 ==